=== PATIENT | female | born 1930 | race Caucasian/White ===

== ENCOUNTER 2017-09-16 11:41 | Inpatient (IN) | payer MEDICARE, OTHER ==
[2017-09-16] MEDS ORDERED: Ketorolac INJ* 30 MG/ML 1 ML VIAL IV PUSH ONE (13:24)
[2017-09-16] MEDS ORDERED: NS 0.9% 1000 ML* 1,000 ML IV ONE (13:24)
[2017-09-16 14:11] LABS: Urine Appearance Cloudy; Urine Blood 3+ (Negative); Urine Color Yellow; Urine Ketones Negative (Negative); Urine Protein 1+(30 mg/dL) (Negative); Urine Specific Gravity 1.015 (1.010-1.030); Urine Urobilinogen Negative (Negative)
[2017-09-16 14:18] LABS: ABS Basophils 0 10^3/ul (0-0.2); ABS Eosinophils 0.2 10^3/ul (0-0.6); ABS Lymphocytes 0.8 10^3/ul (1.0-4.8); ABS Monocytes 0.6 10^3/ul (0-0.8); ABS Neutrophils 4.2 10^3/ul (1.5-7.7); ABS Nucleated RBC 0 10^3/ul; Eosinophil % 2.6 % (0-6); Hematocrit 30 % (35-47); Lymphocyte % 14.2 % (25-47); Mean Corpuscular HGB Conc 33 g/dl (31-36); Mean Corpuscular Hemoglobin 28 pg (27-31); Mean Corpuscular Volume 83 fL (80-97); Mean Platelet Volume 11.2 um3 (7.4-10.4); Nucleated Red Blood Cells % 0; Platelet Count 118 10^3/ul (150-450); Red Blood Count 3.64 10^6/ul (4.00-5.40); Red Cell Distribution Width 16 % (10.5-15); White Blood Count 5.9 10^3/ul (3.5-10.8)
[2017-09-16 14:23] LABS: EGFR Non-African American 39.4 (>60)
[2017-09-16 14:39] LABS: INR 8.17 (0.77-1.02)
[2017-09-16] MEDS ORDERED: Phytonadione INJ (Adult)* 10 MG/ML 1 ML AMP SUBCUT ONE (14:44)
[2017-09-16] MEDS ORDERED: cefTRIAXone(*) 1 GM in NS 0.9% 50 ML* 50 ML IVPB ONE (14:46)
[2017-09-16] MEDS ORDERED: Ondansetron 40 MG VIAL* 2 MG/ML 20 ML VIAL IV PRN (16:34)
[2017-09-16] MEDS ORDERED: guaiFENesin ER TAB 600 MG PO PRN (16:35)
[2017-09-16] MEDS ORDERED: traMADol TAB* 50 MG PO PRN (16:35)
--- NOTE | 2017-09-16 16:41 | RAD ---
CLINICAL HISTORY: R flank pain, blood in urine , COMPARISON: None TECHNIQUE: Multiple contiguous axial CT scans were obtained of the abdomen and pelvis, without intravenous contrast enhancement. Coronal and sagittal multiplanar reformations are submitted for review. Oral contrast was not administered. FINDINGS: The study is limited by the lack of intravenous contrast. This limits evaluation of the solid organs and vasculature. Evaluation is also limited by streak artifact from spinal fusion hardware and bilateral hip metallic hardware. This limits evaluation of the pelvic organs. LUNG BASES: The lung bases are clear. LIVER: The liver is normal in shape, size, contour, and attenuation. BILE DUCTS: There is no intrahepatic or extrahepatic biliary dilatation. GALLBLADDER: The gallbladder is normal, without pericholecystic inflammatory change. PANCREAS: The pancreas is normal, without mass or ductal dilatation. SPLEEN: Normal in size and appearance. UPPER GI TRACT: Evaluation of the gastrointestinal tract is limited by incomplete gastric distention. The upper GI tract is unremarkable. SMALL BOWEL AND MESENTERY: The small bowel is normal in contour, course, and caliber. There is no obstruction or dilatation. COLON: There is extensive diverticulosis of the transverse and descending colon. There is a tubular, vermiform, hollow viscus that is blind ending, and originates from the cecum, consistent with a normal appendix. There is no periappendiceal inflammatory change. This is best seen on axial images 76. 3. ADRENALS: Normal bilaterally. KIDNEYS: There are staghorn calculi of the upper pole of left kidney. There are nonobstructing calyceal stones of lower pole of left kidney. Additionally, there is a 0.3 cm calculus of the right UVJ. There is no appreciable hydronephrosis. BLADDER: There is a 0.2 cm calculus of the right UVJ. PELVIC ORGANS: The uterus and adnexa are grossly normal for technique. AORTA: The patient is status post aortic stent graft. 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 IVC: Unremarkable LYMPH NODES: There is no lymphadenopathy by size criteria. ABDOMINAL WALL: There is no evidence for abdominal wall hernia. BONES AND SOFT TISSUES: There is diffuse osteopenia. The patient is status post internal fixation of the left femur. The patient is status post right hip arthroplasty. The patient is status post laminectomy and spinal fusion. OTHER: None IMPRESSION: 1. LEFT NEPHROLITHIASIS, INCLUDING STAGHORN CALCULI OF THE UPPER POLE OF LEFT KIDNEY. 2. THERE IS A 0.2 CM CALCULUS OF THE RIGHT UVJ WITHOUT APPRECIABLE HYDRONEPHROSIS. 3. STATUS POST AORTIC STENT GRAFT. 4. DIVERTICULOSIS.
[2017-09-16] MEDS ORDERED: Tamsulosin CAP* 0.4 MG PO ONE (17:18)
[2017-09-16] MEDS ORDERED: hydrALAZINE IV* 20 MG/ML VIAL IV SLOW PU PRN (17:25)
--- NOTE | 2017-09-16 17:53 | ED ---
William Osborne Jade, scribed for Kalin Wayne MD on 09/16/17 at 1329 . GI/ HPI - HPI Summary HPI Summary: Pt is an 86 y/o female BIBA c/o flank pain. As per patient, she has been having right flank pain, abdominal pain, and hematuria for at least 1 month. Pt is a poor historian. She denies any injury or abdominal surgeries. Pt is on Coumadin. - History of Current Complaint Chief Complaint: EDFlankPain Time Seen by Provider: 09/16/17 12:33 Stated Complaint: FLANK PAIN Hx Obtained From: Patient Onset/Duration: Started Weeks Ago - At least 1 month ago, Still Present Pain Intensity: 5 Location of Pain: Other - Right flank and abdomen Associated Signs and Symptoms: Positive: Hematuria - Allergy/Home Medications Allergies/Adverse Reactions: Allergies Allergy/AdvReac Type Severity Reaction Status Date / Time No Known Allergies Allergy Verified 09/16/17 14:32 Home Medications: Home Medications Calcium Carbonate/Vitamin D3 [Calcium 600+D3 600-400 mg-Unit] 1 tab PO TID 09/16 [History Confirmed 09/16/17] Carvedilol TAB* [Coreg TAB*] 3.125 mg PO BID 09/16/17 [History Confirmed ] Losartan TAB* [Cozaar TAB*] 100 mg PO DAILY 09/16/17 [History Confirmed 09/16/17 ] Meclizine TAB* [Antivert 12.5 TAB*] 12.5 mg PO Q6HR 09/16/17 [History Confirmed 09/16/17] Meclizine TAB* [Antivert 12.5 TAB*] 12.5 mg PO QAM 09/16/17 [History Confirmed 09/16/17] Pantoprazole TAB (NF) [Protonix TAB (NF)] 40 mg PO DAILY 09/16/17 [History Confirmed 09/16/17] Warfarin TAB(*) [Coumadin TAB(*)] 1 mg PO QPM 09/16/17 [History Confirmed ] Zinc Oxide [Desitin] 13 % TOPICAL BID 09/16/17 [History Confirmed 09/16/17] amLODIPine TAB* [Norvasc 5 mg TAB*] 5 mg PO DAILY 09/16/17 [History Confirmed ] fentaNYL PATCH 12 MCG/HR * [Duragesic Patch 12 Mcg/Hr *] 12 mcg TRANSDERM Q72H 09/16/17 [History Confirmed 09/16/17] guaiFENesin ER TAB [Mucinex*] 600 mg PO BID PRN 09/16/17 [History Confirmed ] traMADol TAB* [Ultram*] 50 mg PO Q6HR PRN 09/16/17 [History Confirmed 09/16/17] PMH/Surg Hx/FS Hx/Imm Hx Cardiovascular History: Reports: Hx Hypertension Musculoskeletal History: Reports: Hx Arthritis Infectious Disease History: No Infectious Disease History: Denies: Traveled Outside the [place] in Last 30 Days - Family History Known Family History: Negative: Diabetes - Social History Alcohol Use: None Substance Use Type: Reports: None Smoking Status (MU): Never Smoked Tobacco Review of Systems Positive: Abdominal Pain Positive: flank pain - Right, hematuria All Other Systems Reviewed And Are Negative: Yes Physical Exam - Summary Physical Exam Summary: Appearance: Well appearing, no pain distress Skin: warm, dry, reflects adequate perfusion Head/face: normal Eyes: EOMI, HOWIE ENT: normal Neck: supple, non-tender Respiratory: CTA, breath sounds present Cardiovascular: RRR, pulses symmetrical Abdomen: soft. No CVA tenderness. Tenderness over the right flank and RLQ without rebound or guarding. Low transverse surgical scar. Bowel Sounds: present Musculoskeletal: normal, strength/ROM intact Neuro: sensory motor intact, A&Ox3. Mild confusion. Triage Information Reviewed: Yes Vital Signs On Initial Exam: Initial Vitals Resp 19 09/16/17 12:14 Vital Signs Reviewed: Yes Diagnostics - Vital Signs Vital Signs Temp Pulse Resp BP Pulse Ox 09/16/17 13:01 18 128/76 09/16/17 13:00 97.6 F 66 17 128/76 98 09/16/17 12:18 67 18 131/79 99 09/16/17 12:14 19 - Laboratory Lab Results: Lab Results 09/16/17 09/16/17 09/16/17 Range/Units 13:52 13:52 13:52 WBC 5.9 (3.5-10.8) 10^3/ul RBC 3.64 L (4.00-5.40) 10^6/ul Hgb 10.0 L (12.0-16.0) g/dl Hct 30 L (35-47) % MCV 83 (80-97) fL MCH 28 (27-31) pg MCHC 33 (31-36) g/dl RDW 16 H (10.5-15) % Plt Count 118 L (150-450) 10^3/ul MPV 11.2 H (7.4-10.4) um3 Neut % (Auto) 72.4 (38-83) % Lymph % (Auto) 14.2 L (25-47) % Alexander % (Auto) 10.3 H (0-7) % Eos % (Auto) 2.6 (0-6) % Baso % (Auto) 0.5 (0-2) % Absolute Neuts (auto) 4.2 (1.5-7.7) 10^3/ul Absolute Lymphs (auto) 0.8 L (1.0-4.8) 10^3/ul Absolute Monos (auto) 0.6 (0-0.8) 10^3/ul Absolute Eos (auto) 0.2 (0-0.6) 10^3/ul Absolute Basos (auto) 0 (0-0.2) 10^3/ul Absolute Nucleated RBC 0 10^3/ul Nucleated RBC % 0 INR (Anticoag Therapy) 8.17 H* (0.77-1.02) Sodium (135-145) mmol/L Potassium (3.5-5.0) mmol/L Chloride (101-111) mmol/L Carbon Dioxide (22-32) mmol/L Anion Gap (2-11) mmol/L BUN (6-24) mg/dL Creatinine (0.51-0.95) mg/dL Est GFR ( Amer) (>60) Est GFR (Non-Af Amer) (>60) BUN/Creatinine Ratio (8-20) Glucose (70-100) mg/dL Calcium (8.6-10.3) mg/dL Total Bilirubin (0.2-1.0) mg/dL AST (13-39) U/L ALT (7-52) U/L Alkaline Phosphatase (34-104) U/L Total Protein (6.4-8.9) g/dL Albumin (3.2-5.2) g/dL Globulin (2-4) g/dL Albumin/Globulin Ratio (1-3) Urine Color Yellow Urine Appearance Cloudy Urine pH 5.0 (5-9) Ur Specific [place] 1.015 (1.010-1.030) Urine Protein 1+(30 mg/dl) A (Negative) Urine Ketones Negative (Negative) Urine Blood 3+ A (Negative) Urine Nitrate Positive A (Negative) Urine Bilirubin Negative (Negative) Urine Urobilinogen Negative (Negative) Ur Leukocyte Esterase 3+ A (Negative) Urine WBC (Auto) 3+(>20/hpf) A (Absent) Urine RBC (Auto) 3+(>10/hpf) A (Absent) Ur Squamous Epith Cells Present A (Absent) Uric Acid Crystals Present A (Absent) Urine Bacteria 2+ A (Absent) Urine Glucose Negative (Negative) Blood Type 09/16/17 09/16/17 Range/Units 13:52 13:52 WBC (3.5-10.8) 10^3/ul RBC (4.00-5.40) 10^6/ul Hgb (12.0-16.0) g/dl Hct (35-47) % MCV (80-97) fL MCH (27-31) pg MCHC (31-36) g/dl RDW (10.5-15) % Plt Count (150-450) 10^3/ul MPV (7.4-10.4) um3 Neut % (Auto) (38-83) % Lymph % (Auto) (25-47) % Alexander % (Auto) (0-7) % Eos % (Auto) (0-6) % Baso % (Auto) (0-2) % Absolute Neuts (auto) (1.5-7.7) 10^3/ul Absolute Lymphs (auto) (1.0-4.8) 10^3/ul Absolute Monos (auto) (0-0.8) 10^3/ul Absolute Eos (auto) (0-0.6) 10^3/ul Absolute Basos (auto) (0-0.2) 10^3/ul Absolute Nucleated RBC 10^3/ul Nucleated RBC % INR (Anticoag Therapy) (0.77-1.02) Sodium 137 (135-145) mmol/L Potassium 4.2 (3.5-5.0) mmol/L Chloride 105 (101-111) mmol/L Carbon Dioxide 26 (22-32) mmol/L Anion Gap 6 (2-11) mmol/L BUN 45 H (6-24) mg/dL Creatinine 1.29 H (0.51-0.95) mg/dL Est GFR ( Amer) 50.6 (>60) Est GFR (Non-Af Amer) 39.4 (>60) BUN/Creatinine Ratio 34.9 H (8-20) Glucose 102 H (70-100) mg/dL Calcium 10.1 (8.6-10.3) mg/dL Total Bilirubin 1.00 (0.2-1.0) mg/dL AST 17 (13-39) U/L ALT 8 (7-52) U/L Alkaline Phosphatase 77 (34-104) U/L Total Protein 7.3 (6.4-8.9) g/dL Albumin 3.7 (3.2-5.2) g/dL Globulin 3.6 (2-4) g/dL Albumin/Globulin Ratio 1.0 (1-3) Urine Color Urine Appearance Urine pH (5-9) Ur Specific [place] (1.010-1.030) Urine Protein (Negative) Urine Ketones (Negative) Urine Blood (Negative) Urine Nitrate (Negative) Urine Bilirubin (Negative) Urine Urobilinogen (Negative) Ur Leukocyte Esterase (Negative) Urine WBC (Auto) (Absent) Urine RBC (Auto) (Absent) Ur Squamous Epith Cells (Absent) Uric Acid Crystals (Absent) Urine Bacteria (Absent) Urine Glucose (Negative) Blood Type O Positive Result Diagrams: 09/16/17 13:52 09/16/17 13:52 Lab Statement: Any lab studies that have been ordered have been reviewed, and results considered in the medical decision making process. Re-Evaluation - Re-Evaluation First Eval Change: Improved GIGU Course/Dx - Course Course Of Treatment: Patient with gross hematuria and now improved. There is blood still in the urine and the INR is greater than 8. CT scan was obtained due to pain. This is pending at time of consultation for hospitalization. Rocephin given as urine is dirty. We will consult urology if stone present. CT scan has resulted and show staghorn calculi in the left kidney. She has a right UVJ stone. This is not causing appreciable hydronephrosis. Patient has been transfused plasma and given vitamin K for her hypercoagulability due to Coumadin. Urology consult placed. They will speak directly to the hospitalist. - Diagnoses Differential Diagnoses - Female: Other - Kidney stone, bladder mass, renal mass , phlegmon, UTI Provider Diagnoses: Renal colic on right side, Urinary tract infection, Staghorn renal calculus, Ureterolithiasis, Elevated INR, Hematuria, gross - Physician Notifications Discussed Care Of Patient With: Lori Berman - Dr. Rojas from urology consuled Time Discussed With Above Provider: 15:36 Instructed by Provider To: Admit As Inpatient - Critical Care Time Critical Care Time: 30-74 min - Critical care time is exclusive of separately billable procedures Discharge - Sign-Out/Discharge Documenting (check all that apply): Discharge/Admit/Transfer - Admit - Discharge Plan Condition: Guarded Disposition: ADMITTED TO [facility] - Billing Disposition and Condition Condition: GUARDED Disposition: Admitted to [facility] The documentation as recorded by the William avilez Jade accurately reflects the service I personally performed and the decisions made by , Kalin Wayne MD.
[2017-09-16] MEDS: Meclizine TAB* 12.5 MG PO SCH ×2 (18:18→23:21)
[2017-09-16] MEDS: fentaNYL PATCH 12 MCG/HR TRANSDERM SCH (18:19)
[2017-09-16] MEDS: traMADol TAB* 50 MG PO SCH (21:03)
[2017-09-16] MEDS: Calcium/Vitamin D TAB 250/125* TAB PO SCH (21:03)
[2017-09-16] MEDS: Carvedilol TAB* 3.125 MG PO SCH (21:04)
--- NOTE | 2017-09-16 21:49 | HP ---
CC: Suki Harper NP * ADMISSION HISTORY AND PHYSICAL: DATE OF ADMISSION: 09/16/17. PRIMARY CARE PROVIDER: Suki Harper NP, at [facility]. MY ATTENDING WHILE IN THE HOSPITAL: Dr. Lori Berman.* (DICTATED BY JAYDON HERNANDEZ) CHIEF COMPLAINT: Altered mental status, flank pain. HISTORY OF PRESENT ILLNESS: Ms. Tellez is an 86-year-old female with past medical history significant for dementia, history of DVT, vertigo, hypertension , chronic pain, and GERD, who presents with one week of altered mental status on top of her base line dementia being more withdrawn, eating her meals in her room, and complaining of vague generalized pain, which the patient has a history of. The patient is a very poor historian. It is hard for her to understand questioning and often goes off on tangents related to her past medical history, which are very vague. The patient's only discrete symptom was that she states last night she had excruciating pain in her right flank, which is decreased this morning, but prompted her to contact the nurse at [facility] and the nurse sent her in. The staff at [facility] states that they sent her in because of hematuria, which they first noted this morning. The patient does not state she has never had anything like this before, but is difficult to tell the veracity of this. Based on the review of records, it looks as if the patient started going to [facility] at the end of July. The patient has no records in our system. Besides [facility] staff, no collateral source of information was able to be obtained as the patient's [id number] and daughter , who she delegated as her contacts through [facility] are unreachable. The patient's INR was 8.0. In the setting of acute bleeding, she received vitamin K in the emergency department. The patient is not anemic, not hypotensive, not tachycardic, but due to elevated INR and ongoing hematuria, we were asked to evaluate for admission. PAST MEDICAL HISTORY: DVT of the lower leg, vertigo, hypertension, GERD, chronic pain due to lumbar stenosis, dementia, anemia, thrombocytopenia, depression. PAST SURGICAL HISTORY: Left hip fracture, status post ORIF. Right hip total arthroplasty, aortic stent graft. MEDICATIONS: 1. Losartan 100 mg p.o. daily. 2. Meclizine 12.5 mg q.6 hours as needed. 3. Amlodipine 5 mg p.o. daily. 4. Protonix 40 mg p.o. daily. 5. Warfarin 3 mg p.o. daily. 6. Coreg 3.125 mg p.o. b.i.d. 7. Artemio-D 600/400 one tab p.o. daily. 8. Fentanyl 12 mcg per hour patch q.72 hours. 9. Guaifenesin 600 mg p.o. b.i.d. as needed for cough. 10. Tramadol 50 mg p.o. q.6 hours as needed for pain. ALLERGIES: No known drug allergies. FAMILY HISTORY: The patient states that both her parents of heart failure and unable to elaborate on this further. SOCIAL HISTORY: The patient denies smoking, drinking, or ever using illicit drugs. 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 The patient was . She is 17 years ago, and has two children. REVIEW OF SYSTEMS: It is difficult for the patient to respond to a review of systems. The patient denies fever, chills, chest pain, shortness of breath, nausea, vomiting, diarrhea or constipation, difficulty swallowing, easy bruising recent weight loss, rashes, dysuria or other pain. PHYSICAL EXAMINATION GENERAL: The patient is an 86-year-old female, who appears stated age and sitting comfortably in bed, in no acute distress. VITAL SIGNS: At the time of admission, temperature 97.6, pulse rate 72, respiratory rate 13, oxygen saturation 99% on room air, blood pressure 155/85. HEENT: Head: Normocephalic, atraumatic. Sclerae anicteric. No conjunctival injection. Nasal mucosa is moist. Oral mucosa moist. No pharyngeal erythema, discharge or exudate. NECK: Supple, nontender. No lymphadenopathy. No JVD. No carotid bruits auscultated. RESPIRATORY: Clear to auscultation bilaterally. No wheezes, rales or rhonchi. Good air exchange bilaterally. CARDIAC: Regular rate and rhythm. No clicks, murmurs, gallops or rubs. Pulses are 2+ in bilateral dorsalis pedis, posterior tibialis, and radial areas. No bilateral calf tenderness noted to palpation. ABDOMEN: Soft, nontender, nondistended. Bowel sounds present and normoactive in all 4 quadrants. No hepatosplenomegaly. No abdominal bruits auscultated. GENITOURINARY: No suprapubic or CVA tenderness. Urine noted in bedside commode to be light pink with absence of clots. SKIN: Clean, dry, intact. No rash. PSYCHIATRIC: Pleasant and cooperative. NEUROLOGIC: Cranial nerves II through XII intact. No focal deficits. Alert to self, year, month, but not place or time. The patient did not know who the President is. The patient has occasional difficulty with word finding. No other focal deficits. DIAGNOSTIC STUDIES/LAB DATA: White blood cell count 5.9, hemoglobin 10.0, RDW 16, platelet count 118. INR 8.17. Sodium 137, potassium 4.2, chloride 105, carbon dioxide 26, anion gap 6, BUN 45, creatinine 1.29, glucose 102, AST 17, ALT 8. Total bilirubin 0.1, alkaline phosphatase 77. Total protein 7.3, albumin 3.7, globulin 3.6. Urine yellow cloudy, pH of 5.0, specific gravity 1.015, protein +1, negative ketones, 3+ blood, positive nitrite, negative bilirubin, negative urobilinogen, 3+ leukocyte esterase, 3+ white blood cells, 3 + red blood cells, squamous epithelial cells, uric acid crystals, and urine bacteria all present. Studies: Abdomen and pelvis CT read as diverticulosis, normal appendix, staghorn calculi in the upper pole of the left kidney, nonobstructive calyceal stones in lower pole of the left kidney, 0.3 cm calculus in the right UVJ. No appreciable hydronephrosis. Aortic stent graft. ASSESSMENT AND PLAN/IMPRESSION: Ms. Tellez is an 86-year-old female with past medical history significant for deep venous thromboses, on Coumadin therapy , hypertension, gastroesophageal reflux disease, and dementia, who presents with gross hematuria in the setting of a supratherapeutic INR at 8.17. The patient received vitamin K in the emergency department and is mildly anemic. The patient has moderate amount of hematuria. The patient will be admitted to the hospital to monitor decrease in her INR, her hemoglobins, and for possible urological consult if no resolution. 1. Hematuria. The patient's hematuria is likely related to the supratherapeutic INR in the setting of small amount of obstructing renal calculi. The patient was given vitamin K in the emergency department. The patient has a fresh-frozen plasma available; however, she is currently only mildly anemic, which according to [facility] is around her baseline and is not having brisk hematuria. The patient will be monitored with hemoglobin and hematocrits, serial INRs, and repeat vitamin K as needed. The patient does not have clots in her urine and does not have a large amount of clot burden noted in her bladder on CT. There should be a consideration for urological consult if the patient's pain changes significantly in character, repeat imaging of the abdomen should be ordered as indicated for concern for hydronephrosis developing. However, the patient's stones are rather small and not likely to obstruct and will likely pass on their own. The patient will be given Flomax for facilitating passage of her kidney stone as well as pain control. This should be continued as tolerated by the patient's blood pressure. 2. Nephrolithiasis. The patient has staghorn calculi likely related to her urinary tract infection, which may have been going on for up to a week. The patient also has uric acid crystals in her urine. It is unclear if there is one or more pathologic processes going on at this time. It is likely that given the staghorn nature of these calculi in the setting of urinary tract infection that these are infection stones causing hematuria. The patient is not in need of urgent urologic consultation; however, with her lack of improvement in the patient, Urology should be consulted for possible cauterization inside the bladder or kidneys and consideration for urologic followup outpatient to assess the need for a non-emergent removal of the patient 's stone should be considered. 3. Urinary tract infection. The patient's urine shows 3+ leukocyte esterase and positive nitrites. The patient will be started on ceftriaxone, and the patient is not septic, common culprits for infection stones should be covered by ceftriaxone. Culture is pending. Blood cultures will be drawn. 4. History of deep venous thrombosis. The patient is supratherapeutic on her warfarin likely due to her lethargy over the past week and likely decreased oral intake. The patient's previous INRs were all therapeutic or mildly supratherapeutic. The patient will have her warfarin held at this time and has been given vitamin K. 5. Vertigo. Continue p.r.n. meclizine. 6. Chronic pain. Continue fentanyl and p.r.n. tramadol, renally dosed. 7. Acute kidney injury. Elevated creatinine, unknown chronicity. The patient' s creatinine is 1.29. The patient does not appear to be dehydrated. We will give gentle fluids and assess for improvement of the patient's creatinine. It is unknown if the patient has chronic kidney disease and if she does to what degree. 8. Hypertension. Continue amlodipine. Hold losartan in the setting of increased creatinine, possibly acute. Continue Coreg. 9. Gastroesophageal reflux disease. Continue Protonix. The patient has no known history of peptic ulcer disease, order a stool occult blood to assess for possible gastrointestinal bleeding in the setting of supratherapeutic INR. 10. Dementia, supportive care. The patient is a poor historian. We will attempt to gain further history from the patient's daughter and [id number] when they are available. 11. DVT prophylaxis: The patient is supratherapeutic on her INR. The patient is at high risk due to the history of DVT. 12. Fluids, electrolytes, and nutrition: The patient will have a heart- healthy diet without caffeine and lactated Ringer's of 75 mL an hour. 13. Code status. The patient indicates she would like to be DNR; however, she is not competent to make decisions at this time. The patient will be full code. Pending discussion with her daughter, who is her power of trial attorney and healthcare proxy. 14. Disposition. The patient is admitted inpatient. TIME SPENT: Approximately, 75 minutes was spent on this admission, 45 of which was spent [id number] with the patient obtaining history and physical and discussing the treatment plan. This plan was discussed with my attending, Dr. Lori Berman, and she is in agreement as well. JAYDON HERNANDEZ [id number]/CPS #: [id number]
[2017-09-17] MEDS: Omeprazole CAP* 20 MG PO SCH (05:49)
[2017-09-17] MEDS: Meclizine TAB* 12.5 MG PO SCH ×6 (05:50→23:48)
[2017-09-17 07:03] LABS: INR 2.69 (0.77-1.02)
[2017-09-17 07:09] LABS: Hematocrit 24 % (35-47); Hemoglobin 8.2 g/dl (12.0-16.0); Mean Corpuscular HGB Conc 34 g/dl (31-36); Mean Corpuscular Hemoglobin 28 pg (27-31); Mean Corpuscular Volume 82 fL (80-97); Mean Platelet Volume 11.3 um3 (7.4-10.4); Platelet Count 80 10^3/ul (150-450); Red Blood Count 2.98 10^6/ul (4.00-5.40); Red Cell Distribution Width 16 % (10.5-15); White Blood Count 4.7 10^3/ul (3.5-10.8)
[2017-09-17 07:16] LABS: EGFR Non-African American 44.1 (>60)
[2017-09-17 07:33] LABS: ABS Basophils 0 10^3/ul (0-0.2); ABS Eosinophils 0.2 10^3/ul (0-0.6); ABS Lymphocytes 0.6 10^3/ul (1.0-4.8); ABS Monocytes 0.5 10^3/ul (0-0.8); ABS Neutrophils 3.4 10^3/ul (1.5-7.7); ABS Nucleated RBC 0 10^3/ul; Eosinophil % 3.3 % (0-6); Lymphocyte % 12.2 % (25-47); Nucleated Red Blood Cells % 0.1
[2017-09-17] MEDS: Acetaminophen TAB* 325 MG PO PRN (07:56)
[2017-09-17] MEDS: amLODIPine TAB* 5 MG PO SCH (07:57)
[2017-09-17] MEDS: Carvedilol TAB* 3.125 MG PO SCH ×2 (07:57→21:12)
[2017-09-17] MEDS: Calcium/Vitamin D TAB 250/125* TAB PO SCH ×3 (07:57→21:12)
[2017-09-17] MEDS: traMADol TAB* 50 MG PO SCH ×2 (07:57→21:11)
--- NOTE | 2017-09-17 08:23 | PN ---
Subjective Date of Service: 09/17/17 Interval History: Seen and evaluated at the bedside at 1600: Patient reports she is feeling "much better today compared to yesterday". She reports she was up in the chair today. She denies any abdominal pain/N/V. She reports "right low back/butt pain" while pointing to her right hip. Denies flank pain. She states this pain travels down her right leg. Denies numbness or tingling. No fevers or chills She is not sure if she has blood in her urine. Denies dysuria Objective Active Medications: Acetaminophen (Tylenol Tab*) 650 mg PO Q6H PRN PRN Reason: FEVER/PAIN Last Admin: 09/17/17 07:56 Dose: 650 mg Amlodipine Besylate (Norvasc Tab*) 5 mg PO DAILY [facility] Last Admin: 09/17/17 07:57 Dose: 5 mg Calcium/Vitamin D (Oscal D Tab 250/125*) 1 tab PO TID [facility] Last Admin: 09/17/17 07:57 Dose: 1 tab Carvedilol (Coreg Tab*) 3.125 mg PO BID [facility] Last Admin: 09/17/17 07:57 Dose: 3.125 mg Fentanyl (Duragesic Patch 12 Mcg/Hr *) 12 mcg TRANSDERM Q72H [facility] Last Admin: 09/16/17 18:19 Dose: 12 mcg Guaifenesin (Mucinex*) 600 mg PO BID PRN PRN Reason: COUGH Hydralazine HCl (Apresoline Iv*) 5 mg IV SLOW PU Q6H PRN PRN Reason: SYSTOLIC BP GREATER THAN: Lactated Ringer's (Lactated Ringers 1000 Ml Bag*) 1,000 mls @ 75 mls/hr IV PER RATE [facility] Last Admin: 09/17/17 05:55 Dose: 75 mls/hr Ceftriaxone Sodium 1 gm/ (Sodium Chloride) 50 mls @ 200 mls/hr IVPB Q24H [facility] Meclizine HCl (Antivert Tab*) 12.5 mg PO Q6HR [facility] Last Admin: 09/17/17 05:50 Dose: 12.5 mg Meclizine HCl (Antivert Tab*) 12.5 mg PO QAM [facility] Last Admin: 09/17/17 07:59 Dose: Not Given Omeprazole (Prilosec Cap*) 20 mg PO DAILY@0730 [facility] Last Admin: 09/17/17 05:49 Dose: 20 mg Ondansetron HCl (Zofran 40 Mg Vial*) 4 mg IV Q6H PRN PRN Reason: NAUSEA Tramadol HCl (Ultram*) 50 mg PO Q12HR [facility] Last Admin: 09/17/17 07:57 Dose: 50 mg Vital Signs - 8 hr 09/17/17 09/17/17 03:37 07:57 Pulse Rate 69 Respiratory 16 16 Rate Blood Pressure 128/66 (mmHg) O2 Sat by Pulse 97 Oximetry Oxygen Devices in Use Now: None Appearance: 86 yo female alert and orientd with noted cognitive decline. Eyes: No Scleral Icterus, PERRLA Ears/Nose/Mouth/Throat: NL Teeth, Lips, Gums, Mucous Membranes Moist Neck: NL Appearance and Movements; NL JVP Respiratory: Symmetrical Chest Expansion and Respiratory Effort, Clear to Auscultation Cardiovascular: NL Sounds; No Murmurs; No JVD, RRR, No Edema Abdominal: NL Sounds; No Tenderness; No Distention, - - no CVA tenderness Extremities: No Edema, No Clubbing, Cyanosis, - - right sacroiliac joint tender to palpation Skin: No Rash or Ulcers, No Nodules or Sclerosis Neurological: NL Sensation, NL Muscle Strength and Tone - alert & oriented Lines/Tubes/Other Access: Clean, Dry and Intact Peripheral IV Nutrition: Taking PO's Result Diagrams: 09/17/17 10:11 09/17/17 06:26 Additional Lab and Data: Lab Results 09/16/17 09/16/17 09/16/17 Range/Units 13:52 13:52 13:52 WBC 5.9 (3.5-10.8) 10^3/ul RBC 3.64 L (4.00-5.40) 10^6/ul Hgb 10.0 L (12.0-16.0) g/dl Hct 30 L (35-47) % MCV 83 (80-97) fL MCH 28 (27-31) pg MCHC 33 (31-36) g/dl RDW 16 H (10.5-15) % Plt Count 118 L (150-450) 10^3/ul MPV 11.2 H (7.4-10.4) um3 Neut % (Auto) 72.4 (38-83) % Lymph % (Auto) 14.2 L (25-47) % [place] % (Auto) 10.3 H (0-7) % Eos % (Auto) 2.6 (0-6) % Baso % (Auto) 0.5 (0-2) % Absolute Neuts (auto) 4.2 (1.5-7.7) 10^3/ul Absolute Lymphs (auto) 0.8 L (1.0-4.8) 10^3/ul Absolute Monos (auto) 0.6 (0-0.8) 10^3/ul Absolute Eos (auto) 0.2 (0-0.6) 10^3/ul Absolute Basos (auto) 0 (0-0.2) 10^3/ul Absolute Nucleated RBC 0 10^3/ul Nucleated RBC % 0 INR (Anticoag Therapy) 8.17 H* (0.77-1.02) Sodium (135-145) mmol/L Potassium (3.5-5.0) mmol/L Chloride (101-111) mmol/L Carbon Dioxide (22-32) mmol/L Anion Gap (2-11) mmol/L BUN (6-24) mg/dL Creatinine (0.51-0.95) mg/dL Est GFR ( Amer) (>60) Est GFR (Non-Af Amer) (>60) BUN/Creatinine Ratio (8-20) Glucose (70-100) mg/dL Calcium (8.6-10.3) mg/dL Total Bilirubin (0.2-1.0) mg/dL AST (13-39) U/L ALT (7-52) U/L Alkaline Phosphatase (34-104) U/L Total Protein (6.4-8.9) g/dL Albumin (3.2-5.2) g/dL Globulin (2-4) g/dL Albumin/Globulin Ratio (1-3) Urine Color Yellow Urine Appearance Cloudy Urine pH 5.0 (5-9) Ur Specific [place] 1.015 (1.010-1.030) Urine Protein 1+(30 mg/dl) A (Negative) Urine Ketones Negative (Negative) Urine Blood 3+ A (Negative) Urine Nitrate Positive A (Negative) Urine Bilirubin Negative (Negative) Urine Urobilinogen Negative (Negative) Ur Leukocyte Esterase 3+ A (Negative) Urine WBC (Auto) 3+(>20/hpf) A (Absent) Urine RBC (Auto) 3+(>10/hpf) A (Absent) Ur Squamous Epith Cells Present A (Absent) Uric Acid Crystals Present A (Absent) Urine Bacteria 2+ A (Absent) Urine Glucose Negative (Negative) Blood Type 09/16/17 09/16/17 Range/Units 13:52 13:52 WBC (3.5-10.8) 10^3/ul RBC (4.00-5.40) 10^6/ul Hgb (12.0-16.0) g/dl Hct (35-47) % MCV (80-97) fL MCH (27-31) pg MCHC (31-36) g/dl RDW (10.5-15) % Plt Count (150-450) 10^3/ul MPV (7.4-10.4) um3 Neut % (Auto) (38-83) % Lymph % (Auto) (25-47) % [place] % (Auto) (0-7) % Eos % (Auto) (0-6) % Baso % (Auto) (0-2) % Absolute Neuts (auto) (1.5-7.7) 10^3/ul Absolute Lymphs (auto) (1.0-4.8) 10^3/ul Absolute Monos (auto) (0-0.8) 10^3/ul Absolute Eos (auto) (0-0.6) 10^3/ul Absolute Basos (auto) (0-0.2) 10^3/ul Absolute Nucleated RBC 10^3/ul Nucleated RBC % INR (Anticoag Therapy) (0.77-1.02) Sodium 137 (135-145) mmol/L Potassium 4.2 (3.5-5.0) mmol/L Chloride 105 (101-111) mmol/L Carbon Dioxide 26 (22-32) mmol/L Anion Gap 6 (2-11) mmol/L BUN 45 H (6-24) mg/dL Creatinine 1.29 H (0.51-0.95) mg/dL Est GFR ( Amer) 50.6 (>60) Est GFR (Non-Af Amer) 39.4 (>60) BUN/Creatinine Ratio 34.9 H (8-20) Glucose 102 H (70-100) mg/dL Calcium 10.1 (8.6-10.3) mg/dL Total Bilirubin 1.00 (0.2-1.0) mg/dL AST 17 (13-39) U/L ALT 8 (7-52) U/L Alkaline Phosphatase 77 (34-104) U/L Total Protein 7.3 (6.4-8.9) g/dL Albumin 3.7 (3.2-5.2) g/dL Globulin 3.6 (2-4) g/dL Albumin/Globulin Ratio 1.0 (1-3) Urine Color Urine Appearance Urine pH (5-9) Ur Specific [place] (1.010-1.030) Urine Protein (Negative) Urine Ketones (Negative) Urine Blood (Negative) Urine Nitrate (Negative) Urine Bilirubin (Negative) Urine Urobilinogen (Negative) Ur Leukocyte Esterase (Negative) Urine WBC (Auto) (Absent) Urine RBC (Auto) (Absent) Ur Squamous Epith Cells (Absent) Uric Acid Crystals (Absent) Urine Bacteria (Absent) Urine Glucose (Negative) Blood Type O Positive Microbiology and Other Data: Microbiology 09/16/17 18:00 Nasal Screen MRSA (PCR)(NEIDA) - Final Nasal Mrsa Not Detected Assess/Plan/Problems-Billing Assessment: 86 yo female from [employer] [place] with a PMH of DVT on coumadin, HTN, GERD , Dementia who presented with gross hematuria, flank/back pain and INR 8. Patient received Vitamin K in the ED. - Patient Problems (1) Hematuria Comment: - unclear if the patient is continuing to have hematuria. Per nursing staff they do not think so but cannot confirm this and patient is a poor historian. - HH stable. Suspect secondary to supratherapuetic INR in the setting of UTI - continue to monitor. Plan to hold coumadin at this point. (2) UTI (urinary tract infection) Comment: -continue ceftriaxone. Await urine and blood cx. No signs of sepsis. - elevated creatinine but do not know baseline, improving. - Repeat labs in am (3) Renal calculi Comment: - CT abdomen showing 0.2cm calculus (no hydronephrosis) and left nephrolithiasis including a staghorn calculi. Non-emergent. Call urology Monday , most likely this can wait as an outpt. Creatinine trending down, today 1.17, do not know baseline. (4) Chronic pain Comment: - secondary to lumbar stenosis. Fentanyl patch used at home, continue home dose 12 mcg/Q72 hours and Tramadol prn - unclear if her complaint of right hip/low back pain is d/t to chronic hx or if this is new. concerned she could have had a fall at home. Plan to obtain xray of the right hip. (5) DVT (deep venous thrombosis) Comment: - unclear to when she was dx with DVT of the lower leg. Pt is a poor historian. No records at [facility] to confirm. Called daughter with no answer. At this point plan to hold coumadin. (6) HTN (hypertension) Comment: controlled. continue home dose coreg and norvasc (7) Dementia Comment: - supportive treatment (8) DVT prophylaxis Comment: - therapuetic INR (9) Full code status Status and Disposition: Inpatient with hematuria and supratherapuetic INR abnd UTI. Most likely [employer] at discharge
[2017-09-17 10:17] LABS: Hematocrit 26 % (35-47); Hemoglobin 8.5 g/dl (12.0-16.0)
[2017-09-17] MEDS: cefTRIAXone(*) 1 GM in NS 0.9% 50 ML* 50 ML IVPB SCH (15:38)
--- NOTE | 2017-09-17 17:18 | RAD ---
HISTORY: fall/trauma, right hip pain COMPARISONS: None VIEWS: 4, Frontal view of the pelvis with frontal and frog-leg views of the right hip FINDINGS: BONE DENSITY: There is diffuse osteopenia. BONES: The patient is status post right hip arthroplasty. There is no appreciable hardware failure or osteolysis. The patient is status post internal fixation of the proximal left femur. JOINTS: The patient is status post right hip arthroplasty. There is advanced osteoarthritis of the left hip. There is osteoarthritis of the SI joints. ALIGNMENT: There is no dislocation. SOFT TISSUES: There is peripheral arterial calcification. An aortic stent graft is noted. OTHER FINDINGS: None. IMPRESSION: 1. OSTEOPENIA. 2. OSTEOARTHRITIS. 3. STATUS POST RIGHT HIP ARTHROPLASTY. 4. PERIPHERAL ARTERIAL DISEASE. 5. NO ACUTE OSSEOUS INJURY. THE DEGREE OF OSTEOPENIA MAY MAKE A NONDISPLACED FRACTURE RADIOGRAPHICALLY OCCULT. IF SYMPTOMS PERSIST, RECOMMEND REPEAT IMAGING.
[2017-09-17] MEDS ORDERED: ALPRAZolam TAB* 0.25 MG PO ONE (18:26)
[2017-09-18] MEDS: Omeprazole CAP* 20 MG PO SCH (05:57)
[2017-09-18] MEDS: Meclizine TAB* 12.5 MG PO SCH ×5 (05:57→23:59)
[2017-09-18 06:26] LABS: ABS Basophils 0 10^3/ul (0-0.2); ABS Eosinophils 0.2 10^3/ul (0-0.6); ABS Lymphocytes 0.5 10^3/ul (1.0-4.8); ABS Monocytes 0.6 10^3/ul (0-0.8); ABS Neutrophils 4.5 10^3/ul (1.5-7.7); ABS Nucleated RBC 0 10^3/ul; Eosinophil % 3.2 % (0-6); Hematocrit 25 % (35-47); Hemoglobin 8.6 g/dl (12.0-16.0); Lymphocyte % 9.1 % (25-47); Mean Corpuscular HGB Conc 34 g/dl (31-36); Mean Corpuscular Hemoglobin 28 pg (27-31); Mean Corpuscular Volume 82 fL (80-97); Mean Platelet Volume 10.9 um3 (7.4-10.4); Nucleated Red Blood Cells % 0.1; Platelet Count 93 10^3/ul (150-450); Red Blood Count 3.09 10^6/ul (4.00-5.40); Red Cell Distribution Width 15 % (10.5-15); White Blood Count 5.8 10^3/ul (3.5-10.8)
[2017-09-18 06:28] LABS: INR 2.59 (0.77-1.02)
[2017-09-18 06:34] LABS: EGFR Non-African American 48.3 (>60)
[2017-09-18] MEDS: Carvedilol TAB* 3.125 MG PO SCH ×2 (09:17→20:54)
[2017-09-18] MEDS: traMADol TAB* 50 MG PO SCH ×2 (09:17→20:54)
[2017-09-18] MEDS: Calcium/Vitamin D TAB 250/125* TAB PO SCH ×3 (09:17→20:54)
[2017-09-18] MEDS: amLODIPine TAB* 5 MG PO SCH (09:18)
--- NOTE | 2017-09-18 14:06 | PN ---
Subjective Date of Service: 09/18/17 Interval History: no complaints today, feeling better. Patient is a pivot assist to the w/c at [place], non ambulatory denies chest pain or shortness of breath. denies abd pain. n/v/d. Patient is unsure if she continues to have blood in her urine , states that she does not think so. Family History: Unchanged from Admission Social History: Unchanged from Admission Past Medical History: Unchanged from Admission Objective Active Medications: Acetaminophen (Tylenol Tab*) 650 mg PO Q6H PRN PRN Reason: FEVER/PAIN Last Admin: 09/17/17 07:56 Dose: 650 mg Amlodipine Besylate (Norvasc Tab*) 5 mg PO DAILY [facility] Last Admin: 09/18/17 09:18 Dose: 5 mg Calcium/Vitamin D (Oscal D Tab 250/125*) 1 tab PO TID [facility] Last Admin: 09/18/17 13:37 Dose: 1 tab Carvedilol (Coreg Tab*) 3.125 mg PO BID [facility] Last Admin: 09/18/17 09:17 Dose: 3.125 mg Fentanyl (Duragesic Patch 12 Mcg/Hr *) 12 mcg TRANSDERM Q72H [facility] Last Admin: 09/16/17 18:19 Dose: 12 mcg Guaifenesin (Mucinex*) 600 mg PO BID PRN PRN Reason: COUGH Hydralazine HCl (Apresoline Iv*) 5 mg IV SLOW PU Q6H PRN PRN Reason: SYSTOLIC BP GREATER THAN: Ceftriaxone Sodium 1 gm/ (Sodium Chloride) 50 mls @ 200 mls/hr IVPB Q24H [facility] Last Admin: 09/17/17 15:38 Dose: 200 mls/hr Meclizine HCl (Antivert Tab*) 12.5 mg PO Q6HR [facility] Last Admin: 09/18/17 13:04 Dose: Not Given Meclizine HCl (Antivert Tab*) 12.5 mg PO QAM [facility] Last Admin: 09/18/17 09:18 Dose: Not Given Omeprazole (Prilosec Cap*) 20 mg PO DAILY@0730 [facility] Last Admin: 09/18/17 05:57 Dose: 20 mg Ondansetron HCl (Zofran 40 Mg Vial*) 4 mg IV Q6H PRN PRN Reason: NAUSEA Tramadol HCl (Ultram*) 50 mg PO Q12HR [facility] Last Admin: 09/18/17 09:17 Dose: 50 mg Vital Signs - 8 hr 09/18/17 09/18/17 09/18/17 07:55 08:00 09:17 Temperature 98.3 F Pulse Rate 73 Respiratory 18 16 16 Rate Blood Pressure 125/67 (mmHg) O2 Sat by Pulse 99 Oximetry 09/18/17 09/18/17 11:10 11:24 Temperature 98.3 F Pulse Rate 72 Respiratory 16 18 Rate Blood Pressure 104/62 (mmHg) O2 Sat by Pulse 98 Oximetry Oxygen Devices in Use Now: None Appearance: elderly female, appears comfortable resting in bed, no acute distress Eyes: No Scleral Icterus Ears/Nose/Mouth/Throat: NL Teeth, Lips, Gums, Mucous Membranes Moist Neck: NL Appearance and Movements; NL JVP, Trachea Midline Respiratory: Symmetrical Chest Expansion and Respiratory Effort, Clear to Auscultation Cardiovascular: NL Sounds; No Murmurs; No JVD, No Edema Abdominal: NL Sounds; No Tenderness; No Distention Extremities: No Edema, No Clubbing, Cyanosis Skin: No Rash or Ulcers, No Nodules or Sclerosis Neurological: - - alert and oriented Result Diagrams: 09/18/17 06:03 09/18/17 06:03 Additional Lab and Data: Lab Results 09/16/17 09/16/17 09/16/17 Range/Units 13:52 13:52 13:52 WBC 5.9 (3.5-10.8) 10^3/ul RBC 3.64 L (4.00-5.40) 10^6/ul Hgb 10.0 L (12.0-16.0) g/dl Hct 30 L (35-47) % MCV 83 (80-97) fL MCH 28 (27-31) pg MCHC 33 (31-36) g/dl RDW 16 H (10.5-15) % Plt Count 118 L (150-450) 10^3/ul MPV 11.2 H (7.4-10.4) um3 Neut % (Auto) 72.4 (38-83) % Lymph % (Auto) 14.2 L (25-47) % [place] % (Auto) 10.3 H (0-7) % Eos % (Auto) 2.6 (0-6) % Baso % (Auto) 0.5 (0-2) % Absolute Neuts (auto) 4.2 (1.5-7.7) 10^3/ul Absolute Lymphs (auto) 0.8 L (1.0-4.8) 10^3/ul Absolute Monos (auto) 0.6 (0-0.8) 10^3/ul Absolute Eos (auto) 0.2 (0-0.6) 10^3/ul Absolute Basos (auto) 0 (0-0.2) 10^3/ul Absolute Nucleated RBC 0 10^3/ul Nucleated RBC % 0 INR (Anticoag Therapy) 8.17 H* (0.77-1.02) Sodium (135-145) mmol/L Potassium (3.5-5.0) mmol/L Chloride (101-111) mmol/L Carbon Dioxide (22-32) mmol/L Anion Gap (2-11) mmol/L BUN (6-24) mg/dL Creatinine (0.51-0.95) mg/dL Est GFR ( Amer) (>60) Est GFR (Non-Af Amer) (>60) BUN/Creatinine Ratio (8-20) Glucose (70-100) mg/dL Calcium (8.6-10.3) mg/dL Total Bilirubin (0.2-1.0) mg/dL AST (13-39) U/L ALT (7-52) U/L Alkaline Phosphatase (34-104) U/L Total Protein (6.4-8.9) g/dL Albumin (3.2-5.2) g/dL Globulin (2-4) g/dL Albumin/Globulin Ratio (1-3) Urine Color Yellow Urine Appearance Cloudy Urine pH 5.0 (5-9) Ur Specific [place] 1.015 (1.010-1.030) Urine Protein 1+(30 mg/dl) A (Negative) Urine Ketones Negative (Negative) Urine Blood 3+ A (Negative) Urine Nitrate Positive A (Negative) Urine Bilirubin Negative (Negative) Urine Urobilinogen Negative (Negative) Ur Leukocyte Esterase 3+ A (Negative) Urine WBC (Auto) 3+(>20/hpf) A (Absent) Urine RBC (Auto) 3+(>10/hpf) A (Absent) Ur Squamous Epith Cells Present A (Absent) Uric Acid Crystals Present A (Absent) Urine Bacteria 2+ A (Absent) Urine Glucose Negative (Negative) Blood Type 09/16/17 09/16/17 Range/Units 13:52 13:52 WBC (3.5-10.8) 10^3/ul RBC (4.00-5.40) 10^6/ul Hgb (12.0-16.0) g/dl Hct (35-47) % MCV (80-97) fL MCH (27-31) pg MCHC (31-36) g/dl RDW (10.5-15) % Plt Count (150-450) 10^3/ul MPV (7.4-10.4) um3 Neut % (Auto) (38-83) % Lymph % (Auto) (25-47) % [place] % (Auto) (0-7) % Eos % (Auto) (0-6) % Baso % (Auto) (0-2) % Absolute Neuts (auto) (1.5-7.7) 10^3/ul Absolute Lymphs (auto) (1.0-4.8) 10^3/ul Absolute Monos (auto) (0-0.8) 10^3/ul Absolute Eos (auto) (0-0.6) 10^3/ul Absolute Basos (auto) (0-0.2) 10^3/ul Absolute Nucleated RBC 10^3/ul Nucleated RBC % INR (Anticoag Therapy) (0.77-1.02) Sodium 137 (135-145) mmol/L Potassium 4.2 (3.5-5.0) mmol/L Chloride 105 (101-111) mmol/L Carbon Dioxide 26 (22-32) mmol/L Anion Gap 6 (2-11) mmol/L BUN 45 H (6-24) mg/dL Creatinine 1.29 H (0.51-0.95) mg/dL Est GFR ( Amer) 50.6 (>60) Est GFR (Non-Af Amer) 39.4 (>60) BUN/Creatinine Ratio 34.9 H (8-20) Glucose 102 H (70-100) mg/dL Calcium 10.1 (8.6-10.3) mg/dL Total Bilirubin 1.00 (0.2-1.0) mg/dL AST 17 (13-39) U/L ALT 8 (7-52) U/L Alkaline Phosphatase 77 (34-104) U/L Total Protein 7.3 (6.4-8.9) g/dL Albumin 3.7 (3.2-5.2) g/dL Globulin 3.6 (2-4) g/dL Albumin/Globulin Ratio 1.0 (1-3) Urine Color Urine Appearance Urine pH (5-9) Ur Specific [place] (1.010-1.030) Urine Protein (Negative) Urine Ketones (Negative) Urine Blood (Negative) Urine Nitrate (Negative) Urine Bilirubin (Negative) Urine Urobilinogen (Negative) Ur Leukocyte Esterase (Negative) Urine WBC (Auto) (Absent) Urine RBC (Auto) (Absent) Ur Squamous Epith Cells (Absent) Uric Acid Crystals (Absent) Urine Bacteria (Absent) Urine Glucose (Negative) Blood Type O Positive Microbiology and Other Data: Microbiology 09/16/17 18:00 Nasal Screen MRSA (PCR)(NEIDA) - Final Nasal Mrsa Not Detected Assess/Plan/Problems-Billing Assessment: 86 yo female from [place] with a PMH of DVT on coumadin, HTN, GERD , Dementia who presented with gross hematuria, flank/back pain and INR 8. Patient received Vitamin K in the ED. - Patient Problems (1) UTI (urinary tract infection) Current Visit: Yes Status: Acute Comment: -continue ceftriaxone. - Urine culture - e-coli- sens pending - Blood culture - no growth 1 day - No signs of sepsis. - elevated creatinine but do not know baseline, improving. - Repeat labs in am (2) Hematuria Current Visit: Yes Status: Acute Code(s): R31.9 - HEMATURIA, UNSPECIFIED SNOMED Code(s): 02411257 Comment: - unclear if the patient is continuing to have hematuria. Per nursing staff reports no reports of hematuria but cannot confirm this and patient is a poor historian - HH stable. Suspect secondary to supratherapuetic INR in the setting of UTI - continue to monitor. (3) Coagulopathy Current Visit: Yes Status: Acute Comment: INR on admission 8.17- repeat today 2.59- coumadin was held - will restart coumadin at 1 mg. (4) HTN (hypertension) Current Visit: Yes Status: Chronic Code(s): I10 - ESSENTIAL (PRIMARY) HYPERTENSION SNOMED Code(s): 50987271 Comment: controlled. continue home dose coreg and norvasc (5) Dementia Current Visit: Yes Status: Chronic Code(s): F03.90 - UNSPECIFIED DEMENTIA WITHOUT BEHAVIORAL DISTURBANCE SNOMED Code(s): 16399462 Comment: - supportive treatment (6) DVT prophylaxis Current Visit: Yes Status: Acute Code(s): KJZ7136 - SNOMED Code(s): 619356861 Comment: - therapuetic INR- coumadin restarted today (7) Full code status Current Visit: Yes Status: Acute Code(s): Z78.9 - OTHER SPECIFIED HEALTH STATUS SNOMED Code(s): 091884156 Status and Disposition: Inpatient with hematuria and supratherapuetic INR abnd UTI. Most likely discharge to [place] tomorrow
[2017-09-18] MEDS: cefTRIAXone(*) 1 GM in NS 0.9% 50 ML* 50 ML IVPB SCH (15:30)
[2017-09-19 07:04] LABS: INR 1.83 (0.77-1.02)
[2017-09-19] MEDS: Omeprazole CAP* 20 MG PO SCH (07:05)
[2017-09-19] MEDS: Meclizine TAB* 12.5 MG PO SCH ×5 (07:05→23:41)
[2017-09-19] MEDS: fentaNYL Patch Check Q Shift 1 NOTE SCH ×2 (07:05→18:55)
[2017-09-19 07:11] LABS: Hematocrit 22 % (35-47); Hemoglobin 7.4 g/dl (12.0-16.0); Mean Corpuscular HGB Conc 34 g/dl (31-36); Mean Corpuscular Hemoglobin 28 pg (27-31); Mean Corpuscular Volume 83 fL (80-97); Platelet Count 62 10^3/ul (150-450); Red Blood Count 2.67 10^6/ul (4.00-5.40); Red Cell Distribution Width 16 % (10.5-15); White Blood Count 5.1 10^3/ul (3.5-10.8)
[2017-09-19 07:47] LABS: ABS Basophils 0 10^3/ul (0-0.2); ABS Eosinophils 0.2 10^3/ul (0-0.6); ABS Lymphocytes 0.6 10^3/ul (1.0-4.8); ABS Monocytes 0.8 10^3/ul (0-0.8); ABS Neutrophils 3.5 10^3/ul (1.5-7.7); ABS Nucleated RBC 0 10^3/ul; Eosinophil % 3.5 % (0-6); Lymphocyte % 12.5 % (25-47); Nucleated Red Blood Cells % 0
[2017-09-19] MEDS: Carvedilol TAB* 3.125 MG PO SCH ×2 (08:27→20:47)
[2017-09-19] MEDS: Calcium/Vitamin D TAB 250/125* TAB PO SCH ×3 (08:28→20:48)
[2017-09-19] MEDS: amLODIPine TAB* 5 MG PO SCH (08:28)
[2017-09-19] MEDS: traMADol TAB* 50 MG PO SCH ×2 (08:28→20:47)
[2017-09-19 12:52] LABS: Hematocrit 23 % (35-47); Hemoglobin 7.9 g/dl (12.0-16.0); Mean Platelet Volume 10.3 um3 (7.4-10.4); Platelet Count 81 10^3/ul (150-450)
[2017-09-19] MEDS: cefTRIAXone(*) 1 GM in NS 0.9% 50 ML* 50 ML IVPB SCH (15:35)
[2017-09-19] MEDS: fentaNYL PATCH 12 MCG/HR TRANSDERM SCH (17:08)
--- NOTE | 2017-09-19 17:54 | PN ---
Subjective Date of Service: 09/19/17 Interval History: No complaints today. Asking if she can return to [place] today. Am labs shows a drop in H/H from 8.6/25 to 7.4/22. Nursing staff reports that patient had blood tinged urine over night. day nurse reports no blood in urine today. Denies chest pain or shortness of breath. denies abd pain n/v/d Family History: Unchanged from Admission Social History: Unchanged from Admission Past Medical History: Unchanged from Admission Objective Active Medications: Acetaminophen (Tylenol Tab*) 650 mg PO Q6H PRN PRN Reason: FEVER/PAIN Last Admin: 09/17/17 07:56 Dose: 650 mg Amlodipine Besylate (Norvasc Tab*) 5 mg PO DAILY [facility] Last Admin: 09/19/17 08:28 Dose: 5 mg Calcium/Vitamin D (Oscal D Tab 250/125*) 1 tab PO TID [facility] Last Admin: 09/19/17 12:49 Dose: 1 tab Carvedilol (Coreg Tab*) 3.125 mg PO BID [facility] Last Admin: 09/19/17 08:27 Dose: 3.125 mg Fentanyl (Duragesic Patch 12 Mcg/Hr *) 12 mcg TRANSDERM Q72H [facility] Last Admin: 09/19/17 17:08 Dose: 12 mcg Guaifenesin (Mucinex*) 600 mg PO BID PRN PRN Reason: COUGH Hydralazine HCl (Apresoline Iv*) 5 mg IV SLOW PU Q6H PRN PRN Reason: SYSTOLIC BP GREATER THAN: Ceftriaxone Sodium 1 gm/ (Sodium Chloride) 50 mls @ 200 mls/hr IVPB Q24H [facility] Last Admin: 09/19/17 15:35 Dose: 200 mls/hr Meclizine HCl (Antivert Tab*) 12.5 mg PO Q6HR [facility] Last Admin: 09/19/17 17:10 Dose: Not Given Meclizine HCl (Antivert Tab*) 12.5 mg PO QAM [facility] Last Admin: 09/19/17 08:28 Dose: 12.5 mg Omeprazole (Prilosec Cap*) 20 mg PO DAILY@0730 [facility] Last Admin: 09/19/17 07:05 Dose: 20 mg Ondansetron HCl (Zofran 40 Mg Vial*) 4 mg IV Q6H PRN PRN Reason: NAUSEA Pharmacy Profile Note (Fentanyl Patch Check Q Shift) 1 note N/A 0700,1900 [facility] Last Admin: 09/19/17 07:05 Dose: 1 note Tramadol HCl (Ultram*) 50 mg PO Q12HR [facility] Last Admin: 09/19/17 08:28 Dose: Not Given Vital Signs - 8 hr 09/19/17 09/19/17 09/19/17 11:18 15:23 17:08 Temperature 97.5 F 97.6 F Pulse Rate 64 67 Respiratory 22 18 14 Rate Blood Pressure 140/57 115/48 (mmHg) O2 Sat by Pulse 99 100 Oximetry Oxygen Devices in Use Now: None Appearance: appears comfortable sitting in the chair, no acute distress Eyes: No Scleral Icterus Ears/Nose/Mouth/Throat: Clear Oropharnyx, Mucous Membranes Moist Neck: NL Appearance and Movements; NL JVP, Trachea Midline Respiratory: Symmetrical Chest Expansion and Respiratory Effort, Clear to Auscultation Cardiovascular: NL Sounds; No Murmurs; No JVD, No Edema Abdominal: NL Sounds; No Tenderness; No Distention Extremities: No Edema, No Clubbing, Cyanosis Skin: No Rash or Ulcers Neurological: Alert and Oriented x 3 Nutrition: Taking PO's Result Diagrams: 09/19/17 12:35 09/19/17 06:21 Additional Lab and Data: Lab Results 09/16/17 09/16/17 09/16/17 Range/Units 13:52 13:52 13:52 WBC 5.9 (3.5-10.8) 10^3/ul RBC 3.64 L (4.00-5.40) 10^6/ul Hgb 10.0 L (12.0-16.0) g/dl Hct 30 L (35-47) % MCV 83 (80-97) fL MCH 28 (27-31) pg MCHC 33 (31-36) g/dl RDW 16 H (10.5-15) % Plt Count 118 L (150-450) 10^3/ul MPV 11.2 H (7.4-10.4) um3 Neut % (Auto) 72.4 (38-83) % Lymph % (Auto) 14.2 L (25-47) % [place] % (Auto) 10.3 H (0-7) % Eos % (Auto) 2.6 (0-6) % Baso % (Auto) 0.5 (0-2) % Absolute Neuts (auto) 4.2 (1.5-7.7) 10^3/ul Absolute Lymphs (auto) 0.8 L (1.0-4.8) 10^3/ul Absolute Monos (auto) 0.6 (0-0.8) 10^3/ul Absolute Eos (auto) 0.2 (0-0.6) 10^3/ul Absolute Basos (auto) 0 (0-0.2) 10^3/ul Absolute Nucleated RBC 0 10^3/ul Nucleated RBC % 0 INR (Anticoag Therapy) 8.17 H* (0.77-1.02) Sodium (135-145) mmol/L Potassium (3.5-5.0) mmol/L Chloride (101-111) mmol/L Carbon Dioxide (22-32) mmol/L Anion Gap (2-11) mmol/L BUN (6-24) mg/dL Creatinine (0.51-0.95) mg/dL Est GFR ( Amer) (>60) Est GFR (Non-Af Amer) (>60) BUN/Creatinine Ratio (8-20) Glucose (70-100) mg/dL Calcium (8.6-10.3) mg/dL Total Bilirubin (0.2-1.0) mg/dL AST (13-39) U/L ALT (7-52) U/L Alkaline Phosphatase (34-104) U/L Total Protein (6.4-8.9) g/dL Albumin (3.2-5.2) g/dL Globulin (2-4) g/dL Albumin/Globulin Ratio (1-3) Urine Color Yellow Urine Appearance Cloudy Urine pH 5.0 (5-9) Ur Specific [place] 1.015 (1.010-1.030) Urine Protein 1+(30 mg/dl) A (Negative) Urine Ketones Negative (Negative) Urine Blood 3+ A (Negative) Urine Nitrate Positive A (Negative) Urine Bilirubin Negative (Negative) Urine Urobilinogen Negative (Negative) Ur Leukocyte Esterase 3+ A (Negative) Urine WBC (Auto) 3+(>20/hpf) A (Absent) Urine RBC (Auto) 3+(>10/hpf) A (Absent) Ur Squamous Epith Cells Present A (Absent) Uric Acid Crystals Present A (Absent) Urine Bacteria 2+ A (Absent) Urine Glucose Negative (Negative) Blood Type 09/16/17 09/16/17 Range/Units 13:52 13:52 WBC (3.5-10.8) 10^3/ul RBC (4.00-5.40) 10^6/ul Hgb (12.0-16.0) g/dl Hct (35-47) % MCV (80-97) fL MCH (27-31) pg MCHC (31-36) g/dl RDW (10.5-15) % Plt Count (150-450) 10^3/ul MPV (7.4-10.4) um3 Neut % (Auto) (38-83) % Lymph % (Auto) (25-47) % [place] % (Auto) (0-7) % Eos % (Auto) (0-6) % Baso % (Auto) (0-2) % Absolute Neuts (auto) (1.5-7.7) 10^3/ul Absolute Lymphs (auto) (1.0-4.8) 10^3/ul Absolute Monos (auto) (0-0.8) 10^3/ul Absolute Eos (auto) (0-0.6) 10^3/ul Absolute Basos (auto) (0-0.2) 10^3/ul Absolute Nucleated RBC 10^3/ul Nucleated RBC % INR (Anticoag Therapy) (0.77-1.02) Sodium 137 (135-145) mmol/L Potassium 4.2 (3.5-5.0) mmol/L Chloride 105 (101-111) mmol/L Carbon Dioxide 26 (22-32) mmol/L Anion Gap 6 (2-11) mmol/L BUN 45 H (6-24) mg/dL Creatinine 1.29 H (0.51-0.95) mg/dL Est GFR ( Amer) 50.6 (>60) Est GFR (Non-Af Amer) 39.4 (>60) BUN/Creatinine Ratio 34.9 H (8-20) Glucose 102 H (70-100) mg/dL Calcium 10.1 (8.6-10.3) mg/dL Total Bilirubin 1.00 (0.2-1.0) mg/dL AST 17 (13-39) U/L ALT 8 (7-52) U/L Alkaline Phosphatase 77 (34-104) U/L Total Protein 7.3 (6.4-8.9) g/dL Albumin 3.7 (3.2-5.2) g/dL Globulin 3.6 (2-4) g/dL Albumin/Globulin Ratio 1.0 (1-3) Urine Color Urine Appearance Urine pH (5-9) Ur Specific [place] (1.010-1.030) Urine Protein (Negative) Urine Ketones (Negative) Urine Blood (Negative) Urine Nitrate (Negative) Urine Bilirubin (Negative) Urine Urobilinogen (Negative) Ur Leukocyte Esterase (Negative) Urine WBC (Auto) (Absent) Urine RBC (Auto) (Absent) Ur Squamous Epith Cells (Absent) Uric Acid Crystals (Absent) Urine Bacteria (Absent) Urine Glucose (Negative) Blood Type O Positive Microbiology and Other Data: Microbiology 09/16/17 18:00 Nasal Screen MRSA (PCR)(NEIDA) - Final Nasal Mrsa Not Detected Assess/Plan/Problems-Billing Assessment: 86 yo female from [place] with a PMH of DVT on coumadin, HTN, GERD , Dementia who presented with gross hematuria, flank/back pain and INR 8. Patient received Vitamin K in the ED. - Patient Problems (1) UTI (urinary tract infection) Current Visit: Yes Status: Acute Comment: - Urine culture - e-coli- sens to ceftriaxone will continue - Blood culture - no growth 2 day - No signs of sepsis. - elevated creatinine but do not know baseline, improving. - Repeat labs in am (2) Hematuria Current Visit: Yes Status: Acute Code(s): R31.9 - HEMATURIA, UNSPECIFIED SNOMED Code(s): 35317761 Comment: - unclear if the patient is continuing to have hematuria. Per nursing staff reports blood tinged urine overnight - none today - H/H dropped. Suspect secondary to supratherapuetic INR in the setting of UTI- INR is now therapuetic- did recieve 1 mg of coumadin last PM - will hold coumadin for 1 week and patient should have this re-evaluated outpatient as per family that i spoke to on the phone today - patient has been on coumadin for approx 25 years after having a DVT, family denied any knowledge of clotting disorders or recurrent DVT's. Grandson cong stated that patient has not had a DVT within the last 10 years while he was caring for her and has no known history heart disease or irregular heart beat. - continue to monitor. (3) Coagulopathy Current Visit: Yes Status: Acute Comment: INR on admission 8.17- repeat today 1.89- coumadin was held patient with blood in the urine last PM - will hold coumadin for 1 week - this should be re-evaluated as an outpatient for the need to continue. (4) HTN (hypertension) Current Visit: Yes Status: Chronic Code(s): I10 - ESSENTIAL (PRIMARY) HYPERTENSION SNOMED Code(s): 98894816 Comment: controlled. continue home dose coreg and norvasc (5) Dementia Current Visit: Yes Status: Chronic Code(s): F03.90 - UNSPECIFIED DEMENTIA WITHOUT BEHAVIORAL DISTURBANCE SNOMED Code(s): 53952794 Comment: - supportive treatment (6) DVT prophylaxis Current Visit: Yes Status: Acute Code(s): QUM9573 - SNOMED Code(s): 101835398 Comment: - therapuetic INR- hold coumadin d/t bleeding( blood in urine last PM) and decreasing h/h (7) Full code status Current Visit: Yes Status: Acute Code(s): Z78.9 - OTHER SPECIFIED HEALTH STATUS SNOMED Code(s): 888379386 Status and Disposition: Inpatient with hematuria and supratherapuetic INR abnd UTI. Most likely discharge to [place] tomorrow if H/H stable
[2017-09-19] MEDS ORDERED: Warfarin TAB(*) 1 MG PO SCH (18:30)
[2017-09-19] MEDS ORDERED: Bisacodyl SUPP* 10 MG SUPP PR PRN (20:03)
[2017-09-19] MEDS: Magnesium Hydroxide LIQ* 30 ML UDC PO PRN (20:48)
[2017-09-20] MEDS: fentaNYL Patch Check Q Shift 1 NOTE SCH ×2 (05:38→19:14)
[2017-09-20] MEDS: Meclizine TAB* 12.5 MG PO SCH ×4 (05:38→17:40)
[2017-09-20] MEDS: traMADol TAB* 50 MG PO SCH ×2 (09:51→20:43)
[2017-09-20] MEDS: Omeprazole CAP* 20 MG PO SCH (09:51)
[2017-09-20] MEDS: Carvedilol TAB* 3.125 MG PO SCH ×2 (09:52→20:42)
[2017-09-20] MEDS: Calcium/Vitamin D TAB 250/125* TAB PO SCH ×3 (09:52→20:42)
[2017-09-20] MEDS: amLODIPine TAB* 5 MG PO SCH (09:52)
[2017-09-20 10:12] LABS: Hematocrit 23 % (35-47); Hemoglobin 7.8 g/dl (12.0-16.0); Mean Corpuscular HGB Conc 34 g/dl (31-36); Mean Corpuscular Hemoglobin 28 pg (27-31); Mean Corpuscular Volume 83 fL (80-97); Mean Platelet Volume 11.2 um3 (7.4-10.4); Platelet Count 81 10^3/ul (150-450); Red Blood Count 2.77 10^6/ul (4.00-5.40); Red Cell Distribution Width 16 % (10.5-15); White Blood Count 5.2 10^3/ul (3.5-10.8)
[2017-09-20 10:27] LABS: EGFR Non-African American 54.1 (>60)
[2017-09-20] MEDS ORDERED: Docusate CAP* 100 MG PO PRN (10:44)
--- NOTE | 2017-09-20 10:51 | PN ---
Subjective Date of Service: 09/20/17 Interval History: C/o of feeling weak today, Patient denies chest pain or shortness of breath. Denies abd pain , n/v/d. No further drop in the H/H, No reports of blood in the urine, stool for occult was negative Family History: Unchanged from Admission Social History: Unchanged from Admission Past Medical History: Unchanged from Admission Objective Active Medications: Acetaminophen (Tylenol Tab*) 650 mg PO Q6H PRN PRN Reason: FEVER/PAIN Last Admin: 09/17/17 07:56 Dose: 650 mg Amlodipine Besylate (Norvasc Tab*) 5 mg PO DAILY [facility] Last Admin: 09/20/17 09:52 Dose: 5 mg Bisacodyl (Dulcolax Supp*) 10 mg [place] DAILY PRN PRN Reason: CONSTIPATION Calcium/Vitamin D (Oscal D Tab 250/125*) 1 tab PO TID [facility] Last Admin: 09/20/17 09:52 Dose: 1 tab Carvedilol (Coreg Tab*) 3.125 mg PO BID [facility] Last Admin: 09/20/17 09:52 Dose: 3.125 mg Docusate Sodium (Colace Cap*) 100 mg PO BID PRN PRN Reason: CONSTIPATION Fentanyl (Duragesic Patch 12 Mcg/Hr *) 12 mcg TRANSDERM Q72H [facility] Last Admin: 09/19/17 17:08 Dose: 12 mcg Guaifenesin (Mucinex*) 600 mg PO BID PRN PRN Reason: COUGH Hydralazine HCl (Apresoline Iv*) 5 mg IV SLOW PU Q6H PRN PRN Reason: SYSTOLIC BP GREATER THAN: Ceftriaxone Sodium 1 gm/ (Sodium Chloride) 50 mls @ 200 mls/hr IVPB Q24H [facility] Last Admin: 09/19/17 15:35 Dose: 200 mls/hr Magnesium Hydroxide (Milk Of Magnesia Liq*) 30 ml PO Q4H PRN PRN Reason: CONSTIPATION Last Admin: 09/19/17 20:48 Dose: 30 ml Meclizine HCl (Antivert Tab*) 12.5 mg PO Q6HR [facility] Last Admin: 09/20/17 05:38 Dose: Not Given Meclizine HCl (Antivert Tab*) 12.5 mg PO QAM [facility] Last Admin: 09/20/17 09:52 Dose: 12.5 mg Omeprazole (Prilosec Cap*) 20 mg PO DAILY@0730 [facility] Last Admin: 09/20/17 09:51 Dose: 20 mg Ondansetron HCl (Zofran 40 Mg Vial*) 4 mg IV Q6H PRN PRN Reason: NAUSEA Pharmacy Profile Note (Fentanyl Patch Check Q Shift) 1 note N/A 0700,1900 [facility] Last Admin: 09/20/17 05:38 Dose: 1 note Tramadol HCl (Ultram*) 50 mg PO Q12HR [facility] Last Admin: 09/20/17 09:51 Dose: 50 mg Vital Signs - 8 hr 09/20/17 09/20/17 09/20/17 03:28 07:36 09:51 Temperature 98.8 F 97.8 F Pulse Rate 70 64 Respiratory 16 19 16 Rate Blood Pressure 133/67 127/54 (mmHg) O2 Sat by Pulse 96 100 Oximetry Oxygen Devices in Use Now: None Appearance: appears comfortable resting in bed. Eyes: No Scleral Icterus Ears/Nose/Mouth/Throat: Clear Oropharnyx, Mucous Membranes Moist Neck: NL Appearance and Movements; NL JVP, Trachea Midline Respiratory: Symmetrical Chest Expansion and Respiratory Effort, Clear to Auscultation Cardiovascular: NL Sounds; No Murmurs; No JVD, RRR, No Edema Abdominal: NL Sounds; No Tenderness; No Distention Extremities: No Edema, No Clubbing, Cyanosis Skin: No Rash or Ulcers, No Nodules or Sclerosis Neurological: Alert and Oriented x 3 - does have periods of confusion. Result Diagrams: 09/20/17 09:47 09/20/17 09:47 Additional Lab and Data: Lab Results 09/16/17 09/16/17 09/16/17 Range/Units 13:52 13:52 13:52 WBC 5.9 (3.5-10.8) 10^3/ul RBC 3.64 L (4.00-5.40) 10^6/ul Hgb 10.0 L (12.0-16.0) g/dl Hct 30 L (35-47) % MCV 83 (80-97) fL MCH 28 (27-31) pg MCHC 33 (31-36) g/dl RDW 16 H (10.5-15) % Plt Count 118 L (150-450) 10^3/ul MPV 11.2 H (7.4-10.4) um3 Neut % (Auto) 72.4 (38-83) % Lymph % (Auto) 14.2 L (25-47) % [place] % (Auto) 10.3 H (0-7) % Eos % (Auto) 2.6 (0-6) % Baso % (Auto) 0.5 (0-2) % Absolute Neuts (auto) 4.2 (1.5-7.7) 10^3/ul Absolute Lymphs (auto) 0.8 L (1.0-4.8) 10^3/ul Absolute Monos (auto) 0.6 (0-0.8) 10^3/ul Absolute Eos (auto) 0.2 (0-0.6) 10^3/ul Absolute Basos (auto) 0 (0-0.2) 10^3/ul Absolute Nucleated RBC 0 10^3/ul Nucleated RBC % 0 INR (Anticoag Therapy) 8.17 H* (0.77-1.02) Sodium (135-145) mmol/L Potassium (3.5-5.0) mmol/L Chloride (101-111) mmol/L Carbon Dioxide (22-32) mmol/L Anion Gap (2-11) mmol/L BUN (6-24) mg/dL Creatinine (0.51-0.95) mg/dL Est GFR ( Amer) (>60) Est GFR (Non-Af Amer) (>60) BUN/Creatinine Ratio (8-20) Glucose (70-100) mg/dL Calcium (8.6-10.3) mg/dL Total Bilirubin (0.2-1.0) mg/dL AST (13-39) U/L ALT (7-52) U/L Alkaline Phosphatase (34-104) U/L Total Protein (6.4-8.9) g/dL Albumin (3.2-5.2) g/dL Globulin (2-4) g/dL Albumin/Globulin Ratio (1-3) Urine Color Yellow Urine Appearance Cloudy Urine pH 5.0 (5-9) Ur Specific [place] 1.015 (1.010-1.030) Urine Protein 1+(30 mg/dl) A (Negative) Urine Ketones Negative (Negative) Urine Blood 3+ A (Negative) Urine Nitrate Positive A (Negative) Urine Bilirubin Negative (Negative) Urine Urobilinogen Negative (Negative) Ur Leukocyte Esterase 3+ A (Negative) Urine WBC (Auto) 3+(>20/hpf) A (Absent) Urine RBC (Auto) 3+(>10/hpf) A (Absent) Ur Squamous Epith Cells Present A (Absent) Uric Acid Crystals Present A (Absent) Urine Bacteria 2+ A (Absent) Urine Glucose Negative (Negative) Blood Type 09/16/17 09/16/17 Range/Units 13:52 13:52 WBC (3.5-10.8) 10^3/ul RBC (4.00-5.40) 10^6/ul Hgb (12.0-16.0) g/dl Hct (35-47) % MCV (80-97) fL MCH (27-31) pg MCHC (31-36) g/dl RDW (10.5-15) % Plt Count (150-450) 10^3/ul MPV (7.4-10.4) um3 Neut % (Auto) (38-83) % Lymph % (Auto) (25-47) % [place] % (Auto) (0-7) % Eos % (Auto) (0-6) % Baso % (Auto) (0-2) % Absolute Neuts (auto) (1.5-7.7) 10^3/ul Absolute Lymphs (auto) (1.0-4.8) 10^3/ul Absolute Monos (auto) (0-0.8) 10^3/ul Absolute Eos (auto) (0-0.6) 10^3/ul Absolute Basos (auto) (0-0.2) 10^3/ul Absolute Nucleated RBC 10^3/ul Nucleated RBC % INR (Anticoag Therapy) (0.77-1.02) Sodium 137 (135-145) mmol/L Potassium 4.2 (3.5-5.0) mmol/L Chloride 105 (101-111) mmol/L Carbon Dioxide 26 (22-32) mmol/L Anion Gap 6 (2-11) mmol/L BUN 45 H (6-24) mg/dL Creatinine 1.29 H (0.51-0.95) mg/dL Est GFR ( Amer) 50.6 (>60) Est GFR (Non-Af Amer) 39.4 (>60) BUN/Creatinine Ratio 34.9 H (8-20) Glucose 102 H (70-100) mg/dL Calcium 10.1 (8.6-10.3) mg/dL Total Bilirubin 1.00 (0.2-1.0) mg/dL AST 17 (13-39) U/L ALT 8 (7-52) U/L Alkaline Phosphatase 77 (34-104) U/L Total Protein 7.3 (6.4-8.9) g/dL Albumin 3.7 (3.2-5.2) g/dL Globulin 3.6 (2-4) g/dL Albumin/Globulin Ratio 1.0 (1-3) Urine Color Urine Appearance Urine pH (5-9) Ur Specific [place] (1.010-1.030) Urine Protein (Negative) Urine Ketones (Negative) Urine Blood (Negative) Urine Nitrate (Negative) Urine Bilirubin (Negative) Urine Urobilinogen (Negative) Ur Leukocyte Esterase (Negative) Urine WBC (Auto) (Absent) Urine RBC (Auto) (Absent) Ur Squamous Epith Cells (Absent) Uric Acid Crystals (Absent) Urine Bacteria (Absent) Urine Glucose (Negative) Blood Type O Positive Microbiology and Other Data: Microbiology 09/16/17 18:00 Nasal Screen MRSA (PCR)([facility]) - Final Nasal Mrsa Not Detected Assess/Plan/Problems-Billing Assessment: 86 yo female from [place] with a PMH of DVT on coumadin, HTN, GERD , Dementia who presented with gross hematuria, flank/back pain and INR 8. Patient received Vitamin K in the ED. - Patient Problems (1) UTI (urinary tract infection) Current Visit: Yes Status: Acute Comment: - Urine culture - e-coli- sens to ceftriaxone will continue - Blood culture - no growth 3 day - No signs of sepsis. - elevated creatinine but do not know baseline, improving. - Repeat labs in am (2) Hematuria Current Visit: Yes Status: Acute Code(s): R31.9 - HEMATURIA, UNSPECIFIED SNOMED Code(s): 04810480 Comment: - unclear if the patient is continuing to have hematuria. No reports of blood in the urine overnight - H/H dropped. Suspect secondary to supratherapuetic INR in the setting of UTI- INR is now therapuetic- did recieve 1 mg of coumadin last PM - will hold coumadin for 1 week and patient should have this re-evaluated outpatient as per family that i spoke to on the phone today - patient has been on coumadin for approx 25 years after having a DVT, family denied any knowledge of clotting disorders or recurrent DVT's. Grandanjali gar stated that patient has not had a DVT within the last 10 years while he was caring for her and has no known history heart disease or irregular heart beat. - continue to monitor. (3) Anemia Current Visit: Yes Status: Acute Code(s): D64.9 - ANEMIA, UNSPECIFIED SNOMED Code(s): 996026267 Comment: - she does have a reported history of anemia - suspect this is related to hematuria d/t supratherapeutic INR in the setting of UTI- INR back to baseline 1.89 yesterday - Stool occult was negative (4) Coagulopathy Current Visit: Yes Status: Acute Comment: INR on admission 8.17- repeat today 1.89- coumadin was held patient with blood in the urine last PM - will hold coumadin for 1 week - this should be re-evaluated as an outpatient for the need to continue- will obtain medical records from her previous MD in [place] (5) HTN (hypertension) Current Visit: Yes Status: Chronic Code(s): I10 - ESSENTIAL (PRIMARY) HYPERTENSION SNOMED Code(s): 77854007 Comment: controlled. continue home dose coreg and norvasc (6) Dementia Current Visit: Yes Status: Chronic Code(s): F03.90 - UNSPECIFIED DEMENTIA WITHOUT BEHAVIORAL DISTURBANCE SNOMED Code(s): 82456696 Comment: - supportive treatment (7) DVT prophylaxis Current Visit: Yes Status: Acute Code(s): EPO9650 - SNOMED Code(s): 056429015 Comment: - therapuetic INR- hold coumadin d/t bleeding( blood in urine) and decreasing h/ h - H/H remains 7.8/23 no further drop (8) Full code status Current Visit: Yes Status: Acute Code(s): Z78.9 - OTHER SPECIFIED HEALTH STATUS SNOMED Code(s): 742751637 Status and Disposition: Inpatient with hematuria and supratherapuetic INR abnd UTI. Most likely discharge to [place] tomorrow if H/H stable
[2017-09-20] MEDS: cefTRIAXone(*) 1 GM in NS 0.9% 50 ML* 50 ML IVPB SCH (15:35)
[2017-09-20] MEDS: Ferrous Sulfate TAB* 325 MG PO SCH (15:35)
[2017-09-20] MEDS: Docusate CAP* 100 MG PO SCH (20:42)
[2017-09-20] MEDS: Magnesium Hydroxide LIQ* 30 ML UDC PO PRN (20:43)
[2017-09-21] MEDS: Meclizine TAB* 12.5 MG PO SCH ×5 (01:26→18:03)
[2017-09-21] MEDS: Acetaminophen TAB* 325 MG PO PRN ×2 (05:56→21:30)
[2017-09-21] MEDS: fentaNYL Patch Check Q Shift 1 NOTE SCH (06:47)
[2017-09-21 06:49] LABS: ABS Basophils 0 10^3/ul (0-0.2); ABS Eosinophils 0.2 10^3/ul (0-0.6); ABS Lymphocytes 0.6 10^3/ul (1.0-4.8); ABS Monocytes 0.7 10^3/ul (0-0.8); ABS Neutrophils 3.7 10^3/ul (1.5-7.7); ABS Nucleated RBC 0 10^3/ul; Eosinophil % 3.2 % (0-6); Hematocrit 22 % (35-47); Hemoglobin 7.4 g/dl (12.0-16.0); Lymphocyte % 12.2 % (25-47); Mean Corpuscular HGB Conc 34 g/dl (31-36); Mean Corpuscular Hemoglobin 28 pg (27-31); Mean Corpuscular Volume 83 fL (80-97); Mean Platelet Volume 11.3 um3 (7.4-10.4); Nucleated Red Blood Cells % 0; Platelet Count 79 10^3/ul (150-450); Red Blood Count 2.69 10^6/ul (4.00-5.40); Red Cell Distribution Width 15 % (10.5-15); White Blood Count 5.3 10^3/ul (3.5-10.8)
[2017-09-21] MEDS: traMADol TAB* 50 MG PO SCH ×2 (07:50→21:30)
[2017-09-21] MEDS: Docusate CAP* 100 MG PO SCH ×2 (07:50→21:31)
[2017-09-21] MEDS: Ferrous Sulfate TAB* 325 MG PO SCH (07:50)
[2017-09-21] MEDS: Calcium/Vitamin D TAB 250/125* TAB PO SCH ×3 (07:51→21:30)
[2017-09-21] MEDS: Omeprazole CAP* 20 MG PO SCH (07:51)
[2017-09-21] MEDS: Carvedilol TAB* 3.125 MG PO SCH ×2 (07:55→21:30)
[2017-09-21] MEDS: amLODIPine TAB* 5 MG PO SCH (07:55)
--- NOTE | 2017-09-21 10:00 | PN ---
Subjective Date of Service: 09/21/17 Interval History: Patient seen and examined at bedside. Denies fever, shortness of breath, chest discomfort, N/V/D. Pt states that she has chills and urinary urgency. Per NSG no hematuria noted. Pt states that she has not been OOB since her admission and has generalized weakness. Family History: Unchanged from Admission Social History: Unchanged from Admission Past Medical History: Unchanged from Admission Objective Active Medications: Acetaminophen (Tylenol Tab*) 650 mg PO Q6H PRN Reason: FEVER/PAIN Amlodipine Besylate (Norvasc Tab*) 5 mg PO DAILY PIERCE Bisacodyl (Dulcolax Supp*) 10 mg ME DAILY PRN Reason: CONSTIPATION Calcium/Vitamin D (Oscal D Tab 250/125*) 1 tab PO TID PIERCE Carvedilol (Coreg Tab*) 3.125 mg PO BID PIERCE Docusate Sodium (Colace Cap*) 100 mg PO BID PIERCE Fentanyl (Duragesic Patch 12 Mcg/Hr *) 12 mcg TRANSDERM Q72H PIERCE Ferrous Sulfate (Ferrous Sulfate Tab*) 325 mg PO DAILY PIERCE Guaifenesin (Mucinex*) 600 mg PO BID PRN Reason: COUGH Hydralazine HCl (Apresoline Iv*) 5 mg IV SLOW PU Q6H PRN Reason: SYSTOLIC BP GREATER THAN: Ceftriaxone Sodium 1 gm/ (Sodium Chloride) 50 mls @ 200 mls/hr IVPB Q24H PIERCE Magnesium Hydroxide (Milk Of Magnesia Liq*) 30 ml PO Q4H PRN Reason: CONSTIPATION Meclizine HCl (Antivert Tab*) 12.5 mg PO Q6HR PIERCE Meclizine HCl (Antivert Tab*) 12.5 mg PO QAM PIERCE Omeprazole (Prilosec Cap*) 20 mg PO DAILY@0730 [facility] Ondansetron HCl (Zofran 40 Mg Vial*) 4 mg IV Q6H PRN Reason: NAUSEA Pharmacy Profile Note (Fentanyl Patch Check Q Shift) 1 note N/A 0700,1900 PIER[facility] Tramadol HCl (Ultram*) 50 mg PO Q12HR PIERCE Vital Signs - 8 hr 09/21/17 09/21/17 09/21/17 03:12 07:50 07:56 Temperature 97.6 F 98.2 F Pulse Rate 64 66 Respiratory 18 20 18 Rate Blood Pressure 122/64 123/66 (mmHg) O2 Sat by Pulse 99 94 Oximetry 09/21/17 08:00 Temperature Pulse Rate Respiratory 20 Rate Blood Pressure (mmHg) O2 Sat by Pulse Oximetry Oxygen Devices in Use Now: None Appearance: NAD, laying in bed Ears/Nose/Mouth/Throat: Mucous Membranes Moist Respiratory: Symmetrical Chest Expansion and Respiratory Effort, Clear to Auscultation Cardiovascular: NL Sounds; No Murmurs; No JVD, RRR Abdominal: NL Sounds; No Tenderness; No Distention Extremities: No Edema Neurological: Alert and Oriented x 3, NL Muscle Strength and Tone Lines/Tubes/Other Access: Clean, Dry and Intact Peripheral IV - site benign Nutrition: Taking PO's Result Diagrams: 09/21/17 06:31 09/20/17 09:47 Additional Lab and Data: . Microbiology and Other Data: Microbiology 09/16/17 18:00 Nasal Screen MRSA (PCR)(NEIDA) - Final Nasal Mrsa Not Detected Assess/Plan/Problems-Billing Assessment: Ms. Tellez is an 86 yo female from [place] with a PMH of DVT on coumadin, HTN, GERD, Dementia who presented with gross hematuria, flank/back pain and INR 8. - Patient Problems (1) UTI (urinary tract infection) Comment: - Afebrile and no leuokocytosis - Urine culture with e-coli, sensitive to ceftriaxone - Blood culture - no growth 3 day - Continue ceftriaxone, day 4/5 (2) Hematuria Code(s): R31.9 - HEMATURIA, UNSPECIFIED SNOMED Code(s): 10690363 Comment: - Resolved - H/H stable - Suspect secondary to supratherapuetic INR in the setting of UTI, INR is now therapuetic - Will hold coumadin for 1 week and patient should have this re-evaluated outpatient (3) Generalized weakness Code(s): R53.1 - WEAKNESS SNOMED Code(s): 15194592 Comment: - Suspect secondary to UTI and deconditioning - OT/PT consults pending (4) Anemia Code(s): D64.9 - ANEMIA, UNSPECIFIED SNOMED Code(s): 158597073 Comment: - History of GABO - Suspect now secondary to hematuria d/t supratherapeutic INR in the setting of UTI - INR back to baseline 1.89 09/19 - Stool occult was negative - Continue ferrous sulfate (5) Supratherapeutic INR Code(s): R79.1 - ABNORMAL COAGULATION PROFILE SNOMED Code(s): 692972206 Comment: - Last INR therapeutic - Continue to hold warfarin for at least 1 week, will need to be re-evaluated by PCP to determine need for continued anticoagulation (6) Chronic pain Code(s): G89.29 - OTHER CHRONIC PAIN SNOMED Code(s): 73307345 Comment: - Secondary to lumbar stenosis - Continue home Fentanyl and Tramadol prn (7) DVT (deep venous thrombosis) Code(s): I82.409 - ACUTE EMBOLISM AND THOMBOS UNSP DEEP VN UNSP LOWER EXTREMITY SNOMED Code(s): 109997475 Comment: - Unclear when she was dx with DVT of the lower leg - Pt is a poor historian and no records at [facility] to confirm - Per patient's family has been on coumadin for approx 25 years after having a DVT, family denied any knowledge of clotting disorders or recurrent DVT's. Grandson Jin stated that patient has not had a DVT within the last 10 years while he was caring for her and has no known history heart disease or irregular heart beat. - Plan to hold coumadin per above (8) HTN (hypertension) Code(s): I10 - ESSENTIAL (PRIMARY) HYPERTENSION SNOMED Code(s): 40926741 Comment: - Normotensive, SBO 100-130's - Continue coreg and norvasc (9) Dementia Code(s): F03.90 - UNSPECIFIED DEMENTIA WITHOUT BEHAVIORAL DISTURBANCE SNOMED Code(s): 21080678 Comment: - Supportive treatment (10) DVT prophylaxis Code(s): JAP9092 - SNOMED Code(s): 105761262 Comment: - Therapuetic INR, continue to hold coumadin d/t hematuria and anemia - SCDs (11) Full code status Code(s): Z78.9 - OTHER SPECIFIED HEALTH STATUS SNOMED Code(s): 580927081 Status and Disposition: Inpatient with hematuria and supratherapuetic INR abnd UTI. Most likely discharge to [place] tomorrow if H/H stable.
[2017-09-21] MEDS: cefTRIAXone(*) 1 GM in NS 0.9% 50 ML* 50 ML IVPB SCH (15:21)
[2017-09-22] MEDS: fentaNYL Patch Check Q Shift 1 NOTE SCH ×2 (01:29→07:52)
[2017-09-22] MEDS: Meclizine TAB* 12.5 MG PO SCH ×4 (01:39→12:34)
[2017-09-22] MEDS: Omeprazole CAP* 20 MG PO SCH (06:25)
--- NOTE | 2017-09-22 09:31 | PN ---
Subjective Date of Service: 09/22/17 Interval History: Patient seen and examined at bedside. Denies fever, shortness of breath, chest discomfort, N/V/D. Pt states that she is cold. Family History: Unchanged from Admission Social History: Unchanged from Admission Past Medical History: Unchanged from Admission Objective Active Medications: Acetaminophen (Tylenol Tab*) 650 mg PO Q6H PRN Reason: FEVER/PAIN Amlodipine Besylate (Norvasc Tab*) 5 mg PO DAILY PIERCE Bisacodyl (Dulcolax Supp*) 10 mg SD DAILY PRN Reason: CONSTIPATION Calcium/Vitamin D (Oscal D Tab 250/125*) 1 tab PO TID PIERCE Carvedilol (Coreg Tab*) 3.125 mg PO BID PIERCE Docusate Sodium (Colace Cap*) 100 mg PO BID PIERCE Fentanyl (Duragesic Patch 12 Mcg/Hr *) 12 mcg TRANSDERM Q72H PIERCE Ferrous Sulfate (Ferrous Sulfate Tab*) 325 mg PO DAILY PIERCE Guaifenesin (Mucinex*) 600 mg PO BID PRN Reason: COUGH Hydralazine HCl (Apresoline Iv*) 5 mg IV SLOW PU Q6H PRN Reason: SYSTOLIC BP GREATER THAN: Magnesium Hydroxide (Milk Of Magnesia Liq*) 30 ml PO Q4H PRN Reason: CONSTIPATION Meclizine HCl (Antivert Tab*) 12.5 mg PO Q6HR PIERCE Meclizine HCl (Antivert Tab*) 12.5 mg PO QAM PIERCE Omeprazole (Prilosec Cap*) 20 mg PO DAILY@0730 [facility] Ondansetron HCl (Zofran 40 Mg Vial*) 4 mg IV Q6H PRN Reason: NAUSEA Pharmacy Profile Note (Fentanyl Patch Check Q Shift) 1 note N/A 0700,1900 PIERCE Tramadol HCl (Ultram*) 50 mg PO Q12HR [facility] Vital Signs - 8 hr 09/22/17 09/22/17 09/22/17 01:29 03:24 07:14 Temperature 97.5 F 98.0 F Pulse Rate 62 63 Respiratory 16 16 18 Rate Blood Pressure 116/61 137/55 (mmHg) O2 Sat by Pulse 96 98 Oximetry Oxygen Devices in Use Now: None Appearance: NAD, sitting up in bed Ears/Nose/Mouth/Throat: Mucous Membranes Moist Respiratory: Symmetrical Chest Expansion and Respiratory Effort, Clear to Auscultation Cardiovascular: NL Sounds; No Murmurs; No JVD, RRR Abdominal: NL Sounds; No Tenderness; No Distention Extremities: No Edema Skin: No Rash or Ulcers Neurological: NL Muscle Strength and Tone, - - Alert and Oriented to Person and Place, Pt states that it is 2016 Lines/Tubes/Other Access: Clean, Dry and Intact Peripheral IV - site benign Nutrition: Taking PO's Result Diagrams: 09/21/17 06:31 09/20/17 09:47 Additional Lab and Data: . Microbiology and Other Data: Microbiology 09/16/17 18:00 Nasal Screen MRSA (PCR)(NEIDA) - Final Nasal Mrsa Not Detected Assess/Plan/Problems-Billing Assessment: Ms. Tellez is an 86 yo female from [place] with a PMH of DVT on coumadin, HTN, GERD, Dementia who presented with gross hematuria, flank/back pain and INR 8. - Patient Problems (1) UTI (urinary tract infection) Comment: - Afebrile and no leuokocytosis - Urine culture with e-coli, sensitive to ceftriaxone - Blood culture - no growth 3 day - Completed 5 day course of ceftriaxone (2) Hematuria Code(s): R31.9 - HEMATURIA, UNSPECIFIED SNOMED Code(s): 64412897 Comment: - Resolved - H/H stable - Suspect secondary to supratherapuetic INR in the setting of UTI, INR is now therapuetic - Will hold coumadin for 1 week and patient should have this re-evaluated outpatient (3) Generalized weakness Code(s): R53.1 - WEAKNESS SNOMED Code(s): 66050416 Comment: - Suspect secondary to UTI and deconditioning - OT/PT consults, Pt requires continued services (4) Anemia Code(s): D64.9 - ANEMIA, UNSPECIFIED SNOMED Code(s): 572692766 Comment: - History of GABO - Suspect now secondary to hematuria d/t supratherapeutic INR in the setting of UTI - INR back to baseline 1.89 09/19 - Stool occult was negative - Continue ferrous sulfate (5) Supratherapeutic INR Code(s): R79.1 - ABNORMAL COAGULATION PROFILE SNOMED Code(s): 819209866 Comment: - Last INR therapeutic - Continue to hold warfarin for at least 1 week, will need to be re-evaluated by PCP to determine need for continued anticoagulation (6) Chronic pain Code(s): G89.29 - OTHER CHRONIC PAIN SNOMED Code(s): 04810287 Comment: - Secondary to lumbar stenosis - Continue home Fentanyl and Tramadol prn (7) DVT (deep venous thrombosis) Code(s): I82.409 - ACUTE EMBOLISM AND THOMBOS UNSP DEEP VN UNSP LOWER EXTREMITY SNOMED Code(s): 446737072 Comment: - Unclear when she was dx with DVT of the lower leg - Pt is a poor historian and [place] records [place] [facility] [place] confirm - Per patient's family has been on coumadin for approx 25 years after having a DVT, family denied any knowledge of clotting disorders or recurrent DVT's. Grandson Jin stated that patient has not had a DVT within the last 10 years while he was caring for her and has no known history heart disease or irregular heart beat. - Plan to hold coumadin per above (8) HTN (hypertension) Code(s): I10 - ESSENTIAL (PRIMARY) HYPERTENSION SNOMED Code(s): 51157438 Comment: - Normotensive, SBP 100-130's - Continue coreg and norvasc (9) Dementia Code(s): F03.90 - UNSPECIFIED DEMENTIA WITHOUT BEHAVIORAL DISTURBANCE SNOMED Code(s): 80210603 Comment: - Supportive treatment (10) DVT prophylaxis Code(s): VMB4826 - SNOMED Code(s): 565043652 Comment: - Therapuetic INR, continue to hold coumadin d/t hematuria and anemia - SCDs (11) Full code status Code(s): Z78.9 - OTHER SPECIFIED HEALTH STATUS SNOMED Code(s): 738748051 Status and Disposition: Inpatient with hematuria and supratherapuetic INR abnd UTI. stable for discharge to [facility] today.
[2017-09-22] MEDS: Carvedilol TAB* 3.125 MG PO SCH (09:58)
[2017-09-22] MEDS: Calcium/Vitamin D TAB 250/125* TAB PO SCH (09:59)
[2017-09-22] MEDS: Docusate CAP* 100 MG PO SCH (09:59)
[2017-09-22] MEDS: Ferrous Sulfate TAB* 325 MG PO SCH (09:59)
[2017-09-22] MEDS: amLODIPine TAB* 5 MG PO SCH (09:59)
[2017-09-22] MEDS: traMADol TAB* 50 MG PO SCH (10:00)
--- NOTE | 2017-09-22 11:15 | DS ---
Cc: [facility]; Irene Morton NP * DISCHARGE SUMMARY: DATE OF ADMISSION: 09/16/17 DATE OF DISCHARGE: 09/22/17 ATTENDING PHYSICIAN: Yue Dickerson DO * (dictated by Foster Colin NP). PRIMARY CARE PROVIDER: Irene Morton NP. PRIMARY DIAGNOSES: 1. Hematuria, suspect supratherapeutic INR in the setting of urinary tract infection. 2. E. coli urinary tract infection. 3. Generalized weakness secondary to urinary tract infection and deconditioning. 4. Anemia, unclear what the patient's baseline is, but she does have a history of iron deficiency anemia. SECONDARY DIAGNOSES: 1. Chronic pain. 2. Remote history of deep vein thrombosis, approximately 25 years ago. 3. Hypertension. 4. Dementia. STUDIES WHILE IN THE HOSPITAL: 1. Abdomen pelvis CT on 09/16/17. Radiologist's impression: Left nephrolysis including staghorn calculi of the upper pole of the left kidney. There is a 0.2 cm calculus of the right UVJ without appreciable hydronephrosis. Status post aortic stent graft. Diverticulosis. 2. Right hip and pelvis x-ray on 09/17/17. Radiologist's impression: Osteopenia. Osteoarthritis. Status post right hip arthroplasty. Peripheral arterial disease. No acute osseous injury. The degree of osteopenia may make a nondisplaced fracture radiographically occlude. If systems persist, recommend repeat imaging. DISCHARGE MEDICATIONS: New home medications: 1. Ferrous sulfate 325 mg oral daily. 2. Milk of magnesia 30 mL oral every 6 hours as needed for constipation. 3. Acetaminophen 650 mg oral every 6 hours as needed fever or pain. 4. Colace 100 mg oral twice daily as needed for constipation. Continued home medications: 1. Tramadol 50 mg oral every 6 hours as needed for pain. 2. Guaifenesin 600 mg oral twice daily as needed for cough. 3. Fentanyl patch 12 mcg transdermal every 72 hours. 4. Calcium carbonate vitamin D 1 tablet oral 3 times daily. 5. Zinc oxide 13% topical twice daily as needed for rash. 6. Carvedilol 3.125 mg oral twice daily. 7. Protonix 40 mg oral daily. 8. Amlodipine 5 mg oral daily. 9. Meclizine 12.5 mg every morning. 10. Meclizine 12.5 mg oral every 6 hours as needed for dizziness. Discontinued home medication: 1. Warfarin. HISTORY OF PRESENT ILLNESS/HOSPITAL COURSE: Ms. Tellez is an 86-year-old female with past medical history significant for dementia, remote history of DVT , vertigo, hypertension, chronic pain, GERD who presented to the emergency room with altered mental status on top of her baseline dementia from [facility]. The patient was complaining of the excruciating right flank pain, which decreased prior to arrival to the emergency room. The patient was sent from [place] due to hematuria that they noted the morning of her presentation. The patient denied having anything like that in the past. While in the emergency room, the patient was found to have an INR of 8 in the setting of bleeding, she received vitamin K. The patient also had an abdomen and pelvis CT showing diverticulosis and renal calculi on the right with no hydronephrosis. The hospitalist were asked to evaluate the patient for admission. During her hospitalization, her hematuria resolved. She also was found to have an E. coli urinary tract infection which she received 5 days of IV ceftriaxone for. During her stay, she did not have any leukocytosis. She remained afebrile. She was doing well but was felt to be deconditioned. Her INR eventually normalized. It was felt in the setting of her hematuria that it should at least be held for 1 week but also should be reevaluated whether or not the patient needs to be on warfarin for reported DVT 25 years prior. The patient was seen by Occupational and Physical Therapy and was felt to have rehab needs. Ms. Tellez is stable for discharge to [facility] today. Vital signs are as follows: Temperature 98.0, heart rate 63, respiratory rate 18, O2 saturation 98% on room air, blood pressure 137/55. DISCHARGE PLAN: The patient will be discharged to [facility] today. Activity as tolerated. She should be on a heart-healthy, regular consistency diet. 1. In regards to her urinary tract infection, she has completed a 5-day course of IV ceftriaxone. In regards to her hematuria, this has resolved. Her Coumadin should be held for 1 week and then be reevaluated for her need for continued warfarin. In regards to her generalized weakness, I suspect this is secondary to her urinary tract infection and deconditioning. She should have physical therapy and occupational therapy evaluations and treatment per their recommendations. The patient has a history of iron deficiency anemia. She should be continued on ferrous sulfate. 2. Chronic pain. The patient should be continued on her fentanyl patch and tramadol as needed. 3. In regards to her history of DVT, this reportedly was 25 years ago and the patient's family had no knowledge of DVT within the last 10 years. I recommend holding her warfarin but this can be reassessed in a week by her primary care team. 4. In regards to her hypertension, she has been normotensive. Continue her Coreg and Norvasc. I have discontinued her losartan. 5. For her dementia, continue supportive care. She should be seen in followup by a provider at [facility] [place] within a week and should be referred back to her primary care provider Irene Morton after she is discharged from [facility] [place]. This is a summarized report of a complex medical history and hospital stay. For further details, please see the entire medical record. TIME SPENT: Time for this discharge was approximately 50 minutes, greater than half of that was spent with the patient discussing discharge plan and instructions. CONDITION ON DISCHARGE: Stable. FOSTER HILLIARD NP [id number]/[facility] #: [id number] DEMARIO
[2017-09-22 11:42] VITALS: BP 114/67
== END 2017-09-22 14:15 | DRG 690 ==
LOC: ED 11:41 → MED 16:32
PROVIDERS: ADMIT Internal Medicine; ATTEND Internal Medicine
PROC: 30233K1 Transfusion of Nonautologous Frozen Plasma into Peripheral Vein, Percutaneous Approach (ICD-10-PCS; principal; 2017-09-16)
DX: N39.0 Urinary tract infection, site not specified (principal); N17.9 Acute kidney failure, unspecified; I10 Essential (primary) hypertension; G89.29 Other chronic pain; K21.9 Gastro-esophageal reflux disease without esophagitis; F32.9 Major depressive disorder, single episode, unspecified; M48.061 Spinal stenosis, lumbar region without neurogenic claudication; Z96.641 Presence of right artificial hip joint; F03.90 Unspecified dementia, unspecified severity, without behavioral disturbance, psychotic disturbance, mood disturbance, and anxiety; Z66 Do not resuscitate; N20.0 Calculus of kidney; R31.0 Gross hematuria; B96.20 Unspecified Escherichia coli [E. coli] as the cause of diseases classified elsewhere; K57.90 Diverticulosis of intestine, part unspecified, without perforation or abscess without bleeding; R79.1 Abnormal coagulation profile; M85.88 Other specified disorders of bone density and structure, other site; I73.9 Peripheral vascular disease, unspecified; D50.9 Iron deficiency anemia, unspecified; R42 Dizziness and giddiness; Z82.49 Family history of ischemic heart disease and other diseases of the circulatory system; Z86.718 Personal history of other venous thrombosis and embolism
CPT/HCPCS: 36415; 74176; 80048; 80053; 81003; 81015; 82272; 85014; 85018; 85025; 85027; 85049; 85060; 85610; 86900; 86901; 86927; 87040; 87077; 87086; 87186; 87641; 99284; A9270-GY; G8978-GP-CM; G8979-GP-CK; G8980-GP-CJ; G8981-GP-CL; G8982-GP-CI; G8983-GP-CI; J0696; J1885; J3430; P9017

== ENCOUNTER 2018-07-19 12:32 | Inpatient (IN) | payer MEDICARE ==
[2018-07-19] MEDS ORDERED: NS 0.9% 1000 ML** 1,000 ML IV ONE (12:55)
--- NOTE | 2018-07-19 12:59 | ED ---
Complex/Multi-Sys Presentation - HPI Summary HPI Summary: An 87 y/o female brought in by [facility] ambulance presents to [facility] with a chief complaint of a "critical lab per EMS". She is dehydrated and weak. She also has slurred speech. - History Of Current Complaint Time Seen by Provider: 07/19/18 12:47 Hx Obtained From: Patient, EMS Onset/Duration: Sudden Onset, Lasting Hours, Still Present Timing: Constant, Hours Severity Currently: Moderate Severity Initially: Moderate Character: Unable To Describe Aggravating Factor(s): nothing Alleviating Factor(s): nothing Associated Signs And Symptoms: Positive: Weakness, Other - dehydrated, slurred speech - Allergies/Home Medications Allergies/Adverse Reactions: Allergies Allergy/AdvReac Type Severity Reaction Status Date / Time lactose Allergy Unknown Verified 07/19/18 13:15 Reaction Details oxycodone Allergy Unknown Verified 07/19/18 13:15 Reaction Details tamsulosin [From Flomax] Allergy Unknown Verified 07/19/18 13:15 Reaction Details slidenafil Allergy Unknown Uncoded 07/19/18 13:15 Reaction Details Home Medications: Home Medications Gabapentin CAP(*) [Neurontin 100 mg CAP(*)] 100 mg PO BID 07/19/18 [History Confirmed 07/19/18] Levofloxacin TAB* [Levaquin TAB*] 500 mg PO DAILY 07/19/18 [History Confirmed ] Omeprazole CAP (NF) [Prilosec CAP* 20 MG] 20 mg PO DAILY 07/19/18 [History Confirmed 07/19/18] Phytonadione SUBCUT/IM Adult* [Vitamin K1 SUBCUT/IM Adult*] 10 mg IM ONCE [History Confirmed 07/19/18] Sertraline* [Zoloft*] 50 mg PO DAILY 07/19/18 [History Confirmed 07/19/18] PMH/Surg Hx/FS Hx/Imm Hx Endocrine/Hematology History: Reports: Hx Anemia Denies: Hx Diabetes Cardiovascular History: Reports: Hx Deep Vein Thrombosis, Hx Hypertension Respiratory History: Denies: Hx Chronic Obstructive Pulmonary Disease (COPD) GI History: Reports: Hx Gastroesophageal Reflux Disease History: Denies: Hx Dialysis Musculoskeletal History: Reports: Hx Arthritis Sensory History: Reports: Hx Contacts or Glasses - reading glasses, not with her Denies: Hx Hearing Aid Opthamlomology History: Reports: Hx Contacts or Glasses - reading glasses, not with her Neurological History: Reports: Hx Dementia Denies: Hx Seizures Psychiatric History: Reports: Hx Depression - Family History Known Family History: Negative: Diabetes - Social History Alcohol Use: None Substance Use Type: Reports: None Smoking Status (MU): Never Smoked Tobacco Review of Systems Negative: Fever Positive: Weakness, Slurred Speech All Other Systems Reviewed And Are Negative: Yes Physical Exam - Summary Physical Exam Summary: Appearance: The patient is well-nourished in no acute distress and in no acute pain. Skin: The skin tents. HEENT: The head is normocephalic and atraumatic. The pupils are equal and reactive. The conjunctivae are clear and without drainage. Nares are patent and without drainage. Mouth reveals dry mucous membranes and the throat is without erythema and exudate. The external ears are intact. The ear canals are patent and without drainage. The tympanic membranes are intact. Neck: The neck is supple with full range of motion and non-tender. There are no carotid bruits. There is no neck vein distension. Respiratory: Chest is non-tender. Lungs are clear to auscultation and breath sounds are symmetrical and equal. Cardiovascular: Heart is regular rate and rhythm. There is no murmur or rub auscultated. There is no peripheral edema and pulses are symmetrical and equal. Abdomen: The abdomen is soft and non-tender. There are normal bowel sounds heard in all four quadrants and there is no organomegaly palpated. Musculoskeletal: There is no back tenderness noted. Extremities are non-tender with full range of motion. There is good capillary refill. There is no peripheral edema or calf tenderness elicited. Neurological: Patient is alert and oriented to person, place and time. Patient has slurred speech, is weak, and moves all extremities but only poorly. Psychiatric: The patient has an appropriate affect and does not exhibit any anxiety or depression. Triage Information Reviewed: Yes Vital Signs Reviewed: Yes Diagnostics - Laboratory Result Diagrams: 07/19/18 13:52 07/19/18 13:52 Lab Statement: Any lab studies that have been ordered have been reviewed, and results considered in the medical decision making process. - Radiology CXR Radiology Interpretation Completed By: Radiologist Summary of Radiographic Findings: LOW LUNG VOLUMES. NO ACTIVE CARDIOPULMONARY DISEASE. ED physician has reviewed this imaging report. - EKG 13:00 Cardiac Rate: NL - 97 bpm EKG Rhythm: Sinus Rhythm Summary of EKG Findings: NSR at 97 bpm, LVH criteria, probable old inferior infarct, no previous EKGs to compare to Complex Multi-Symp Course/Dx Course Of Treatment: Ms. Tellez was sent in from the group home. Apparently she's been weak and labs were obtained yesterday. They were noted to be markedly abnormal and she was sent to the ED. She is unable to give any history. Clinically she was clearly dehydrated on arrival however her vital signs were normal. Her labs returned with a leukocytosis. She was being treated with normal saline at that point and did not meet septic criteria. Ultimately her urine did return looking grossly infected. The hospitalist service was contacted immediately on evaluation of the patient and they responded quickly and were managing the patient by the time her urine returned. - Diagnoses Provider Diagnoses: UTI (urinary tract infection), Severe dehydration - Physician Notifications Discussed Care Of Patient With: Sue Feng Time Discussed With Above Provider: 13:00 Instructed by Provider To: Admit As Inpatient - Critical Care Time Critical Care Time: 30-74 min Discharge - Sign-Out/Discharge Documenting (check all that apply): Patient Departure - admit Patient Received Moderate/Deep Sedation with Procedure: No - Discharge Plan Condition: Fair Disposition: ADMITTED TO [facility] - Billing Disposition and Condition Condition: FAIR Disposition: Admitted to [facility] - Attestation Statements Document Initiated by Sabrina: Yes Documenting Scribe: Otilio Little Provider For Whom Sabrina is Documenting (Include Credential): Kaushik Brizuela MD Scribe Attestation: IOtilio, scribed for Kaushik Brizuela MD on 07/19/18 at 1636. Scribe Documentation Reviewed: Yes Provider Attestation: The documentation as recorded by the Otilio avilez accurately reflects the service I personally performed and the decisions made by me, Kaushik Brizuela MD Status of Scribe Document: Viewed
[2018-07-19] MEDS ORDERED: Acetaminophen TAB* 325 MG PO PRN (13:32)
[2018-07-19] MEDS ORDERED: PROCHLORPERAZINE INJ 5 MG/ML 2 ML VIAL IV PRN (13:34)
[2018-07-19] MEDS ORDERED: cefTRIAXone(*) 1 GM in NS 0.9% 50 ML* 50 ML IVPB ONE (13:40)
[2018-07-19 14:06] LABS: Hematocrit 45 % (33-41); Hemoglobin 14.4 g/dL (12.0-16.0); Mean Corpuscular HGB Conc 32 g/dL (31-36); Mean Corpuscular Hemoglobin 27 pg (27-31); Mean Corpuscular Volume 83 fL (80-97); Mean Platelet Volume 11.4 fL (7.4-10.4); Platelet Count 178 10^3/uL (150-450); Red Blood Count 5.42 10^6 /uL (3.70-4.87); Red Cell Distribution Width 16 % (10.5-15); White Blood Count 16.8 10^3/uL (3.5-10.8)
[2018-07-19 14:18] LABS: Urine Appearance Turbid; Urine Bacteria 3+ (Absent); Urine Bilirubin Negative (Negative); Urine Blood 3+ (Negative); Urine Color Amber; Urine Glucose Negative (Negative); Urine Ketones Negative (Negative); Urine Nitrite Positive (Negative); Urine Protein 2+(100 mg/dL) (Negative); Urine Red Blood Cell 3+(>10/hpf) (Absent); Urine Specific Gravity 1.018 (1.010-1.030); Urine Squamous Epithelial Cell Present (Absent); Urine Urobilinogen Negative (Negative); Urine White Blood Cell 1+(6-10/hpf) (Absent)
[2018-07-19 14:28] LABS: INR 5.6 (0.77-1.02)
[2018-07-19 14:29] LABS: Albumin 2.9 g/dL (3.2-5.2); Albumin/Globulin Ratio 0.7 (1-3); BUN/Creatinine Ratio 53.7 (8-20); C Reactive Protein 143.05 mg/L (<8.01); Calcium 9.6 mg/dL (8.6-10.3); EGFR African American 28.2 (>60); EGFR Non-African American 23.3 (>60); Globulin 4.3 g/dL (2-4); Magnesium 2.8 mg/dL (1.9-2.7); Potassium 3.2 mmol/L (3.5-5.0); Total Bilirubin 0.8 mg/dL (0.2-1.0); Total Protein 7.2 g/dL (6.4-8.9)
[2018-07-19] MEDS ORDERED: fentaNYL PATCH 12 MCG/HR TRANSDERM SCH (14:30)
[2018-07-19 14:33] LABS: Troponin I 0.05 ng/mL (<0.04)
[2018-07-19 14:50] LABS: TSH (Thyroid Stimulating Horm) 1.14 mcIU/mL (0.34-5.60)
[2018-07-19 15:00] LABS: ABS Basophils 0.1 10^3/ul (0-0.2); ABS Eosinophils 0 10^3/ul (0-0.6); ABS Lymphocytes 0.7 10^3/ul (1.0-4.8); ABS Monocytes 2.2 10^3/ul (0-0.8); ABS Neutrophils 13.8 10^3/ul (1.5-7.7); ABS Nucleated RBC 0 10^3/ul; Eosinophil % 0.1 %; Lymphocyte % 4.3 %; Nucleated Red Blood Cells % 0
--- NOTE | 2018-07-19 15:06 | HP ---
CONTINUATION ADDENDUM NOW INCLUDED ON THIS REPORT CC: Dr. Calista Carrillo, [facility] * HISTORY AND PHYSICAL: DATE OF ADMISSION: 07/19/18 PRIMARY CARE PROVIDER: Dr. Calista Carrillo, [facility] CHIEF COMPLAINT: "Abnormal labs" as per EMS. HISTORY OF PRESENT ILLNESS: Please note that the patient is unable to provide any meaningful history at this time, so the whole information is obtained from her records from [facility] and at [facility]. Ms. Tellez is an 87-year-old lady with a past medical history of depression, dementia, DVT/PE, on chronic anticoagulation with Coumadin, chronic back pain, iron deficiency anemia, hypertension, constipation, GERD, prior history of UTI, who was sent to the emergency room due to abnormal labs. Going back on her nursing notes from [facility] on 07/15/18 afternoon, the patient was complaining of abdominal pain. Her abdomen was described as soft, tender with palpation and hyperactive bowel sounds. It was described that the patient appeared to be ill, flushed and stated that she was unable to get out of bed. As per this nurse note, the patient usually walks independently. Nurse practitioner was notified and ordered a KUB study, increased fluids and recommended monitoring the patient for changes. As per note, the pain was described as a 7-8/10 as sharp, but no location other than just abdomen. The next day, the patient was documented as spending the day in bed, refused meals and they were waiting for her KUB result. She was noted to be more confused than normal. She was pocketing food in her mouth during breakfast. Denied pain at that time and was drinking a little bit of fluids. The staff continued to encourage p.o. fluid intake and at that point, she required a Bello lift to be transferred to a wheelchair. On 07/17/18, the patient was drinking Ensure, had eaten some bites of mashed potatoes. Denied nausea, vomiting, pain, or discomfort. The only complaint at that time was that she was feeling tired. Lab results were received including a critical INR of 9.6 and the patient received 10 mg of vitamin K IM x1. Levofloxacin 500 mg p.o. daily for 7 days was also started due to CBC results, but the note does not explain exactly what infection was being treated. At that point, the daughter was notified and she did not request the patient be sent to [facility], she just wanted urine test to be done. It is not clear what other events prompted her to come to the emergency room as the next note is already today and states the labs were sent to [facility]. In the emergency room, the patient is confused. She knows her name, but when I asked her [place] She denies pain at this time. Also, no nausea or vomiting. PAST MEDICAL HISTORY: 1. Depression. 2. Dementia. 3. History of DVT/PE, on chronic anticoagulation with Coumadin. 4. Chronic back pain. 5. Iron deficiency anemia. 6. Hypertension. 7. Constipation. 8. GERD. 9. Prior history of urinary tract infection. PAST SURGICAL HISTORY: 1. Left hip fracture, status post ORIF. 2. Status post right hip total arthroplasty. 3. Status post aortic stent graft. ALLERGIES: As per [facility] records, the patient is allergic to OXYCODONE, LACTOSE, FLOMAX, and SILDENAFIL. SOCIAL HISTORY: As per records, there is no history of tobacco, alcohol, or drug use. She used to work in payroll at the [employer] She is , has 2 children, lives at [facility], and surrogate decision maker is her daughter , Laura Telelz, phone number is [phone]. REVIEW OF SYSTEMS: I am unable to obtain from the patient due to her confusion. PHYSICAL EXAMINATION GENERAL: The patient is an elderly lady, lying on ED stretcher, in no acute distress. VITAL SIGNS: Temperature 99.8, heart rate is 92, respiratory rate is 20, oxygen saturation 95% on room air, blood pressure is 135/95. HEENT: Pupils are equal, very dry mucous membranes. CHEST: Breath sounds bilaterally with no added sounds. CVS: Normal S1, S2. Regular rate and rhythm. ABDOMEN: Soft with mild diffuse tenderness, but no guarding, no rebound. Bowel sounds are present. I do not appreciate any hernias. NEURO: She is alert, awake and oriented x1 to self only. She is able to move all 4 extremities and follow simple commands. CONTINUATION ADDENDUM: LABORATORY AND IMAGING DATA: The patient had a CBC that showed WBC 16.8, hemoglobin 14.4, hematocrit 45, platelets of 178 with 82% neutrophils. INR was 5.6. Chemistry showed a sodium of 155, potassium 3.2, chloride 122, bicarb of 23, BUN of 109, creatinine of 2.03, glucose of 132. Lactic acid is 1.4, calcium is 9.6, magnesium is 2.8. LFTs showed a total bilirubin 0.8, AST of 56 , ALT of 55, alk phos 162, first troponin is 0.05, CRP is 143, lipase is 20, TSH is 1.14. Urinalysis shows 2+ protein, 3+ blood, nitrite is positive, LE is 1+, wbc 1+, rbc 3+, squamous epithelial cells, 3+ bacteria, hyaline casts are present. Chest x-ray showed low lung volume, no active cardiopulmonary disease and I agree with this reading. There is also no under-diaphragmatic free air. EKG shows sinus rhythm at 97 beats per minute with ST depressions in II and with signs of LVH. There is no prior EKG to compare. ASSESSMENT AND PLAN: Mrs. Tellez is an 87-year-old group home resident with a past medical history of depression; dementia; deep vein thrombosis/ pulmonary embolism, on anticoagulation with Coumadin; chronic back pain; iron deficiency anemia; hypertension; constipation; gastroesophageal reflux disease; prior history of urinary tract infection, who presents to the emergency room due to abnormal labs. 1. Sepsis. The patient meets sepsis criteria with tachycardia and leukocytosis. Source may be her urine since her UA is abnormal, but she also had reports of abdominal pain and poor oral intake at the group home. Her LFTs are slightly elevated and this could represent biliary source. The patient received IV fluids in the emergency room and we will continue hydration. She will be started on ceftriaxone and metronidazole for now to cover both sources and we will follow urine culture results. Blood cultures were not sent in the emergency department and I am going to requests them now. 2. Hypernatremia. The patient appears to be severely dehydrated with a sodium of 155. She received 1 L normal saline in the emergency room and I am going to give her another liter of LR at this time, then continue LR at 100 mL an hour and repeat her sodium level later tonight. 3. Acute kidney injury. The patient's creatinine is 2 and her creatinine in April was 1. I suspect this is prerenal in nature and it should respond to IV hydration. With her urinary tract infection, I will also check a renal ultrasound. 4. Hypokalemia, we will replete. 5. Troponin elevation. This is probably secondary to demand ischemia in the setting of sepsis. She will be monitored on telemetry and we will check serial troponins. 6. Supratherapeutic INR in the setting of poor oral intake and quinolone use as outpatient. Her INR was 9.6 on 07/18/18 and is now down to 5.6. There are no signs of active bleeding. I am just going to hold her warfarin for now and let her INR drift down. When it is less than 3, we should be able to resume her warfarin and monitor her INR closely. 7. DVT prophylaxis. The patient has a score of 6 on DVT Prophylaxis Risk Assessment Guide and she is already anticoagulated with warfarin. She will have SCDs while in bed. 8. Code status. The patient has a MOLST form from [facility], that documents she is a [id number]. I did call the patient's daughter Laura Tellez at [phone] and left a message asking her to call me back. TIME SPENT: Approximately 65 minutes was spent with the medical record review, patient's physical examination to complete this admission; more than half of this time was spent [id number] with the patient and coordination of care. [id number]/[facility] #: [id number] [id number]/CPS #: [id number] DEMARIO
[2018-07-19] MEDS ORDERED: Lactated Ringers 1000 ML Bag* 1,000 ML IV SCH (16:00)
[2018-07-19] MEDS: Lactated Ringers 1000 ML Bag* 1,000 ML IV SCH ×2 (16:06→17:24)
[2018-07-19] MEDS: metroNIDAZOLE IV 500 MG/100ML* 500 MG/100 ML BAG IVPB SCH (17:26)
[2018-07-19] MEDS: KCL 10 MEQ/50 ML IVPREMIX* 10 MEQ/50 ML BAG IV SCH ×3 (18:24→20:36)
[2018-07-19] MEDS: fentaNYL Patch Check Q Shift 1 NOTE FOLLOW UP SCH (18:31)
--- NOTE | 2018-07-19 19:03 | HP ---
CC: Dr. Calista Carrillo at [facility] HISTORY AND PHYSICAL: ADDENDUM: PRIMARY CARE PROVIDER: Dr. Calista Carrillo at [facility]. LABORATORY AND IMAGING DATA: The patient had a CBC that showed WBC of 16.8, hemoglobin of 14.4, hematocrit of 45, platelets of 178 with 82% neutrophils. INR was 5.6. Chemistry showed a sodium of 155, potassium 3.2, chloride 122, bicarb of 23, BUN of 109, creatinine of 2.03, glucose of 132. Lactic acid is 1.4, calcium is 9.6, magnesium is 2.8. LFTs showed a total bilirubin 0.8, AST of 56, ALT of 55, alk phos 162, first troponin is 0.05, CRP is 143, lipase is 20 , TSH is 1.14. Urinalysis shows 2+ protein, 3+ blood, nitrite is positive, LE is 1+, wbc 1+, rbc 3+, squamous epithelial cells, 3+ bacteria, hyaline casts are present. Chest x-ray showed low lung volume, no active cardiopulmonary disease and I agree with this reading. There is also no under-diaphragmatic free air. EKG shows sinus rhythm at 97 beats per minute with ST depressions in II and with signs of LVH. There is no prior EKG to compare. ASSESSMENT AND PLAN: Mrs. Tellez is an 87-[facility]-old [facility] resident with a past medical history of depression; dementia; deep vein thrombosis/ pulmonary embolism, on anticoagulation with Coumadin; chronic back pain; iron deficiency anemia; hypertension; constipation; gastroesophageal reflux disease; prior history of urinary tract infection, who presents to the emergency room due to abnormal labs. 1. Sepsis. The patient meets sepsis criteria with tachycardia and leukocytosis. Source may be her urine since her UA is abnormal, but she also had reports of abdominal pain and [facility]. Her LFTs are slightly elevated and this could represent biliary source. The patient received IV fluids in the emergency room and we will continue hydration. She will be started on ceftriaxone and metronidazole for now to cover both sources and we will follow urine culture results. Blood cultures were not sent in the emergency department and I am going to requests them now. 2. Hypernatremia. The patient appears to be severely dehydrated with a sodium of 155. She received 1 L normal saline in the emergency room and I am going to give her another liter of LR at this time, then continue LR at 100 mL an hour and repeat her sodium level later tonight. 3. Acute kidney injury. The patient's creatinine is 2 and her creatinine in April was 1. I suspect this is prerenal in nature and it should respond to IV hydration. With her urinary tract infection, I will also check a renal ultrasound. 4. Hypokalemia, we will replete. 5. Troponin elevation. This is probably secondary to demand ischemia in the setting of sepsis. She will be monitored on telemetry and we will check serial troponins. 6. Supratherapeutic INR in the setting of poor oral intake and quinolone use as outpatient. Her INR was 9.6 on 07/18/18 and is now down to 5.6. There are no signs of active bleeding. I am just going to hold her warfarin for now and let her INR drift down. When it is less than 3, we should be able to resume her warfarin and monitor her INR closely. 7. DVT prophylaxis. The patient has a score of 6 on DVT Prophylaxis Risk Assessment Guide and she is already anticoagulated with warfarin. She will have SCDs while in bed. 8. Code status. The patient has a MOLST form from [employer], that documents she is a [id number]. I did call the patient's daughter Laura Tellez at [phone] and left a message asking her to call me back. TIME SPENT: Approximately 65 minutes was spent with the medical record review, patient's physical examination to complete this admission; more than half of this time was spent [id number] with the patient and coordination of care. [id number]/[facility] #: [id number] DEMARIO
[2018-07-19 20:08] LABS: Troponin I 0.04 ng/mL (<0.04)
[2018-07-19 20:20] LABS: BUN/Creatinine Ratio 51.4 (8-20); Blood Urea Nitrogen 95 mg/dL (6-24); CO2 Carbon Dioxide 23 mmol/L (22-32); Calcium 8.9 mg/dL (8.6-10.3); EGFR African American 31.3 (>60); EGFR Non-African American 25.9 (>60); Glucose 142 mg/dL (70-100); Potassium 3.3 mmol/L (3.5-5.0)
[2018-07-19 20:21] LABS: Chloride 126 mmol/L (101-111)
[2018-07-19 20:22] LABS: Anion Gap 8 mmol/L (2-11)
[2018-07-19 20:23] LABS: Sodium 157 mmol/L (135-145)
--- NOTE | 2018-07-19 20:35 | PN ---
Hospitalist Progress Note Na 157 from 155, 153. Stopping LR 100 cc/hr. Starting 1/2 NS at 90cc/hr. Recheck BMP 0400 with rest of AM labs.
[2018-07-19] MEDS ORDERED: NS 0.45% 1000 ML BAG* 1,000 ML IV SCH (21:00)
--- NOTE | 2018-07-19 21:25 | PN ---
Sepsis Event Evaluation Date of Evaluation: 07/19/18 Time of Evaluation: 21:24 Current Stage of Sepsis: Sepsis Vital Signs - Last 12 Hours: Vital Signs - 12 hr Temp Pulse Resp BP Pulse Ox 07/19/18 19:53 20 07/19/18 19:52 20 07/19/18 19:15 97.3 F 88 24 142/95 96 07/19/18 16:32 20 07/19/18 16:01 98.4 F 78 20 139/78 97 07/19/18 15:56 20 07/19/18 14:55 99 F 87 20 143/91 94 07/19/18 14:05 86 144/99 97 07/19/18 14:00 89 95 07/19/18 13:48 84 132/91 94 07/19/18 13:01 92 94 07/19/18 12:59 97 135/95 95 07/19/18 12:58 99.8 F 85 20 135/95 94 Lactic Acid: 07/19/18 13:52 Lactic Acid 1.4 - Cardiopulmonary Exam Capillary Refill: Immediate Respiratory: Symmetrical Chest Expansion and Respiratory Effort, Clear to Auscultation Cardiovascular: NL Sounds; No Murmurs; No JVD, RRR, No Edema - Peripheral Pulse Exam Radial Pulses: Bilateral Normal Pedal Pulses: Bilateral Normal - Skin Exam Skin Exam: Normal Turgor - Liberty Coma Scale Best Eye Response: 4 - Spontaneous Best Motor Response: 6 - Obeys Commands Best Verbal Response: 5 - Oriented Coma Scale Total: 15 Assess/Plan/Problems-Billing Assessment: Status and Disposition: Improved. Lactic wnl VSS. Cont IVF hydration as ordered by Dr Hensley. Attending: Mane Hensley
[2018-07-19] MEDS: Carvedilol TAB* 3.125 MG PO SCH (21:46)
[2018-07-20 00:15] LABS: Troponin I 0.04 ng/mL (<0.04)
[2018-07-20] MEDS: metroNIDAZOLE IV 500 MG/100ML* 500 MG/100 ML BAG IVPB SCH ×3 (00:16→15:34)
[2018-07-20 06:28] LABS: ABS Basophils 0 10^3/ul (0-0.2); ABS Eosinophils 0 10^3/ul (0-0.6); ABS Lymphocytes 0.6 10^3/ul (1.0-4.8); ABS Monocytes 1.1 10^3/ul (0-0.8); ABS Neutrophils 11.6 10^3/ul (1.5-7.7); ABS Nucleated RBC 0 10^3/ul; Eosinophil % 0.2 %; Hematocrit 41 % (33-41); Hemoglobin 12.9 g/dL (12.0-16.0); Lymphocyte % 4.7 %; Mean Corpuscular HGB Conc 32 g/dL (31-36); Mean Corpuscular Hemoglobin 26 pg (27-31); Mean Corpuscular Volume 84 fL (80-97); Mean Platelet Volume 11.5 fL (7.4-10.4); Nucleated Red Blood Cells % 0; Platelet Count 130 10^3/uL (150-450); Red Blood Count 4.88 10^6 /uL (3.70-4.87); Red Cell Distribution Width 16 % (10.5-15); White Blood Count 13.4 10^3/uL (3.5-10.8)
[2018-07-20 06:49] LABS: Albumin 2.5 g/dL (3.2-5.2); Albumin/Globulin Ratio 0.7 (1-3); BUN/Creatinine Ratio 50.5 (8-20); Calcium 8.8 mg/dL (8.6-10.3); EGFR African American 31.9 (>60); EGFR Non-African American 26.4 (>60); Globulin 3.7 g/dL (2-4); Potassium 3.5 mmol/L (3.5-5.0); Total Bilirubin 0.7 mg/dL (0.2-1.0); Total Protein 6.2 g/dL (6.4-8.9)
[2018-07-20] MEDS: fentaNYL Patch Check Q Shift 1 NOTE FOLLOW UP SCH ×2 (07:10→20:35)
[2018-07-20] MEDS: D5W 1000 ML BAG* 1,000 ML IV SCH ×3 (07:31→22:59)
[2018-07-20] MEDS: amLODIPine TAB* 5 MG PO SCH (07:35)
[2018-07-20] MEDS: Sertraline* 50 MG TAB PO SCH (07:35)
[2018-07-20] MEDS: Carvedilol TAB* 3.125 MG PO SCH ×2 (07:35→21:40)
[2018-07-20] MEDS: Ferrous Sulfate TAB* 325 MG PO SCH (07:35)
--- NOTE | 2018-07-20 10:28 | PN ---
Subjective Date of Service: 07/20/18 Interval History: HOSPITALIST PROGRESS NOTE Patient seen and examined at bedside. Care reviewed and d/w Lauro Young RN. She is more awake today, able to answer questions. Know she's in the hospital, but does not remember why. Denies nausea and abdominal pain, feels hungry. Family History: Unchanged from Admission Social History: Unchanged from Admission Past Medical History: Unchanged from Admission Objective Active Medications: Acetaminophen (Tylenol Tab*) 650 mg PO Q6H PRN PRN Reason: FEVER/PAIN Amlodipine Besylate (Norvasc Tab*) 5 mg PO DAILY [facility] Last Admin: 07/20/18 07:35 Dose: 5 mg Carvedilol (Coreg Tab*) 3.125 mg PO BID [facility] Last Admin: 07/20/18 07:35 Dose: 3.125 mg Fentanyl (Duragesic Patch 12 Mcg/Hr *) 12 mcg TRANSDERM Q72H [facility] Last Admin: 07/19/18 15:56 Dose: 12 mcg Ferrous Sulfate (Ferrous Sulfate Tab*) 325 mg PO DAILY [facility] Last Admin: 07/20/18 07:35 Dose: 325 mg Ceftriaxone Sodium 1 gm/ (Sodium Chloride) 50 mls @ 200 mls/hr IVPB Q24H [facility] Metronidazole/Sodium Chloride (Flagyl 500 Mg Ivpb*) 500 mg in 100 mls @ 100 mls /hr IVPB Q8H [facility] Last Admin: 07/20/18 07:32 Dose: 100 mls/hr Dextrose (D5w 1000 Ml Bag*) 1,000 mls @ 150 mls/hr IV PER RATE [facility] Last Admin: 07/20/18 07:31 Dose: 150 mls/hr Morphine Sulfate (Morphine 4 Mg/Ml Vial (1 Ml)) 1 mg IV Q1H PRN PRN Reason: SEVERE PAIN Pharmacy Profile Note (Fentanyl Patch Check Q Shift) 1 note FOLLOW UP 0700, 1900 [facility] Last Admin: 07/20/18 07:10 Dose: 1 note Prochlorperazine Edisylate (Compazine Inj*) 5 mg IV Q6H PRN PRN Reason: NAUSEA/VOMITING Sertraline HCl (Zoloft*) 50 mg PO DAILY [facility] Last Admin: 07/20/18 07:35 Dose: 50 mg Vital Signs - 8 hr 07/20/18 07/20/18 03:35 07:15 Temperature 97.2 F 97.9 F Pulse Rate 78 87 Respiratory 25 16 Rate Blood Pressure 156/84 163/93 (mmHg) O2 Sat by Pulse 95 96 Oximetry Oxygen Devices in Use Now: None Appearance: Elderly lady lying in bed in NAD. Eyes: No Scleral Icterus Ears/Nose/Mouth/Throat: Mucous Membranes Moist Neck: Trachea Midline Respiratory: Symmetrical Chest Expansion and Respiratory Effort, Clear to Auscultation Cardiovascular: RRR - Normal S1 and S2 Abdominal: - - Soft, mild RUQ tenderness, NG, NR, BS+ Extremities: No Edema Neurological: - - AAOx2 (self and place), SAUER, face is symmetric, speech is clear Result Diagrams: 07/20/18 06:12 07/20/18 06:12 Assess/Plan/Problems-Billing Assessment: Mrs Tellez is an 87yo F with PMH of depression, dementia, DVT/PE, chronic back pain, iron deficiency anemia, HTN, constipation, GERD, UTI, who presented to ED with c/o abdominal pain, found to have sepsis secondary to UTI. - Patient Problems (1) Sepsis Comment: - Presentation compatible with sepsis with tachycardia and leukocytosis. - Source is likely her urine. (2) UTI (urinary tract infection) Comment: - Follow culture results. - Continue Ceftriaxone #2. - US negative for hydronephrosis or nephrolithiasis. (3) Abdominal pain Comment: - Her initial complaint at [facility] was abdominal pain and she does have some RUQ tenderness on palpation and mild LFT elevation. - US showed cholelithiasis, but no signs of cholecystitis. Also apparent free fluid collection by right liver lobe. - Continue Ceftriaxone and Metronidazole #2. - Will pursue CT abdome with contrast when renal function improves. (4) Hypernatremia Comment: - Change fluids to D5 and continue to monitor. (5) ASUNCION (acute kidney injury) Comment: - Continue aggressive fluid resuscitation and monitor. (6) Elevated troponin I level Comment: - Likely demand ischemia in the setting of sepsis. - Check echo. (7) Supratherapeutic INR Comment: - Recheck - will resume Warfarin if INR<3.0. (8) DVT prophylaxis Comment: - Supratherapuetic INR. (9) DNR (do not resuscitate) Status and Disposition: Inpatient.
[2018-07-20 12:50] LABS: INR 2.62 (0.77-1.02)
[2018-07-20 12:55] LABS: BUN/Creatinine Ratio 50.3 (8-20); Calcium 8.5 mg/dL (8.6-10.3); EGFR African American 35.8 (>60); EGFR Non-African American 29.6 (>60); Potassium 3.3 mmol/L (3.5-5.0)
[2018-07-20] MEDS: KCL 10 MEQ/50 ML IVPREMIX* 10 MEQ/50 ML BAG IV SCH ×4 (13:59→17:57)
[2018-07-20] MEDS ORDERED: cefTRIAXone(*) 1 GM in NS 0.9% 50 ML* 50 ML IVPB SCH (14:00)
[2018-07-20] MEDS ORDERED: Warfarin TAB(*) 3 MG PO SCH (17:00)
--- NOTE | 2018-07-20 17:46 | ECHO ---
Patient: TERESA CHRISTOPHER [facility] Rec#: [id number] : 1930 Date: 07/20/2018 Age: 87y Height: 152 cm / 59.8 in Weight: 68 kg / 149.9 lbs Sex: F BSA: 1.65 Room#: 406 Admit Date#: 07/19/2018 Type: Inpatient Referring: JOB REILLY Reading: Davonte Day DO Dispatch Manager: Lola Clay RDCS CC: Calista Sun MD Transthoracic Echocardiogram Indication: Sepsis, elevated troponin BP: 163/93 HR: 65 Rhythm: NSR Findings History: Dementia, DVT/PE, HTN. Technical Comments: The study quality is fair. Completed at 1600. The study is technically limited due to poor parasternal windows. Left Ventricle: The left ventricular chamber size is normal. Mild concentric left ventricular hypertrophy is observed. There is normal left ventricular systolic function. The estimated ejection fraction is 60-65%. Abnormal left ventricular diastolic function is observed. Left Atrium: The left atrium is moderately dilated. Right Ventricle: The right ventricular chamber size and systolic function are within normal limits. Right Atrium: The right atrium is mildly dilated. Aortic Valve: The aortic valve structure is not well visualized. The aortic valve is trileaflet. There is a trace of aortic regurgitation. There is no evidence of aortic stenosis. Mitral Valve: The mitral valve leaflets are mildly thickened. There is a trace of mitral regurgitation. There is no evidence of mitral stenosis. Tricuspid Valve: The tricuspid valve leaflets are normal. There is trace tricuspid regurgitation. Unable to estimate the right ventricular systolic pressure. There is no tricuspid stenosis. Pulmonic Valve: The pulmonic valve structure is not well visualized. There is no pulmonic stenosis. Pericardium: There is no significant pericardial effusion. Aorta: There is mild dilatation of the ascending aorta. There is no dilatation of the aortic arch. The aortic root is normal in size. Pulmonary Artery: The main pulmonary artery is not well visualized. Venous: The inferior vena cava appears normal in size. There is a greater than 50% respiratory change in the inferior vena cava dimension. Conclusions The left ventricular chamber size is normal Mild concentric left ventricular hypertrophy is observed. There is normal left ventricular systolic function. The estimated ejection fraction is 60-65%. The left atrium is moderately dilated. The right ventricular chamber size and systolic function are No significant valvular abnormalities noted Unable to estimate the right ventricular systolic pressure. None prior for comparison at time of interpretation Measurements Name Value Normal Range RVIDd (AP) 2D 3.4 cm (0.9 - 2.6) RVDdMajor (2D) 5 cm (2.2 - 4.4) RAd ISD 4CH 5.2 cm (3.4 - 4.9) RA (A4C)W 4.9 cm (2.9 - 4.6) IVSd (2D) 1.2 cm (0.6 - 1) LVPWd (2D) 1.2 cm (0.6 - 1) LVIDd (2D) 3.1 cm (3.6 - 5.4) LVIDs (2D) 2.1 cm - LV FS (2D) 32 % (25 - 45) Aortic Annulus 2 cm (1.4 - 2.6) Ao root diameter (2D) 3.3 cm (2.1 - 3.5) Ascending Ao 3.7 cm (2.1 - 3.4) Aortic arch 2.4 cm (1.8 - 3.4) LA dimension (AP) 2D 3.7 cm (2.3 - 3.8) LAd ISD 4CH 6 cm (2.9 - 5.3) LA ISD 4CH W 5.4 cm (2.5 - 4.5) Name Value Normal Range LA ESV BP (A/L) index 48 ml/m2 - Name Value Normal Range MV E-wave Vmax 0.5 m/sec - MV deceleration time 250 msec - MV A-wave Vmax 0.9 m/sec - MV E:A ratio 0.6 ratio - LV septal e' Vmax 0.06 m/sec - LV lateral e' Vmax 0.06 m/sec - LV E:e' septal ratio 8.3 ratio - LV E:e' lateral ratio 8.3 ratio - Name Value Normal Range AV Vmax 1.2 m/sec - AV VTI 23 cm - AV peak gradient 6 mmHg - AV mean gradient 3 mmHg - LVOT Vmax 1.2 m/sec - LVOT VTI 19 cm - LVOT peak gradient 6 mmHg - LVOT mean gradient 2 mmHg - SARITHA Vmax 0.6 m/sec - Name Value Normal Range IVC diameter 1.8 cm - Name Value Normal Range PV Vmax 0.8 m/sec - PV peak gradient 2 mmHg -
[2018-07-20 20:04] LABS: EGFR Non-African American 36.3 (>60)
[2018-07-20 20:14] LABS: Potassium 2.6 mmol/L (3.5-5.0)
[2018-07-20 21:17] LABS: BUN/Creatinine Ratio 46.1 (8-20); Calcium 8.4 mg/dL (8.6-10.3); EGFR African American 35.8 (>60); EGFR Non-African American 29.6 (>60); Potassium 3.5 mmol/L (3.5-5.0)
[2018-07-21] MEDS: metroNIDAZOLE IV 500 MG/100ML* 500 MG/100 ML BAG IVPB SCH ×3 (00:19→19:40)
[2018-07-21] MEDS: D5W 1000 ML BAG* 1,000 ML IV SCH (05:46)
[2018-07-21 06:38] LABS: ABS Basophils 0 10^3/ul (0-0.2); ABS Eosinophils 0.2 10^3/ul (0-0.6); ABS Lymphocytes 0.7 10^3/ul (1.0-4.8); ABS Neutrophils 12.8 10^3/ul (1.5-7.7); ABS Nucleated RBC 0 10^3/ul; Eosinophil % 1.2 %; Hematocrit 41 % (33-41); Hemoglobin 12.6 g/dL (12.0-16.0); Mean Corpuscular HGB Conc 31 g/dL (31-36); Mean Corpuscular Hemoglobin 26 pg (27-31); Mean Corpuscular Volume 86 fL (80-97); Mean Platelet Volume 11.1 fL (7.4-10.4); Nucleated Red Blood Cells % 0; Platelet Count 78 10^3/uL (150-450); Red Blood Count 4.79 10^6 /uL (3.70-4.87); Red Cell Distribution Width 16 % (10.5-15); White Blood Count 14.8 10^3/uL (3.5-10.8)
[2018-07-21 06:46] LABS: INR 2.4 (0.77-1.02)
[2018-07-21 06:53] LABS: BUN/Creatinine Ratio 45.3 (8-20); Calcium 8.1 mg/dL (8.6-10.3); EGFR African American 43.6 (>60); Potassium 3.5 mmol/L (3.5-5.0)
[2018-07-21] MEDS: Ferrous Sulfate TAB* 325 MG PO SCH (09:06)
[2018-07-21] MEDS: Sertraline* 50 MG TAB PO SCH (09:06)
[2018-07-21] MEDS: amLODIPine TAB* 5 MG PO SCH (09:06)
[2018-07-21] MEDS: Carvedilol TAB* 3.125 MG PO SCH ×2 (09:06→22:57)
[2018-07-21] MEDS: fentaNYL Patch Check Q Shift 1 NOTE FOLLOW UP SCH ×2 (09:10→19:03)
[2018-07-21] MEDS: KCL 10 MEQ/50 ML IVPREMIX* 10 MEQ/50 ML BAG IV SCH ×6 (10:11→14:34)
[2018-07-21] MEDS: Lactated Ringers 1000 ML Bag* 1,000 ML IV SCH (10:11)
[2018-07-21 10:27] LABS: Total Bilirubin 0.6 mg/dL (0.2-1.0)
--- NOTE | 2018-07-21 10:27 | PN ---
Subjective Date of Service: 07/21/18 Interval History: HOSPITALIST PROGRESS NOTE Patient seen and examined at bedside. Care reviewed and d/w Cierra Manjarrez RN. She is more lethargic again today, did not touch breakfast. C/o pain but unable to pinpoint where. Family History: Unchanged from Admission Social History: Unchanged from Admission Past Medical History: Unchanged from Admission Objective Active Medications: Acetaminophen (Tylenol Tab*) 650 mg PO Q6H PRN PRN Reason: FEVER/PAIN Amlodipine Besylate (Norvasc Tab*) 5 mg PO DAILY [facility] Last Admin: 07/21/18 09:06 Dose: 5 mg Carvedilol (Coreg Tab*) 3.125 mg PO BID [facility] Last Admin: 07/21/18 09:06 Dose: 3.125 mg Fentanyl (Duragesic Patch 12 Mcg/Hr *) 12 mcg TRANSDERM Q72H [facility] Last Admin: 07/19/18 15:56 Dose: 12 mcg Ferrous Sulfate (Ferrous Sulfate Tab*) 325 mg PO DAILY [facility] Last Admin: 07/21/18 09:06 Dose: 325 mg Ceftriaxone Sodium 1 gm/ (Sodium Chloride) 50 mls @ 200 mls/hr IVPB Q24H [facility] Last Admin: 07/20/18 13:56 Dose: 200 mls/hr Metronidazole/Sodium Chloride (Flagyl 500 Mg Ivpb*) 500 mg in 100 mls @ 100 mls /hr IVPB Q8H [facility] Last Admin: 07/21/18 09:07 Dose: 100 mls/hr Lactated Ringer's (Lactated Ringers 1000 Ml Bag*) 1,000 mls @ 100 mls/hr IV PER RATE [facility] Last Admin: 07/21/18 10:11 Dose: 100 mls/hr Potassium Chloride (Potassium Chloride 10 Meq/50 Ml Ivpremix*) 10 meq in 50 mls @ 50 mls/hr IV Q1HR [facility] Stop: 07/21/18 14:59 Last Admin: 07/21/18 10:11 Dose: 50 mls/hr Morphine Sulfate (Morphine 4 Mg/Ml Vial (1 Ml)) 1 mg IV Q1H PRN PRN Reason: SEVERE PAIN Pharmacy Profile Note (Fentanyl Patch Check Q Shift) 1 note FOLLOW UP 0700, 1900 [facility] Last Admin: 07/21/18 09:10 Dose: 1 note Prochlorperazine Edisylate (Compazine Inj*) 5 mg IV Q6H PRN PRN Reason: NAUSEA/VOMITING Sertraline HCl (Zoloft*) 50 mg PO DAILY [facility] Last Admin: 07/21/18 09:06 Dose: 50 mg Warfarin Sodium (Coumadin Tab(*)) 3 mg PO DAILY@1700 [facility]; Protocol Last Admin: 07/20/18 16:50 Dose: 3 mg Vital Signs - 8 hr 07/21/18 07/21/18 08:14 08:57 Temperature 98.1 F Pulse Rate 62 Respiratory 16 Rate Blood Pressure 175/83 162/84 (mmHg) O2 Sat by Pulse 96 Oximetry Oxygen Devices in Use Now: None Appearance: Elderly lady lying in bed in [facility]. Eyes: No Scleral Icterus Ears/Nose/Mouth/Throat: - - Dry MM Respiratory: Symmetrical Chest Expansion and Respiratory Effort, Clear to Auscultation Cardiovascular: RRR - Normal S1 and S2 Abdominal: - - Soft, mild RUQ and epigastric tenderness, NG, NR, BS+ Neurological: - - Mild lethargy, opens eyes to voice, SAUER, follows simple commands Result Diagrams: 07/21/18 05:54 07/21/18 05:54 Microbiology and Other Data: Microbiology 07/19/18 19:31 Aerobic Blood Culture - Preliminary Blood Venous No Growth Day 1 Anaerobic Blood Culture - Preliminary No Growth Day 1 07/19/18 17:34 Aerobic Blood Culture - Preliminary Blood Venous No Growth Day 1 Anaerobic Blood Culture - Preliminary No Growth Day 1 Assess/Plan/Problems-Billing Assessment: Mrs Tellez is an 87yo F with PMH of depression, dementia, DVT/PE, chronic back pain, iron deficiency anemia, HTN, constipation, GERD, UTI, who presented to ED with c/o abdominal pain, found to have sepsis secondary to UTI. - Patient Problems (1) Sepsis Comment: - Presentation compatible with sepsis with tachycardia and leukocytosis. - Source is likely her urine. (2) UTI (urinary tract infection) Comment: - Follow culture results. - Continue Ceftriaxone #3. - US negative for hydronephrosis or nephrolithiasis. (3) Abdominal pain Comment: - Her initial complaint at [facility] was abdominal pain and she does have some RUQ tenderness on palpation and mild LFT elevation. - US showed cholelithiasis, but no signs of cholecystitis. Also apparent free fluid collection by right liver lobe. - LFTS are back to normal, amylase and lipase also normal. - As her renal function has improved and abdominal pain persists, will pursue CT abd/pelvis with contrast. - Continue Ceftriaxone and Metronidazole #3. (4) Thrombocytopenia Comment: - Has had thrombocytopenia on prior admissions. - D/w Hematology (Dr Worthington) - would monitor platelet count for now. Patient may have mild MDS, exacerbated by her infection now. - No signs of bleeding. (5) Hypernatremia Comment: - Resolved - change fluids to LR. (6) ASUNCION (acute kidney injury) Comment: - Improving with fluid resuscitation. (7) Elevated troponin I level Comment: - Likely demand ischemia in the setting of sepsis. - Echo shows EF 60-65% with no wall motion abnormalities. (8) Supratherapeutic INR Comment: - INR 2.4 - continue Warfarin 3mg and monitor. (9) DVT prophylaxis Comment: - Warfarin. (10) DNR (do not resuscitate) Status and Disposition: Inpatient.
[2018-07-21] MEDS ORDERED: Iodixanol* (CONTRAST) 320 MG/ML 100 ML SDV IV ONE (11:24)
--- NOTE | 2018-07-21 13:58 | PN ---
Hospitalist Progress Note Date of Service: 07/21/18 HOSPITALIST ADDENDUM Abdome US done on admission showed: "1. There appears to be a free fluid collection along the lateral inferior margin of the right lobe of the liver. Superior characterization could be made with contrast- enhanced CT of the abdomen and pelvis. 2. Cholelithiasis without signs of biliary obstruction or acute cholecystitis." CT abdome/pelvis done today revealed: "Dilated gallbladder with air within the gallbladder wall and gallbladder itself. Findings are suspicious for emphysematous cholecystitis. Adjacent fluid collection is also present. Urinary bladder is otherwise unremarkable." Case d/w Surgery (Dr Pappas) - patient deemed too high risk for surgery as she would require an open cholecystectomy in the setting of elevated INR and thrombocytopenia with very high risk for bleeding and complications (even with FFP). I called the patient's HCP (her daughter, Laura Tellez) and explained her situation. She states in the past her mother said she would want to be treated, but "no heroics". We talked about options and her daughter was clear her mom would not want to pursue open abdominal surgery. D/w Interventional Radiology (Dr Potts) - plan for IR guided cholecystostomy today. D/w Hematology (Dr Worthington) - best option to reverse her INR is Kcentra. For her size she would require 5 FFP units and this would be too much fluid for her to handle. Would not recommend platelets transfusion as they are >75k. 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 - Kcentra in preparation for IR guided cholecystostomy later today.
[2018-07-21] MEDS: Cefepime 2 GM in Dextrose(*) 2 GM/50 ML BAG IV SCH (14:34)
[2018-07-21 18:43] LABS: Body Fluid Source OTH
[2018-07-21 18:43] LABS: Body Fluid Source OTH
[2018-07-21] MEDS: fentaNYL* 50 MCG/ML 2 ML VIAL (100 MCG VIAL) ONE ×2 (19:02→19:04)
[2018-07-21] MEDS: fentaNYL PATCH 12 MCG/HR TRANSDERM SCH (19:35)
--- NOTE | 2018-07-21 22:04 | CONS ---
CONSULTATION REPORT: DATE OF CONSULT: 07/21/18 SERVICE: General Surgery. ATTENDING SURGEON: Erika Pappas MD. REQUESTING PROVIDER: Dr. Sue Spence. REASON FOR CONSULT: Possible emphysematous cholecystitis. HISTORY OF PRESENT ILLNESS: Ms. 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 Of note, the majority of this medical history is being obtained from medical records as well as Dr. Spence as the patient has dementia and is only able to answer limited questions about her current state. Again per medical records, the patient began having abdominal pain on 07/15/18. Workup included KUB and UA. It was noted that she was slightly more confused than normal. She seemed to be eating very little at this time and eventually had labs done showing a critical INR of 9.6. She was started empirically as well on antibiotics. Per records, at this point her daughter had been notified and requested that she just get urine test done and not be sent to [facility] for further evaluation. She eventually did get transferred to the emergency room where she was found to be somewhat confused. Her INR was 5.6 in the ED and her white count was elevated at 16.8. She had a UA that was positive for bacteria and nitrites and she was started on antibiotics with cefepime and Flagyl. Further workup included right upper quadrant ultrasound that showed evidence of cholelithiasis, but no evidence of cholecystitis; however, there was evidence as well of having a fluid collection adjacent to the gallbladder as well as findings concerning for air. When she presented to the emergency room her creatinine was also elevated, so she was not able to immediately undergo a CT scan. Her troponins were also slightly elevated and thought to be due to demand ischemia. Of note, she was also extremely hypernatremic upon admission and her sodium was 157. General Surgery was called today because the patient's creatinine had improved to the point where she was able to obtain a CT scan with an oral and IV contrast. The findings were concerning for a dilated gallbladder with air suggestive of emphysematous cholecystitis as well as fluid collection adjacent to the gallbladder. On questioning today, the patient appears uncomfortable in bed. She can answer some questions. She does state that her pain has improved since yesterday. She says that she feels nauseated and she has not been able to eat anything in the past several days. When asked about her surgical and past medical history she says that she has more than she can count. PAST MEDICAL HISTORY: 1. Depression. 2. Dementia. 3. DVT/PE, on chronic anticoagulation with Coumadin. 4. Chronic back pain. 5. Iron deficiency anemia. 6. Hypertension. 7. Constipation. 8. GERD. 9. Prior history of urinary tract infection. PAST SURGICAL HISTORY: 1. Left hip fracture, status post ORIF. 2. Status post right hip total arthroplasty. 3. Status post aortic stent graft. MEDICATIONS: Medications on admission were levofloxacin 500 mg p.o. daily, gabapentin 100 mg p.o. b.i.d., sertraline 50 mg p.o. daily, and omeprazole 20 mg p.o. daily. She had also been given vitamin K prior to coming to the emergency room. ALLERGIES: Per records, she is allergic to OXYCODONE, LACTOSE, FLOMAX, and SILDENAFIL. FAMILY HISTORY: Unable to be obtained. SOCIAL HISTORY: No history of tobacco, alcohol or drug use. She used to work in payroll at the [employer] She is and has 2 children. Her daughter, Laura Tellez is her surrogate decision maker. REVIEW OF SYSTEMS: The review of systems is positive for abdominal pain, nausea , and vomiting. PHYSICAL EXAM: Vital Signs: Temperature is 98.3, pulse is 69, respiratory rate is 20, O2 sat 96% O2 on room air. Blood pressure is 138/80. General: This is an elderly frail-appearing woman, lying comfortably in bed in no apparent distress. HEENT is normocephalic, atraumatic. Abdomen: Soft, nondistended, tender in the right upper quadrant as well as right lower quadrant with some rebound. Extremities: No edema. DIAGNOSTIC STUDIES/LAB DATA: Laboratory values on 07/21/18: White blood cell count is 14.8, hemoglobin 12.6, hematocrit is 41, platelets are 78. INR is 2.4. BMP from 07/20/18; sodium is 149, potassium is 3.5, chloride is 118, CO2 23 , creatinine is 1.65, BUN is 76, glucose is 139, calcium is 8.4. Imaging: CT of abdomen and pelvis on 07/21/18, shows a dilated gallbladder with air in the gallbladder wall and gallbladder itself. Findings were suspicious for emphysematous cholecystitis, adjacent fluid collection is also present. Right upper quadrant or abdominal ultrasound on 07/19/18 showed along the inferior lateral margin of the gallbladder is an avascular mostly hypocholic fluid collection measuring 77 x 28 x 40 mm. There is hyperechogenic material with dirty shadowing which could be air. There is no intrahepatic or extrahepatic biliary dilatation. Note the gallbladder was well visualized. There are echogenic foci in gallbladder lumen with shadowing most consistent with gallstones. There is no gallbladder wall thickening, pericholecystic fluid or sonographic Castillo sign. ASSESSMENT AND PLAN: Ms. Tellez is an 87-year-old female with a history of dementia who in multiple other medical problems who presented to the emergency room with supratherapeutic INR, hypernatremia, elevated troponins, possible acute on chronic renal failure and abdominal pain for several days as well as leukocytosis of unclear etiology, presumably due to a UTI. She was started on antibiotics in her prison and continued empirically in the hospital for a positive urinalysis. Her initial imaging which included a right upper quadrant ultrasound showed cholelithiasis and fluid collection; however, definitive imaging with a CT scan that was done today did show a gallbladder with air in the lumen in the wall as well as an adjacent fluid collection, which is concerning for a perforated gallbladder and abscess. On exam today, the patient appears relatively comfortable and is afebrile with stable vital signs. Her white count has been downtrending and she does have RUQ abdominal tenderness. Given her medical history and the fact that her INR is still elevated at 2.4, and her platelets are low she is not optimal operative candidate for an open cholecystectomy and most likely subtotal cholecystectomy. Dr. Spence spoke with her daughter today who is her surrogate decision maker and she expressed her mother's goals of care were not consistent with having the life saving measures or open surgeries. She has elected for her to just undergo a cholecystostomy tube and drainage of this abscess. She does not wish to have her mother to undergo surgical intervention and said she would want only comfort care should the patient decompensate. Therefore, we recommend pursuing cholecystostomy tube and drainage of this abscess and continuing antibiotics. This was discussed with Dr. Spence. [id number]/[facility] #: [id number] DEMARIO
[2018-07-22] MEDS: Lactated Ringers 1000 ML Bag* 1,000 ML IV SCH ×2 (00:34→13:22)
[2018-07-22] MEDS: metroNIDAZOLE IV 500 MG/100ML* 500 MG/100 ML BAG IVPB SCH ×3 (00:35→16:45)
[2018-07-22 01:12] LABS: Body Fluid Mono 7 %
[2018-07-22 01:59] LABS: Body Fluid Mono 9 %
[2018-07-22] MEDS: Cefepime 2 GM in Dextrose(*) 2 GM/50 ML BAG IV SCH ×2 (02:02→13:56)
[2018-07-22 05:40] LABS: ABS Basophils 0 10^3/ul (0-0.2); ABS Eosinophils 0.1 10^3/ul (0-0.6); ABS Lymphocytes 0.6 10^3/ul (1.0-4.8); ABS Monocytes 0.7 10^3/ul (0-0.8); ABS Neutrophils 14.9 10^3/ul (1.5-7.7); ABS Nucleated RBC 0 10^3/ul; Eosinophil % 0.7 %; Hematocrit 37 % (33-41); Hemoglobin 11.6 g/dL (12.0-16.0); INR 1.44 (0.77-1.02); Lymphocyte % 3.6 %; Mean Corpuscular HGB Conc 32 g/dL (31-36); Mean Corpuscular Hemoglobin 27 pg (27-31); Mean Corpuscular Volume 85 fL (80-97); Mean Platelet Volume 12.7 fL (7.4-10.4); Nucleated Red Blood Cells % 0; Platelet Count 92 10^3/uL (150-450); Red Blood Count 4.33 10^6 /uL (3.70-4.87); Red Cell Distribution Width 16 % (10.5-15); White Blood Count 16.3 10^3/uL (3.5-10.8)
[2018-07-22 05:48] LABS: Albumin 2.2 g/dL (3.2-5.2); Calcium 8.2 mg/dL (8.6-10.3); Potassium 4.3 mmol/L (3.5-5.0); Total Bilirubin 0.8 mg/dL (0.2-1.0)
[2018-07-22 05:54] LABS: Albumin/Globulin Ratio 0.7 (1-3); BUN/Creatinine Ratio 36.6 (8-20); EGFR African American 50.2 (>60); EGFR Non-African American 41.5 (>60); Globulin 3.3 g/dL (2-4); Total Protein 5.5 g/dL (6.4-8.9)
[2018-07-22] MEDS: Morphine 4 MG/ML VIAL (1 ml) 4 MG/ML VIAL IV PRN ×2 (06:35→13:56)
[2018-07-22] MEDS: fentaNYL Patch Check Q Shift 1 NOTE FOLLOW UP SCH ×2 (07:38→18:37)
[2018-07-22] MEDS: Ferrous Sulfate TAB* 325 MG PO SCH (08:51)
[2018-07-22] MEDS: Carvedilol TAB* 3.125 MG PO SCH ×2 (08:51→21:14)
[2018-07-22] MEDS: amLODIPine TAB* 5 MG PO SCH (08:51)
[2018-07-22] MEDS: Sertraline* 50 MG TAB PO SCH (08:51)
--- NOTE | 2018-07-22 10:03 | PN ---
Subjective Date of Service: 07/22/18 Interval History: HOSPITALIST PROGRESS NOTE Patient seen and examined at bedside. Care reviewed and d/w Cierra Feliz RN. She is more alert and awake today. Complains of epigastric pain, but looks more comfortable than yesterday. No reports of nausea and vomiting. Family History: Unchanged from Admission Social History: Unchanged from Admission Past Medical History: Unchanged from Admission Objective Active Medications: Acetaminophen (Tylenol Tab*) 650 mg PO Q6H PRN PRN Reason: FEVER/PAIN Amlodipine Besylate (Norvasc Tab*) 5 mg PO DAILY [facility] Last Admin: 07/22/18 08:51 Dose: 5 mg Carvedilol (Coreg Tab*) 3.125 mg PO BID [facility] Last Admin: 07/22/18 08:51 Dose: 3.125 mg Fentanyl (Duragesic Patch 12 Mcg/Hr *) 12 mcg TRANSDERM Q72H [facility] Last Admin: 07/21/18 19:35 Dose: 12 mcg Ferrous Sulfate (Ferrous Sulfate Tab*) 325 mg PO DAILY [facility] Last Admin: 07/22/18 08:51 Dose: 325 mg Metronidazole/Sodium Chloride (Flagyl 500 Mg Ivpb*) 500 mg in 100 mls @ 100 mls /hr IVPB Q8H [facility] Last Admin: 07/22/18 08:51 Dose: 100 mls/hr Lactated Ringer's (Lactated Ringers 1000 Ml Bag*) 1,000 mls @ 100 mls/hr IV PER RATE [facility] Last Admin: 07/22/18 00:34 Dose: 100 mls/hr Cefepime HCl (Maxipime 2 Gm In Dextrose Duplex (*)) 2 gm in 50 mls @ 100 mls/ hr IV Q12H [facility] Last Admin: 07/22/18 02:02 Dose: 100 mls/hr Morphine Sulfate (Morphine 4 Mg/Ml Vial (1 Ml)) 1 mg IV Q1H PRN PRN Reason: SEVERE PAIN Last Admin: 07/22/18 06:35 Dose: 1 mg Pharmacy Profile Note (Fentanyl Patch Check Q Shift) 1 note FOLLOW UP 0700, 1900 [facility] Last Admin: 07/22/18 07:38 Dose: 1 note Prochlorperazine Edisylate (Compazine Inj*) 5 mg IV Q6H PRN PRN Reason: NAUSEA/VOMITING Sertraline HCl (Zoloft*) 50 mg PO DAILY [facility] Last Admin: 07/22/18 08:51 Dose: 50 mg Vital Signs - 8 hr 07/22/18 07/22/18 07/22/18 04:06 06:35 07:59 Temperature 96.8 F 98.3 F Pulse Rate 78 70 Respiratory 22 20 20 Rate Blood Pressure 129/74 153/79 (mmHg) O2 Sat by Pulse 96 98 Oximetry 07/22/18 08:19 Temperature 98.3 F Pulse Rate 70 Respiratory 20 Rate Blood Pressure 153/79 (mmHg) O2 Sat by Pulse 98 Oximetry Oxygen Devices in Use Now: None Appearance: Elderly lady lying in bed in [facility]. Eyes: No Scleral Icterus Ears/Nose/Mouth/Throat: Mucous Membranes Moist Neck: Trachea Midline Respiratory: Symmetrical Chest Expansion and Respiratory Effort, Clear to Auscultation Cardiovascular: RRR - Normal S1 and S2 Abdominal: - - Soft, mild RUQ and epigastric tenderness, 2 drains in RUQ (one draining dark bilious fluid and the other draining yellow fluid), BS+ Neurological: - - AAOx2 (self and place), SAUER Result Diagrams: 07/22/18 05:14 07/22/18 05:14 Microbiology and Other Data: Microbiology 07/19/18 19:31 Aerobic Blood Culture - Preliminary Blood Venous No Growth Day 1 Anaerobic Blood Culture - Preliminary No Growth Day 1 07/19/18 17:34 Aerobic Blood Culture - Preliminary Blood Venous No Growth Day 1 Anaerobic Blood Culture - Preliminary No Growth Day 1 Assess/Plan/Problems-Billing Assessment: Mrs Tellez is an 87yo F with PMH of depression, dementia, DVT/PE, chronic back pain, iron deficiency anemia, HTN, constipation, GERD, UTI, who presented to ED with c/o abdominal pain, found to have sepsis secondary to UTI. - Patient Problems (1) Severe sepsis Comment: - Presentation compatible with severe sepsis, with tachycardia and leukocytosis, complicated by ASUNCION. - Source is emphyesematous cholecystitis and perihepatic abscess. (2) Emphysematous cholecystitis Comment: - s/p drains placement by IR - one in the GB and another in the abscess - will flush q6h. - F/u cultures. - Antibiotics broadened to Cefepime and Metronidazole. - ID consult. - Surgery consult appreciated - will need another CT later this week for follow up. Depending on the course, may need to d/w radiology to upsize her drains. (3) Thrombocytopenia Comment: - Has had thrombocytopenia on prior admissions. - D/w Hematology (Dr Worthington) - would monitor platelet count for now. Patient may have mild MDS, exacerbated by her infection now. - No signs of bleeding. - Trendind up. (4) Hypernatremia Comment: - Resolved - change fluids to LR. (5) ASUNCION (acute kidney injury) Comment: - Improving with fluid resuscitation. (6) Elevated troponin I level Comment: - Likely demand ischemia in the setting of sepsis. - Echo shows EF 60-65% with no wall motion abnormalities. (7) DVT prophylaxis Comment: - SQ heparin. - Will not resume Warfarin for now, as she may need more procedures. (8) DNR (do not resuscitate) Status and Disposition: Inpatient. Called daughter (Laura Tellez) and left a message asking to call me back.
--- NOTE | 2018-07-22 10:59 | PN ---
Progress Note - Progress Note Date of Service: 07/22/18 Note: Surgery Progress Note S: Patient is doing well. Yesterday she underwent placement of cholecystostomy tube and IR drainage catheter in adjacent abscess cavity with reportedly 30 cc of purulent fluid and 30 cc of blood tinged fluid. Per daughter she seems more comfortable today and patient does not complain of pain, nausea or emesis. Drains flushed at bedside. Gallbladder drain thicker fluid and took several aspirations to remove all 10cc saline flush. O: Vital Signs: Temp Pulse Resp BP Pulse Ox 98.3 F 70 20 153/79 98 07/22/18 08:19 07/22/18 08:19 07/22/18 08:19 07/22/18 08:19 07/22/18 08:19 Laboratory Results - last 24 hr 07/21/18 07/21/18 07/21/18 05:54 17:36 18:29 WBC RBC Hgb Hct MCV MCH MCHC RDW Plt Count MPV Neut % (Auto) Lymph % (Auto) Crowley % (Auto) Eos % (Auto) Baso % (Auto) Absolute Neuts (auto) Absolute Lymphs (auto) Absolute Monos (auto) Absolute Eos (auto) Absolute Basos (auto) Absolute Nucleated RBC Nucleated RBC % INR (Anticoag Therapy) Sodium Potassium Chloride Carbon Dioxide Anion Gap BUN Creatinine Est GFR ( Amer) Est GFR (Non-Af Amer) BUN/Creatinine Ratio Glucose Calcium Total Bilirubin GGT 41 AST ALT Alkaline Phosphatase Total Protein Albumin Globulin Albumin/Globulin Ratio Fluid Source Oth Oth Fluid Volume 29 14 Fluid Color Elizabeth Red Fluid Appearance Cloudy Cloudy Fluid WBC 131344 3294 Fluid RBC 51962 17097 Fluid Tot Cell Count 100 100 Fluid Neutrophils 93 81 Fluid Lymphocytes 10 Fluid Monocytes 7 9 07/22/18 07/22/18 07/22/18 05:14 05:14 05:14 WBC 16.3 H RBC 4.33 Hgb 11.6 L Hct 37 MCV 85 MCH 27 MCHC 32 RDW 16 H Plt Count 92 L MPV 12.7 H Neut % (Auto) 91.2 Lymph % (Auto) 3.6 Crowley % (Auto) 4.5 Eos % (Auto) 0.7 Baso % (Auto) 0 Absolute Neuts (auto) 14.9 H Absolute Lymphs (auto) 0.6 L Absolute Monos (auto) 0.7 Absolute Eos (auto) 0.1 Absolute Basos (auto) 0 Absolute Nucleated RBC 0 Nucleated RBC % 0 INR (Anticoag Therapy) 1.44 H Sodium 142 Potassium 4.3 Chloride 116 H Carbon Dioxide 19 L Anion Gap 7 BUN 45 H Creatinine 1.23 H Est GFR ( Amer) 50.2 Est GFR (Non-Af Amer) 41.5 BUN/Creatinine Ratio 36.6 H Glucose 122 H Calcium 8.2 L Total Bilirubin 0.80 GGT AST 18 ALT 16 Alkaline Phosphatase 98 Total Protein 5.5 L Albumin 2.2 L Globulin 3.3 Albumin/Globulin Ratio 0.7 L Fluid Source Fluid Volume Fluid Color Fluid Appearance Fluid WBC Fluid RBC Fluid Tot Cell Count Fluid Neutrophils Fluid Lymphocytes Fluid Monocytes Intake & Output 07/21/18 07/22/18 07/22/18 22:59 06:59 14:59 Intake Total 389 1128 0 Output Total 700 500 40 Balance -311 628 -40 Weight 158 lb 3.2 oz Intake: IV Fluids 289 978 LR 269 978 ns 0.9% 20 IVPB 100 150 LR 150 ns 0.9% 100 Oral 0 0 0 Output: MARJ #1 10 MARJ #2 10 Urine 700 500 Irrigation 20 Other: Other Amount Description Absess drain = MARJ #2 Abdomen: soft, minimally tender in RUQ. Drain x [address], no drainage in bag A/P: 87 F with [facility], who presented with abdominal pain and leukocytosis with UTI, found on CT to have likely perforated gallbladder with abscess, s/p IR drainage. - Recommend increasing flushing of tube to 2-3 times per nursing shift. Staff should ensure that tube is open (stop cock is parallel to tube) and that all saline that is flushed is also aspirated. Please record drain output in IOs, even if 0. Spoke to Dr. Potts today about catheters. Patient probably should have repeat CT scan later this week and assess if collection still remains. IR could aspirate more or upsize drain if necessary. - Continue cefepime, flagyl. Await cultures. - Recommend slowly advancing diet. - Spoke to daughter this AM who reiterated that she did not wish for further treatment than drainage for her mother even if she were to decompensate. She does not wish for her to have surgery or aggressive therapy. She also was wondering if coumadin was still necessary given PE were remote, approximately 20 years ago
[2018-07-22] MEDS: Heparin VIAL(*) 5000 UNITS/ML VIAL (FIVE THOUSAND) SUBCUT SCH ×2 (13:56→21:14)
[2018-07-23] MEDS: metroNIDAZOLE IV 500 MG/100ML* 500 MG/100 ML BAG IVPB SCH ×3 (00:58→15:49)
[2018-07-23] MEDS: Cefepime 2 GM in Dextrose(*) 2 GM/50 ML BAG IV SCH ×2 (02:08→14:19)
[2018-07-23] MEDS: Lactated Ringers 1000 ML Bag* 1,000 ML IV SCH ×2 (04:31→09:57)
[2018-07-23] MEDS: Heparin VIAL(*) 5000 UNITS/ML VIAL (FIVE THOUSAND) SUBCUT SCH ×3 (05:45→21:42)
[2018-07-23] MEDS: fentaNYL Patch Check Q Shift 1 NOTE FOLLOW UP SCH ×2 (06:31→19:18)
[2018-07-23] MEDS: Carvedilol TAB* 3.125 MG PO SCH ×2 (08:36→21:41)
[2018-07-23] MEDS: amLODIPine TAB* 5 MG PO SCH (08:37)
[2018-07-23] MEDS: Sertraline* 50 MG TAB PO SCH (08:37)
[2018-07-23] MEDS: Ferrous Sulfate TAB* 325 MG PO SCH (08:37)
--- NOTE | 2018-07-23 08:49 | PN ---
Progress Note - Progress Note Date of Service: 07/23/18 Note: Surgery Progress Note S: Patient's daughter is at bedside. Dr. Feng left her a message yesterday but she wasn't able to call back until after work. Patient appears comfortable today and doesn't have any complaints. No nausea or emesis. Doesn't feel very hungry. Tolerated clear liquid diet. IR drains x 2 with improved output. Patient remains afebrile, VSS. No labs resulted yet from this morning. O: Vital Signs: Temp Pulse Resp BP Pulse Ox 97.9 F 64 18 142/79 97 07/23/18 08:10 07/23/18 08:10 07/23/18 08:11 07/23/18 08:10 07/23/18 08:10 Intake & Output 07/22/18 07/23/18 07/23/18 22:59 06:59 14:59 Intake Total 748 966 Output Total 650 825 Balance 98 141 Weight 160 lb Intake: IV Fluids 168 866 LR 168 821 ns 0.9% 45 IVPB 100 ns 0.9% 100 Oral 580 0 Output: NG Tube Drainage Amount 0 MARJ #1 100 MARJ #2 50 Sykes 500 825 Other: # Bowel Movements 0 Estimated Stool Amount Small Labs: pending Abd: soft, minimally tender in RUQ. IR drain x 2- gallbladder drain with bilious purulent fluid and murky serosang fluid in abscess drain A/P: 87 F with likely perforated gallbladder and abscess s/p IR drainage, stable. - Continue drains, putting out 100/60 yesterday. When WBC improves and abscess drainage drops off should repeat CT scan - Continue abx, no growth from drain fluid cultures yet. - Recommend advancing diet as tolerated
[2018-07-23 09:17] LABS: ABS Basophils 0 10^3/ul (0-0.2); ABS Eosinophils 0.2 10^3/ul (0-0.6); ABS Lymphocytes 0.6 10^3/ul (1.0-4.8); ABS Monocytes 0.7 10^3/ul (0-0.8); ABS Neutrophils 12.4 10^3/ul (1.5-7.7); ABS Nucleated RBC 0 10^3/ul; Eosinophil % 1.3 %; Hematocrit 36 % (33-41); Hemoglobin 11.5 g/dL (12.0-16.0); Mean Corpuscular HGB Conc 32 g/dL (31-36); Mean Corpuscular Hemoglobin 27 pg (27-31); Mean Corpuscular Volume 83 fL (80-97); Mean Platelet Volume 11.8 fL (7.4-10.4); Nucleated Red Blood Cells % 0; Platelet Count 80 10^3/uL (150-450); Red Blood Count 4.27 10^6 /uL (3.70-4.87); Red Cell Distribution Width 16 % (10.5-15); White Blood Count 13.9 10^3/uL (3.5-10.8)
[2018-07-23 09:36] LABS: Albumin 2.1 g/dL (3.2-5.2); Albumin/Globulin Ratio 0.6 (1-3); BUN/Creatinine Ratio 30.9 (8-20); C Reactive Protein 93.06 mg/L (<8.01); Calcium 7.9 mg/dL (8.6-10.3); EGFR African American 57.1 (>60); EGFR Non-African American 47.2 (>60); Globulin 3.3 g/dL (2-4); Potassium 3.7 mmol/L (3.5-5.0); Total Bilirubin 0.6 mg/dL (0.2-1.0); Total Protein 5.4 g/dL (6.4-8.9)
--- NOTE | 2018-07-23 09:55 | PN ---
Subjective Date of Service: 07/23/18 Interval History: Pt feels well, c/o RUQ abd pain when she moves only. Tolerating liquid diet with no difficulty. As per d/w Pt's RN last BM was yesterday Family History: Unchanged from Admission Social History: Unchanged from Admission Past Medical History: Unchanged from Admission Objective Active Medications: Acetaminophen (Tylenol Tab*) 650 mg PO Q6H PRN PRN Reason: FEVER/PAIN Amlodipine Besylate (Norvasc Tab*) 5 mg PO DAILY [facility] Last Admin: 07/23/18 08:37 Dose: 5 mg Carvedilol (Coreg Tab*) 3.125 mg PO BID [facility] Last Admin: 07/23/18 08:36 Dose: 3.125 mg Fentanyl (Duragesic Patch 12 Mcg/Hr *) 12 mcg TRANSDERM Q72H [facility] Last Admin: 07/21/18 19:35 Dose: 12 mcg Ferrous Sulfate (Ferrous Sulfate Tab*) 325 mg PO DAILY [facility] Last Admin: 07/23/18 08:37 Dose: 325 mg Heparin Sodium (Porcine) (Heparin Vial(*)) 5,000 units SUBCUT Q8HR [facility] Last Admin: 07/23/18 05:45 Dose: 5,000 units Metronidazole/Sodium Chloride (Flagyl 500 Mg Ivpb*) 500 mg in 100 mls @ 100 mls /hr IVPB Q8H [facility] Last Admin: 07/23/18 08:39 Dose: 100 mls/hr Cefepime HCl (Maxipime 2 Gm In Dextrose Duplex (*)) 2 gm in 50 mls @ 100 mls/ hr IV Q12H [facility] Last Admin: 07/23/18 02:08 Dose: 100 mls/hr Lactated Ringer's (Lactated Ringers 1000 Ml Bag*) 1,000 mls @ 50 mls/hr IV PER RATE [facility] Morphine Sulfate (Morphine 4 Mg/Ml Vial (1 Ml)) 1 mg IV Q1H PRN PRN Reason: SEVERE PAIN Last Admin: 07/22/18 13:56 Dose: 1 mg Pharmacy Profile Note (Fentanyl Patch Check Q Shift) 1 note FOLLOW UP 0700, 1900 [facility] Last Admin: 07/23/18 06:31 Dose: 1 note Prochlorperazine Edisylate (Compazine Inj*) 5 mg IV Q6H PRN PRN Reason: NAUSEA/VOMITING Sertraline HCl (Zoloft*) 50 mg PO DAILY [facility] Last Admin: 07/23/18 08:37 Dose: 50 mg Vital Signs - 8 hr 07/23/18 07/23/18 07/23/18 04:00 08:10 08:11 Temperature 97.4 F 97.9 F Pulse Rate 63 64 Respiratory 20 18 18 Rate Blood Pressure 146/88 142/79 (mmHg) O2 Sat by Pulse 98 97 Oximetry Oxygen Devices in Use Now: None Appearance: 87 yo F in nAD, AAOx2, very poor historian Eyes: No Scleral Icterus, PERRLA Ears/Nose/Mouth/Throat: NL Teeth, Lips, Gums, Mucous Membranes Moist Neck: NL Appearance and Movements; NL JVP, Trachea Midline Respiratory: Symmetrical Chest Expansion and Respiratory Effort, Clear to Auscultation Cardiovascular: NL Sounds; No Murmurs; No JVD, RRR Abdominal: - - + epigastric tenderness, no rebound, no guarding, BS+. @ drain placed in RUQ once draining serous fluid tinged wth blood, the other one draining bile with purulent material Lymphatic: No Cervical Adenopathy Extremities: No Edema Skin: No Rash or Ulcers, No Nodules or Sclerosis Neurological: NL Muscle Strength and Tone Result Diagrams: 07/23/18 08:50 07/23/18 08:50 Microbiology and Other Data: Microbiology 07/19/18 19:31 Aerobic Blood Culture - Preliminary Blood Venous No Growth Day 1 Anaerobic Blood Culture - Preliminary No Growth Day 1 07/19/18 17:34 Aerobic Blood Culture - Preliminary Blood Venous No Growth Day 1 Anaerobic Blood Culture - Preliminary No Growth Day 1 Assess/Plan/Problems-Billing Assessment: Mrs Tellez is an 87yo F with PMH of depression, dementia, DVT/PE, chronic back pain, iron deficiency anemia, HTN, constipation, GERD, UTI, who presented to ED with c/o abdominal pain, found to have sepsis secondary to UTI. - Patient Problems (1) Emphysematous cholecystitis Comment: - s/p drains placement by IR - one in the GB and another in the abscess - will flush q6h. - F/u cultures. - Antibiotics broadened to Cefepime and Metronidazole.Appears to be doing better today, advancing diet to soft - ID consult. - Surgery consult appreciated - will need another CT later this week for follow up. Depending on the course, may need to d/w radiology to upsize her drains. (2) Severe sepsis SNOMED Code(s): 18341591 Comment: - Presentation compatible with severe sepsis, with tachycardia and leukocytosis, complicated by ASUNCION. - Source is emphyesematous cholecystitis and perihepatic abscess. (3) ASUNCION (acute kidney injury) Comment: - Improving with fluid resuscitation. (4) Elevated troponin I level Comment: - Likely demand ischemia in the setting of sepsis. - Echo shows EF 60-65% with no wall motion abnormalities. (5) Hypernatremia Comment: - Resolved (6) Thrombocytopenia Comment: - Has had thrombocytopenia on prior admissions. - D/w Hematology (Dr Worthington on 07/21/18) - would monitor platelet count for now. Patient may have mild MDS, exacerbated by her infection now. - No signs of bleeding. - Trending up. (7) DVT (deep venous thrombosis) Comment: - Unclear when she was dx with DVT of the lower leg - Pt is a poor historian and no records at [facility] to confirm - Per patient's family has been on coumadin for approx 25 years after having a DVT, family denied any knowledge of clotting disorders or recurrent DVT's. Grandson Jin stated that patient has not had a DVT within the last 10 years while he was caring for her and has no known history heart disease or irregular heart beat. - Plan to hold coumadin per above (8) DVT prophylaxis Comment: - SQ heparin. - Will not resume Warfarin for now, as she may need more procedures. Status and Disposition: Inpatient.
[2018-07-24] MEDS: metroNIDAZOLE IV 500 MG/100ML* 500 MG/100 ML BAG IVPB SCH ×3 (00:01→15:55)
[2018-07-24] MEDS: Cefepime 2 GM in Dextrose(*) 2 GM/50 ML BAG IV SCH (01:21)
[2018-07-24] MEDS: Lactated Ringers 1000 ML Bag* 1,000 ML IV SCH (02:13)
[2018-07-24] MEDS: Heparin VIAL(*) 5000 UNITS/ML VIAL (FIVE THOUSAND) SUBCUT SCH ×3 (06:12→22:10)
[2018-07-24] MEDS: fentaNYL Patch Check Q Shift 1 NOTE FOLLOW UP SCH ×2 (06:48→18:47)
[2018-07-24 08:17] LABS: Albumin 2.1 g/dL (3.2-5.2); Albumin/Globulin Ratio 0.6 (1-3); Calcium 7.8 mg/dL (8.6-10.3); EGFR African American 63.8 (>60); EGFR Non-African American 52.7 (>60); Globulin 3.3 g/dL (2-4); Potassium 3.4 mmol/L (3.5-5.0); Total Bilirubin 0.6 mg/dL (0.2-1.0); Total Protein 5.4 g/dL (6.4-8.9)
[2018-07-24 08:19] LABS: ABS Basophils 0 10^3/ul (0-0.2); ABS Eosinophils 0.2 10^3/ul (0-0.6); ABS Lymphocytes 0.7 10^3/ul (1.0-4.8); ABS Neutrophils 12.9 10^3/ul (1.5-7.7); ABS Nucleated RBC 0 10^3/ul; Eosinophil % 1.2 %; Hematocrit 36 % (33-41); Hemoglobin 11.7 g/dL (12.0-16.0); Lymphocyte % 4.7 %; Mean Corpuscular HGB Conc 33 g/dL (31-36); Mean Corpuscular Hemoglobin 27 pg (27-31); Mean Corpuscular Volume 82 fL (80-97); Mean Platelet Volume 11.6 fL (7.4-10.4); Nucleated Red Blood Cells % 0; Platelet Count 77 10^3/uL (150-450); Red Blood Count 4.33 10^6 /uL (3.70-4.87); Red Cell Distribution Width 16 % (10.5-15); White Blood Count 14.8 10^3/uL (3.5-10.8)
[2018-07-24] MEDS: amLODIPine TAB* 5 MG PO SCH (08:23)
[2018-07-24] MEDS: Ferrous Sulfate TAB* 325 MG PO SCH (08:23)
[2018-07-24] MEDS: Sertraline* 50 MG TAB PO SCH (08:24)
[2018-07-24] MEDS: Carvedilol TAB* 3.125 MG PO SCH ×2 (08:24→22:10)
--- NOTE | 2018-07-24 09:26 | PN ---
Progress Note - Progress Note Date of Service: 07/24/18 Note: Surgery Progress Note S: Patient says she doesn't feel well this morning. She is tolerating a soft diet and denies nausea, emesis. She has BM. Has RUQ pain still, around drains. Remains afebrile. O: Vital Signs: Temp Pulse Resp BP Pulse Ox 97.5 F 68 14 147/78 96 07/24/18 08:00 07/24/18 08:00 07/24/18 08:00 07/24/18 08:00 07/24/18 08:00 Laboratory Results - last 24 hr 07/21/18 07/21/18 07/23/18 17:36 18:29 08:50 WBC RBC Hgb Hct MCV MCH MCHC RDW Plt Count MPV Neut % (Auto) Lymph % (Auto) [place]alle % (Auto) Eos % (Auto) Baso % (Auto) Absolute Neuts (auto) Absolute Lymphs (auto) Absolute Monos (auto) Absolute Eos (auto) Absolute Basos (auto) Absolute Nucleated RBC Nucleated RBC % Sodium 142 Potassium 3.7 Chloride 112 H Carbon Dioxide 25 Anion Gap 5 BUN 34 H Creatinine 1.10 H Est GFR ( Amer) 57.1 Est GFR (Non-Af Amer) 47.2 BUN/Creatinine Ratio 30.9 H Glucose 120 H Calcium 7.9 L Total Bilirubin 0.60 AST 14 ALT 13 Alkaline Phosphatase 85 C-Reactive Protein 93.06 H Total Protein 5.4 L Albumin 2.1 L Globulin 3.3 Albumin/Globulin Ratio 0.6 L Fluid Cell Count Rvw By 07/24/18 07/24/18 07:54 07:54 WBC 14.8 H RBC 4.33 Hgb 11.7 L Hct 36 MCV 82 MCH 27 MCHC 33 RDW 16 H Plt Count 77 L MPV 11.6 H Neut % (Auto) 87.2 Lymph % (Auto) 4.7 [place]alle % (Auto) 6.7 Eos % (Auto) 1.2 Baso % (Auto) 0.2 Absolute Neuts (auto) 12.9 H Absolute Lymphs (auto) 0.7 L Absolute Monos (auto) 1.0 H Absolute Eos (auto) 0.2 Absolute Basos (auto) 0 Absolute Nucleated RBC 0 Nucleated RBC % 0 Sodium 139 Potassium 3.4 L Chloride 110 Carbon Dioxide 24 Anion Gap 5 BUN 26 H Creatinine 1.00 H Est GFR ( Amer) 63.8 Est GFR (Non-Af Amer) 52.7 BUN/Creatinine Ratio 26.0 H Glucose 137 H Calcium 7.8 L Total Bilirubin 0.60 AST 14 ALT 11 Alkaline Phosphatase 80 C-Reactive Protein Total Protein 5.4 L Albumin 2.1 L Globulin 3.3 Albumin/Globulin Ratio 0.6 L Fluid Cell Count Rvw By Intake & Output 07/23/18 07/24/18 07/24/18 22:59 06:59 14:59 Intake Total 440 120 Output Total 35 Balance 405 120 Weight 160 lb 9.6 oz Intake: IV Fluids 20 ns 0.9% 20 IVPB 100 flagyl 100 Oral 440 Output: MARJ #1 10 MARJ #2 25 Other: Estimated Void Large Large # Bowel Movements 0 # Voids 1 1 Drains: #1- 120 #2- 155 Physical exam: Abdomen- soft, tender in RUQ, drains x 2 with bilious and serosanguinous fluid present A/P: 87 F with likely perforated gallbladder and abscess, s/p drainage and cholecystostomy tube. - Continue IV abx, awaiting sensitivities of cx from gallbladder fluid - Continue soft diet
[2018-07-24] MEDS ORDERED: Potassium Chlor TAB* 20 MEQ TAB.ER PO ONE (11:27)
--- NOTE | 2018-07-24 11:40 | PN ---
Subjective Date of Service: 07/24/18 Interval History: pt still c/o significant mid and RUQ abd pain. stated that she ate god breakfast Family History: Unchanged from Admission Social History: Unchanged from Admission Past Medical History: Unchanged from Admission Objective Active Medications: Acetaminophen (Tylenol Tab*) 650 mg PO Q6H PRN PRN Reason: FEVER/PAIN Amlodipine Besylate (Norvasc Tab*) 5 mg PO DAILY [facility] Last Admin: 07/24/18 08:23 Dose: 5 mg Carvedilol (Coreg Tab*) 3.125 mg PO BID [facility] Last Admin: 07/24/18 08:24 Dose: 3.125 mg Fentanyl (Duragesic Patch 12 Mcg/Hr *) 12 mcg TRANSDERM Q72H [facility] Last Admin: 07/21/18 19:35 Dose: 12 mcg Ferrous Sulfate (Ferrous Sulfate Tab*) 325 mg PO DAILY [facility] Last Admin: 07/24/18 08:23 Dose: 325 mg Heparin Sodium (Porcine) (Heparin Vial(*)) 5,000 units SUBCUT Q8HR [facility] Last Admin: 07/24/18 06:12 Dose: 5,000 units Metronidazole/Sodium Chloride (Flagyl 500 Mg Ivpb*) 500 mg in 100 mls @ 100 mls /hr IVPB Q8H [facility] Last Admin: 07/24/18 08:22 Dose: 100 mls/hr Lactated Ringer's (Lactated Ringers 1000 Ml Bag*) 1,000 mls @ 50 mls/hr IV PER RATE [facility] Last Admin: 07/24/18 02:13 Dose: 50 mls/hr Ceftriaxone Sodium 1 gm/ (Sodium Chloride) 50 mls @ 200 mls/hr IVPB Q24H [facility] Morphine Sulfate (Morphine 4 Mg/Ml Vial (1 Ml)) 1 mg IV Q1H PRN PRN Reason: SEVERE PAIN Last Admin: 07/22/18 13:56 Dose: 1 mg Pharmacy Profile Note (Fentanyl Patch Check Q Shift) 1 note FOLLOW UP 0700, 1900 [facility] Last Admin: 07/24/18 06:48 Dose: 1 note Prochlorperazine Edisylate (Compazine Inj*) 5 mg IV Q6H PRN PRN Reason: NAUSEA/VOMITING Sertraline HCl (Zoloft*) 50 mg PO DAILY [facility] Last Admin: 07/24/18 08:24 Dose: 50 mg Vital Signs - 8 hr 07/24/18 07/24/18 04:06 08:00 Temperature 98.1 F 97.5 F Pulse Rate 70 68 Respiratory 18 14 Rate Blood Pressure 148/81 147/78 (mmHg) O2 Sat by Pulse 96 96 Oximetry Oxygen Devices in Use Now: None Appearance: 87 yo m in nAD, AAOx2. poor historian Eyes: No Scleral Icterus, PERRLA Ears/Nose/Mouth/Throat: NL Teeth, Lips, Gums, Mucous Membranes Moist Neck: NL Appearance and Movements; NL JVP, Trachea Midline Respiratory: Symmetrical Chest Expansion and Respiratory Effort, Clear to Auscultation Cardiovascular: RRR Abdominal: - - soft tender in epigastric and RUQ region, no rebound, no guarding , bS+. two MARJ drain in RUQ draining bile+ purulent material Lymphatic: No Cervical Adenopathy Extremities: No Edema, No Clubbing, Cyanosis Skin: No Rash or Ulcers, No Nodules or Sclerosis Neurological: NL Muscle Strength and Tone Result Diagrams: 07/24/18 07:54 07/24/18 07:54 Microbiology and Other Data: Microbiology 07/19/18 19:31 Aerobic Blood Culture - Preliminary Blood Venous No Growth Day 1 Anaerobic Blood Culture - Preliminary No Growth Day 1 07/19/18 17:34 Aerobic Blood Culture - Preliminary Blood Venous No Growth Day 1 Anaerobic Blood Culture - Preliminary No Growth Day 1 Assess/Plan/Problems-Billing Assessment: Mrs Tellez is an 87yo F with PMH of depression, dementia, DVT/PE, chronic back pain, iron deficiency anemia, HTN, constipation, GERD, UTI, who presented to ED with c/o abdominal pain, found to have sepsis secondary to UTI. - Patient Problems (1) Emphysematous cholecystitis Comment: - s/p drains placement by IR - one in the GB and another in the abscess - will flush q6h. - cx showing Klebsiella . - Antibiotics changed to Ceftriaxone, cont Metronidazole. cont soft diet - ID consult. - Surgery consult appreciated - will need another CT later this week for follow up. Depending on the course, may need to d/w radiology to upsize her drains. (2) Severe sepsis SNOMED Code(s): 44067964 Comment: - Presentation compatible with severe sepsis, with tachycardia and leukocytosis, complicated by ASUNCION. - Source is emphyesematous cholecystitis and perihepatic abscess. (3) ASUNCION (acute kidney injury) Comment: - Improving with fluid resuscitation. (4) Elevated troponin I level Comment: - Likely demand ischemia in the setting of sepsis. - Echo shows EF 60-65% with no wall motion abnormalities. (5) Hypernatremia Comment: - Resolved (6) Thrombocytopenia Comment: - Has had thrombocytopenia on prior admissions. - D/w Hematology (Dr Worthington on 07/21/18) - would monitor platelet count for now. Patient may have mild MDS, exacerbated by her infection now. - No signs of bleeding. - stable (7) DVT (deep venous thrombosis) Comment: - Unclear when she was dx with DVT of the lower leg - Pt is a poor historian and no records at [facility] [place] [facility] to confirm - Per patient's family has been on coumadin for approx 25 years after having a DVT, family denied any knowledge of clotting disorders or recurrent DVT's. Grandanjali Abdi stated that patient has not had a DVT within the last 10 years while he was caring for her and has no known history heart disease or irregular heart beat. - Plan to hold coumadin due to thrombocytopenia and possible need of further intervention (8) DVT prophylaxis Comment: - SQ heparin. - Will not resume Warfarin for now, as she may need more procedures and is thrombocytopenic Status and Disposition: Inpatient.
[2018-07-24] MEDS ORDERED: Magnesium Sulfate 1 GM IV* 1 GM/100 ML BAG IV ONE (18:00)
[2018-07-24] MEDS: fentaNYL PATCH 12 MCG/HR TRANSDERM SCH (18:46)
[2018-07-25] MEDS: metroNIDAZOLE IV 500 MG/100ML* 500 MG/100 ML BAG IVPB SCH ×3 (00:08→15:54)
[2018-07-25] MEDS: Heparin VIAL(*) 5000 UNITS/ML VIAL (FIVE THOUSAND) SUBCUT SCH ×3 (05:29→20:57)
[2018-07-25] MEDS: Lactated Ringers 1000 ML Bag* 1,000 ML IV SCH (05:29)
[2018-07-25] MEDS: fentaNYL Patch Check Q Shift 1 NOTE FOLLOW UP SCH ×2 (07:11→18:31)
[2018-07-25] MEDS: Ferrous Sulfate TAB* 325 MG PO SCH (08:51)
[2018-07-25] MEDS: Carvedilol TAB* 3.125 MG PO SCH ×2 (08:51→20:57)
[2018-07-25] MEDS: Sertraline* 50 MG TAB PO SCH (08:51)
[2018-07-25] MEDS: amLODIPine TAB* 5 MG PO SCH (08:51)
[2018-07-25 09:23] LABS: ABS Basophils 0 10^3/ul (0-0.2); ABS Eosinophils 0.1 10^3/ul (0-0.6); ABS Lymphocytes 0.6 10^3/ul (1.0-4.8); ABS Monocytes 1.1 10^3/ul (0-0.8); ABS Neutrophils 12.3 10^3/ul (1.5-7.7); ABS Nucleated RBC 0 10^3/ul; Eosinophil % 0.8 %; Hematocrit 35 % (33-41); Hemoglobin 11.1 g/dL (12.0-16.0); Lymphocyte % 4.4 %; Mean Corpuscular HGB Conc 32 g/dL (31-36); Mean Corpuscular Hemoglobin 26 pg (27-31); Mean Corpuscular Volume 83 fL (80-97); Mean Platelet Volume 11.8 fL (7.4-10.4); Nucleated Red Blood Cells % 0; Platelet Count 86 10^3/uL (150-450); Red Blood Count 4.22 10^6 /uL (3.70-4.87); Red Cell Distribution Width 16 % (10.5-15); White Blood Count 14.1 10^3/uL (3.5-10.8)
[2018-07-25 09:27] LABS: Calcium 7.9 mg/dL (8.6-10.3); EGFR African American 63.8 (>60); EGFR Non-African American 52.7 (>60); Potassium 3.5 mmol/L (3.5-5.0)
--- NOTE | 2018-07-25 11:42 | PN ---
Subjective Date of Service: 07/25/18 Interval History: Pt still c/o significant RUQ pain. Ate breakfast today. As per d/w RN abd drains still draining bile Family History: Unchanged from Admission Social History: Unchanged from Admission Past Medical History: Unchanged from Admission Objective Active Medications: Acetaminophen (Tylenol Tab*) 650 mg PO Q6H PRN PRN Reason: FEVER/PAIN Amlodipine Besylate (Norvasc Tab*) 5 mg PO DAILY [facility] Last Admin: 07/25/18 08:51 Dose: 5 mg Carvedilol (Coreg Tab*) 3.125 mg PO BID [facility] Last Admin: 07/25/18 08:51 Dose: 3.125 mg Fentanyl (Duragesic Patch 12 Mcg/Hr *) 12 mcg TRANSDERM Q72H [facility] Last Admin: 07/24/18 18:46 Dose: 12 mcg Ferrous Sulfate (Ferrous Sulfate Tab*) 325 mg PO DAILY [facility] Last Admin: 07/25/18 08:51 Dose: 325 mg Heparin Sodium (Porcine) (Heparin Vial(*)) 5,000 units SUBCUT Q8HR [facility] Last Admin: 07/25/18 05:29 Dose: 5,000 units Metronidazole/Sodium Chloride (Flagyl 500 Mg Ivpb*) 500 mg in 100 mls @ 100 mls /hr IVPB Q8H [facility] Last Admin: 07/25/18 08:52 Dose: 100 mls/hr Lactated Ringer's (Lactated Ringers 1000 Ml Bag*) 1,000 mls @ 50 mls/hr IV PER RATE [facility] Last Admin: 07/25/18 05:29 Dose: 50 mls/hr Ceftriaxone Sodium 1 gm/ (Sodium Chloride) 50 mls @ 200 mls/hr IVPB Q24H [facility] Morphine Sulfate (Morphine 4 Mg/Ml Vial (1 Ml)) 1 mg IV Q1H PRN PRN Reason: SEVERE PAIN Last Admin: 07/22/18 13:56 Dose: 1 mg Pharmacy Profile Note (Fentanyl Patch Check Q Shift) 1 note FOLLOW UP 0700, 1900 [facility] Last Admin: 07/25/18 07:11 Dose: 1 note Prochlorperazine Edisylate (Compazine Inj*) 5 mg IV Q6H PRN PRN Reason: NAUSEA/VOMITING Sertraline HCl (Zoloft*) 50 mg PO DAILY [facility] Last Admin: 07/25/18 08:51 Dose: 50 mg Vital Signs - 8 hr 07/25/18 07/25/18 07:38 08:00 Temperature 97.3 F Pulse Rate 72 Respiratory 18 18 Rate Blood Pressure 137/80 (mmHg) O2 Sat by Pulse 97 Oximetry Oxygen Devices in Use Now: None Appearance: 87 yo F in nAD, oriented to self only Eyes: No Scleral Icterus, PERRLA Ears/Nose/Mouth/Throat: NL Teeth, Lips, Gums, Mucous Membranes Moist Neck: NL Appearance and Movements; NL JVP, Trachea Midline Respiratory: Symmetrical Chest Expansion and Respiratory Effort, Clear to Auscultation Cardiovascular: NL Sounds; No Murmurs; No JVD, RRR Abdominal: - - soft, BS+, tender in epigastrium and RUQ, RUQ drains in plaace with billous material in both bags Lymphatic: No Cervical Adenopathy Extremities: No Edema Skin: No Nodules or Sclerosis Neurological: NL Muscle Strength and Tone Result Diagrams: 07/25/18 08:34 07/25/18 08:33 Microbiology and Other Data: Microbiology 07/19/18 19:31 Aerobic Blood Culture - Preliminary Blood Venous No Growth Day 1 Anaerobic Blood Culture - Preliminary No Growth Day 1 07/19/18 17:34 Aerobic Blood Culture - Preliminary Blood Venous No Growth Day 1 Anaerobic Blood Culture - Preliminary No Growth Day 1 Assess/Plan/Problems-Billing Assessment: Mrs Tellez is an 87yo F with PMH of depression, dementia, DVT/PE, chronic back pain, iron deficiency anemia, HTN, constipation, GERD, UTI, who presented to ED with c/o abdominal pain, found to have sepsis secondary to UTI. - Patient Problems (1) Emphysematous cholecystitis Comment: - s/p drains placement by IR - one in the GB and another in the abscess - will flush q6h. - cx showing Klebsiella . - Antibiotics changed to Ceftriaxone, cont Metronidazole. cont soft diet - Surgery consult appreciated - pt is not improving dramatically. Family is not interested in surgery. Dr. Pappas will see pt prn. will d/c daughter possibility of palliative consult for comfort care (2) Severe sepsis SNOMED Code(s): 69444584 Comment: - Presentation compatible with severe sepsis, with tachycardia and leukocytosis, complicated by ASUNCION. - Source is emphyesematous cholecystitis and perihepatic abscess. (3) ASUNCION (acute kidney injury) Comment: - Improving with fluid resuscitation. (4) Elevated troponin I level Comment: - Likely demand ischemia in the setting of sepsis. - Echo shows EF 60-65% with no wall motion abnormalities. (5) Hypernatremia Comment: - Resolved (6) Thrombocytopenia Comment: - Has had thrombocytopenia on prior admissions. - D/w Hematology (Dr Worthington on 07/21/18) - would monitor platelet count for now. Patient may have mild MDS, exacerbated by her infection now. - No signs of bleeding. - stable (7) DVT (deep venous thrombosis) Comment: - Unclear when she was dx with DVT of the lower leg - Pt is a poor historian and no records at [facility] to confirm - Per patient's family has been on coumadin for approx 25 years after having a DVT, family denied any knowledge of clotting disorders or recurrent DVT's. Grandson Jin stated that patient has not had a DVT within the last 10 years while he was caring for her and has no known history heart disease or irregular heart beat. - Plan to hold coumadin due to thrombocytopenia (8) DVT prophylaxis Comment: - SQ heparin. - Will not resume Warfarin for now, due to thrombocytopenia Status and Disposition: Inpatient.
[2018-07-25] MEDS: cefTRIAXone(*) 1 GM in NS 0.9% 50 ML* 50 ML IVPB SCH (11:46)
--- NOTE | 2018-07-25 11:59 | PN ---
Progress Note - Progress Note Date of Service: 07/25/18 Note: Surgery Progress Note I discussed patient with hospitalist, Dr. Berman. Patient remains stable but not dramatically improved s/p cholecystostomy tube and drainage of perihepatic abscess. She remains afebrile, VSS, WBC stable around 14 and able to tolerate a diet. However, she continues to complain of significant abdominal pain. Drain output not recorded since 07/23. I discussed with Dr. Berman that if the daughter still wishes to decline operative intervention (open subtotal cholecystectomy, abdominal washout, intraabdominal abscess drainage) then the only other options are to reimage and continue IR drainge (potentially upsize the drains or more aspiration of the abscess) and continue jail antibiotics or do nothing further. Dr. Berman plans to speak to daughter regarding her goals of care. Surgery will see as needed. Please call back with any further questions.
[2018-07-26] MEDS: metroNIDAZOLE IV 500 MG/100ML* 500 MG/100 ML BAG IVPB SCH ×3 (00:06→15:16)
[2018-07-26] MEDS: Heparin VIAL(*) 5000 UNITS/ML VIAL (FIVE THOUSAND) SUBCUT SCH ×3 (05:33→20:44)
[2018-07-26] MEDS: Lactated Ringers 1000 ML Bag* 1,000 ML IV SCH (05:34)
[2018-07-26] MEDS: fentaNYL Patch Check Q Shift 1 NOTE FOLLOW UP SCH ×2 (06:11→18:59)
[2018-07-26] MEDS: amLODIPine TAB* 5 MG PO SCH (08:05)
[2018-07-26] MEDS: Sertraline* 50 MG TAB PO SCH (08:05)
[2018-07-26] MEDS: Carvedilol TAB* 3.125 MG PO SCH ×2 (08:05→20:44)
[2018-07-26] MEDS: Ferrous Sulfate TAB* 325 MG PO SCH (08:05)
[2018-07-26] MEDS: cefTRIAXone(*) 1 GM in NS 0.9% 50 ML* 50 ML IVPB SCH (11:16)
--- NOTE | 2018-07-26 13:00 | PN ---
Progress Note - Progress Note Date of Service: 07/26/18 Note: Spoke with daughter Linh Tellez who is her HCP home # & work# at [employer]. I have set up an appointment for 7pm randy to complete MOLST and get a better idea of goals of care. Deepa Abdi Harsha is her POA.
--- NOTE | 2018-07-26 14:10 | PN ---
Subjective Date of Service: 07/26/18 Interval History: Pt appears unchanged, poor PO intake, lethargic, confused. c/o abd pain Family History: Unchanged from Admission Social History: Unchanged from Admission Past Medical History: Unchanged from Admission Objective Active Medications: Acetaminophen (Tylenol Tab*) 650 mg PO Q6H PRN PRN Reason: FEVER/PAIN Amlodipine Besylate (Norvasc Tab*) 5 mg PO DAILY [facility] Last Admin: 07/26/18 08:05 Dose: 5 mg Carvedilol (Coreg Tab*) 3.125 mg PO BID [facility] Last Admin: 07/26/18 08:05 Dose: 3.125 mg Fentanyl (Duragesic Patch 12 Mcg/Hr *) 12 mcg TRANSDERM Q72H [facility] Last Admin: 07/24/18 18:46 Dose: 12 mcg Ferrous Sulfate (Ferrous Sulfate Tab*) 325 mg PO DAILY [facility] Last Admin: 07/26/18 08:05 Dose: 325 mg Heparin Sodium (Porcine) (Heparin Vial(*)) 5,000 units SUBCUT Q8HR [facility] Last Admin: 07/26/18 14:02 Dose: 5,000 units Metronidazole/Sodium Chloride (Flagyl 500 Mg Ivpb*) 500 mg in 100 mls @ 100 mls /hr IVPB Q8H [facility] Last Admin: 07/26/18 08:05 Dose: 100 mls/hr Lactated Ringer's (Lactated Ringers 1000 Ml Bag*) 1,000 mls @ 50 mls/hr IV PER RATE [facility] Last Admin: 07/26/18 05:34 Dose: 50 mls/hr Ceftriaxone Sodium 1 gm/ (Sodium Chloride) 50 mls @ 200 mls/hr IVPB Q24H [facility] Last Admin: 07/26/18 11:16 Dose: 200 mls/hr Morphine Sulfate (Morphine 4 Mg/Ml Vial (1 Ml)) 1 mg IV Q1H PRN PRN Reason: SEVERE PAIN Last Admin: 07/22/18 13:56 Dose: 1 mg Pharmacy Profile Note (Fentanyl Patch Check Q Shift) 1 note FOLLOW UP 0700, 1900 [facility] Last Admin: 07/26/18 06:11 Dose: 1 note Prochlorperazine Edisylate (Compazine Inj*) 5 mg IV Q6H PRN PRN Reason: NAUSEA/VOMITING Sertraline HCl (Zoloft*) 50 mg PO DAILY [facility] Last Admin: 07/26/18 08:05 Dose: 50 mg Vital Signs - 8 hr 07/26/18 07/26/18 07/26/18 07:40 07:48 08:00 Temperature 98.2 F 98.2 F Pulse Rate 65 65 Respiratory 16 16 18 Rate Blood Pressure 154/74 154/74 (mmHg) O2 Sat by Pulse 95 95 Oximetry 07/26/18 07/26/18 09:08 12:09 Temperature 98.0 F Pulse Rate 68 Respiratory 18 18 Rate Blood Pressure 122/72 (mmHg) O2 Sat by Pulse 97 Oximetry Oxygen Devices in Use Now: None Appearance: 87 yo F in nAD, oriented to self only, lethargic Eyes: No Scleral Icterus, PERRLA Ears/Nose/Mouth/Throat: NL Teeth, Lips, Gums, Mucous Membranes Moist Neck: NL Appearance and Movements; NL JVP, Trachea Midline Respiratory: Symmetrical Chest Expansion and Respiratory Effort, Clear to Auscultation Cardiovascular: NL Sounds; No Murmurs; No JVD, RRR Abdominal: - - soft, drain in RUQ draining bile, tender in epigastrium, BS+ Lymphatic: No Cervical Adenopathy Extremities: No Edema Skin: No Nodules or Sclerosis Neurological: NL Muscle Strength and Tone Result Diagrams: 07/25/18 08:34 07/25/18 08:33 Microbiology and Other Data: Microbiology 07/19/18 19:31 Aerobic Blood Culture - Preliminary Blood Venous No Growth Day 1 Anaerobic Blood Culture - Preliminary No Growth Day 1 07/19/18 17:34 Aerobic Blood Culture - Preliminary Blood Venous No Growth Day 1 Anaerobic Blood Culture - Preliminary No Growth Day 1 Assess/Plan/Problems-Billing Assessment: Mrs Tellez is an 87yo F with PMH of depression, dementia, DVT/PE, chronic back pain, iron deficiency anemia, HTN, constipation, GERD, UTI, who presented to ED with c/o abdominal pain, found to have sepsis secondary to UTI. - Patient Problems (1) Emphysematous cholecystitis Comment: - s/p drains placement by IR - one in the GB and another in the abscess - will flush q6h. - cx showing Klebsiella . - Antibiotics changed to Ceftriaxone, cont Metronidazole. cont soft diet - Surgery consult appreciated - pt is not improving. Family is not interested in surgery. Dr. Pappas will see pt prn. Dr. Owens will d/w daughter possibility of comfort care (2) Severe sepsis SNOMED Code(s): 22320171 Comment: - Presentation compatible with severe sepsis, with tachycardia and leukocytosis, complicated by ASUNCION. - Source is emphyesematous cholecystitis and perihepatic abscess. (3) ASUNCION (acute kidney injury) Comment: - Improving with fluid resuscitation. (4) Elevated troponin I level Comment: - Likely demand ischemia in the setting of sepsis. - Echo shows EF 60-65% with no wall motion abnormalities. (5) Hypernatremia Comment: - Resolved (6) Thrombocytopenia Comment: - Has had thrombocytopenia on prior admissions. - D/w Hematology (Dr Worthington on 07/21/18) - would monitor platelet count for now. Patient may have mild MDS, exacerbated by her infection now. - No signs of bleeding. - stable (7) DVT (deep venous thrombosis) Comment: - Unclear when she was dx with DVT of the lower leg - Pt is a poor historian and no records at [facility] to confirm - Per patient's family has been on coumadin for approx 25 years after having a DVT, family denied any knowledge of clotting disorders or recurrent DVT's. Grandson Jin stated that patient has not had a DVT within the last 10 years while he was caring for her and has no known history heart disease or irregular heart beat. - Plan to hold coumadin due to thrombocytopenia (8) DVT prophylaxis Comment: - SQ heparin. - Will not resume Warfarin for now, due to thrombocytopenia Status and Disposition: Inpatient.
--- NOTE | 2018-07-26 21:09 | CONSULT ---
Palliative / Hospice Consult Ordering Provider: Lori Berman - Dr Calista Carrillo - Subjective Code Status: DNR Advance Directives Location: No Advance Directives MOLST Part A Completed: Yes - updated today with daughter MOLST Part E Completed:: Yes - updated today with daughter - History or Present Illness History or Present Illness: 87yo female resident of [facility] with moderate severe dementia who was transported to ER because of change in appetite, activity and abdominal pain. PMH is significant for chronic back pain, iron deficiency anemia, GERD, depression, DVT/PE on coumadin, HTN and aortic aneurysms repaired. Pertinent labs CXR- low lung volumes, Ekg-old infarct, ECHO EF 60-65%, Abd U/S stones no obstruction and free fluid near R lobe of liver, CT abd/pelvis- gallbladder with air, H/H 11.1/35, wbc 14.1, plt 86, BUN/Cr 21/1 egfr 52.7, Ca 7.9, tprot 5.4 & alb 2.1. Gallbladder fluid cultured showed klebsiella. Pt was diagnosed with emphysematous gallbladder and drains were placed because family didn't want surgery and pt would be a poor surgical risk. Pt is a non smoker/no etoh/ no drug use, with 2 children. Lab Values: Laboratory Last Values WBC 14.1 10^3/uL (3.5-10.8) H 07/25/18 08:34 RBC 4.22 10^6 /uL (3.70-4.87) 07/25/18 08:34 Hgb 11.1 g/dL (12.0-16.0) L 07/25/18 08:34 Hct 35 % (33-41) 07/25/18 08:34 MCV 83 fL (80-97) 07/25/18 08:34 MCH 26 pg (27-31) L 07/25/18 08:34 MCHC 32 g/dL (31-36) 07/25/18 08:34 RDW 16 % (10.5-15) H 07/25/18 08:34 Plt Count 86 10^3/uL (150-450) L 07/25/18 08:34 MPV 11.8 fL (7.4-10.4) H 07/25/18 08:34 Neut % (Auto) 87.1 % 07/25/18 08:34 Lymph % (Auto) 4.4 % 07/25/18 08:34 [place] % (Auto) 7.5 % 07/25/18 08:34 Eos % (Auto) 0.8 % 07/25/18 08:34 Baso % (Auto) 0.2 % 07/25/18 08:34 Absolute Neuts (auto) 12.3 10^3/ul (1.5-7.7) H 07/25/18 08:34 Absolute Lymphs (auto) 0.6 10^3/ul (1.0-4.8) L 07/25/18 08:34 Absolute Monos (auto) 1.1 10^3/ul (0-0.8) H 07/25/18 08:34 Absolute Eos (auto) 0.1 10^3/ul (0-0.6) 07/25/18 08:34 Absolute Basos (auto) 0 10^3/ul (0-0.2) 07/25/18 08:34 Absolute Nucleated RBC 0 10^3/ul 07/25/18 08:34 Nucleated RBC % 0 07/25/18 08:34 INR (Anticoag Therapy) 1.44 (0.77-1.02) H 07/22/18 05:14 Sodium 135 mmol/L (135-145) 07/25/18 08:33 Potassium 3.5 mmol/L (3.5-5.0) 07/25/18 08:33 Chloride 105 mmol/L (101-111) 07/25/18 08:33 Carbon Dioxide 25 mmol/L (22-32) 07/25/18 08:33 Anion Gap 5 mmol/L (2-11) 07/25/18 08:33 BUN 21 mg/dL (6-24) 07/25/18 08:33 Creatinine 1.00 mg/dL (0.51-0.95) H 07/25/18 08:33 Est GFR ( Amer) 63.8 (>60) 07/25/18 08:33 Est GFR (Non-Af Amer) 52.7 (>60) 07/25/18 08:33 BUN/Creatinine Ratio 21.0 (8-20) H 07/25/18 08:33 Glucose 124 mg/dL (70-100) H 07/25/18 08:33 POC Glucose (mg/dL) 141 mg/dL (70-100) H 07/20/18 21:00 Lactic Acid 1.4 mmol/L (0.5-2.0) 07/19/18 13:52 Calcium 7.9 mg/dL (8.6-10.3) L 07/25/18 08:33 Magnesium 2.8 mg/dL (1.9-2.7) H 07/19/18 13:52 Total Bilirubin 0.60 mg/dL (0.2-1.0) 07/24/18 07:54 GGT 41 U/L (9-64.0) 07/21/18 05:54 AST 14 U/L (13-39) 07/24/18 07:54 ALT 11 U/L (7-52) 07/24/18 07:54 Alkaline Phosphatase 80 U/L (34-104) 07/24/18 07:54 Troponin I 0.04 ng/mL (<0.04) H* 07/19/18 23:45 C-Reactive Protein 93.06 mg/L (<8.01) H 07/23/18 08:50 Total Protein 5.4 g/dL (6.4-8.9) L 07/24/18 07:54 Albumin 2.1 g/dL (3.2-5.2) L 07/24/18 07:54 Globulin 3.3 g/dL (2-4) 07/24/18 07:54 Albumin/Globulin Ratio 0.6 (1-3) L 07/24/18 07:54 Amylase 35 U/L (29-103) 07/21/18 05:54 Lipase 17 U/L (11.0-82.0) 07/21/18 05:54 TSH 1.14 mcIU/mL (0.34-5.60) 07/19/18 13:52 Urine Color [place] 07/19/18 13:52 Urine Appearance Turbid 07/19/18 13:52 Urine pH 5.0 (5-9) 07/19/18 13:52 Ur Specific [place] 1.018 (1.010-1.030) 07/19/18 13:52 Urine Protein 2+(100 mg/dl) (Negative) A 07/19/18 13:52 Urine Ketones Negative (Negative) 07/19/18 13:52 Urine Blood 3+ (Negative) A 07/19/18 13:52 Urine Nitrate Positive (Negative) A 07/19/18 13:52 Urine Bilirubin Negative (Negative) 07/19/18 13:52 Urine Urobilinogen Negative (Negative) 07/19/18 13:52 Ur Leukocyte Esterase 1+ (Negative) A 07/19/18 13:52 Urine WBC (Auto) 1+(6-10/hpf) (Absent) A 07/19/18 13:52 Urine RBC (Auto) 3+(>10/hpf) (Absent) A 07/19/18 13:52 Ur Squamous Epith Cells Present (Absent) A 07/19/18 13:52 Urine Bacteria 3+ (Absent) A 07/19/18 13:52 Hyaline Casts Present (Absent) A 07/19/18 13:52 Urine Glucose Negative (Negative) 07/19/18 13:52 Urine Ascorbic Acid * (Negative) A 07/19/18 13:52 Fluid Source Oth 07/21/18 18:29 Fluid Volume 14 mL 07/21/18 18:29 Fluid Color Red 07/21/18 18:29 Fluid Appearance Cloudy 07/21/18 18:29 Fluid WBC 3081 /mcL (0-388248) 07/21/18 18:29 Fluid RBC 30242 /mcL 07/21/18 18:29 Fluid Tot Cell Count 100 07/21/18 18:29 Fluid Neutrophils 81 % 07/21/18 18:29 Fluid Lymphocytes 10 % 07/21/18 18:29 Fluid Monocytes 9 % 07/21/18 18:29 Fluid Cell Count Rvw By 07/21/18 18:29 - Objective Active Medications: Acetaminophen (Tylenol Tab*) 650 mg PO Q6H PRN PRN Reason: FEVER/PAIN Amlodipine Besylate (Norvasc Tab*) 5 mg PO DAILY [facility] Last Admin: 07/26/18 08:05 Dose: 5 mg Carvedilol (Coreg Tab*) 3.125 mg PO BID [facility] Last Admin: 07/26/18 20:44 Dose: 3.125 mg Fentanyl (Duragesic Patch 12 Mcg/Hr *) 12 mcg TRANSDERM Q72H [facility] Last Admin: 07/24/18 18:46 Dose: 12 mcg Ferrous Sulfate (Ferrous Sulfate Tab*) 325 mg PO DAILY [facility] Last Admin: 07/26/18 08:05 Dose: 325 mg Heparin Sodium (Porcine) (Heparin Vial(*)) 5,000 units SUBCUT Q8HR [facility] Last Admin: 07/26/18 20:44 Dose: 5,000 units Metronidazole/Sodium Chloride (Flagyl 500 Mg Ivpb*) 500 mg in 100 mls @ 100 mls /hr IVPB Q8H [facility] Last Admin: 07/26/18 15:16 Dose: 100 mls/hr Lactated Ringer's (Lactated Ringers 1000 Ml Bag*) 1,000 mls @ 50 mls/hr IV PER RATE [facility] Last Admin: 07/26/18 05:34 Dose: 50 mls/hr Ceftriaxone Sodium 1 gm/ (Sodium Chloride) 50 mls @ 200 mls/hr IVPB Q24H [facility] Last Admin: 07/26/18 11:16 Dose: 200 mls/hr Morphine Sulfate (Morphine 4 Mg/Ml Vial (1 Ml)) 1 mg IV Q1H PRN PRN Reason: SEVERE PAIN Last Admin: 07/22/18 13:56 Dose: 1 mg Pharmacy Profile Note (Fentanyl Patch Check Q Shift) 1 note FOLLOW UP 0700, 1900 [facility] Last Admin: 07/26/18 18:59 Dose: 1 note Prochlorperazine Edisylate (Compazine Inj*) 5 mg IV Q6H PRN PRN Reason: NAUSEA/VOMITING Sertraline HCl (Zoloft*) 50 mg PO DAILY [facility] Last Admin: 07/26/18 08:05 Dose: 50 mg Vital Signs: Vital Signs: Temp Pulse Resp BP Pulse Ox 98.2 F 73 18 133/74 93 07/26/18 19:57 07/26/18 19:57 07/26/18 19:57 07/26/18 19:57 07/26/18 19:57 Patient Weight: Weight 74.933 kg Intake and Output: Intake & Output 07/24/18 07/25/18 07/26/18 07/27/18 06:59 06:59 06:59 06:59 Intake Total 2004 724 9886 750 Output Total 935 250 Balance 441 098 8380 500 Weight 72.847 kg 74.208 kg 74.933 kg Intake: IV Fluids 20 842 LR 842 ns 0.9% 20 IVPB 100 100 380 flagyl 100 100 380 Oral 1140 720 360 750 Output: MARJ #1 120 70 MARJ #2 155 180 Urine 420 Sykes 240 Other: Estimated Void Large Large Small Medium Date of Last Bowel 07/23/18 Movement # Bowel Movements 0 0 0 Estimated Stool Amount Medium Medium # Voids 1 2 0 2 ADLs: Meal Record Start: 07/19/18 14: 42 Freq: DAILY@0900,1400,1800 Status: Active Protocol: Created 07/19/18 14:42 System (Rec: 07/19/18 14:42 System MED-C13) Document 07/19/18 18:00 [id number] (Rec: 07/19/18 18:33 [id number] MED-C09) Document 07/20/18 08:14 [id number] (Rec: 07/20/18 08:14 [id number] MED-C09) Document 07/20/18 14:00 [id number] (Rec: 07/20/18 14:00 [id number] MED-C11) Document 07/20/18 18:00 [id number] (Rec: 07/20/18 21:10 [id number] MED-C11) Document 07/21/18 09:00 [id number] (Rec: 07/21/18 09:56 [id number] MED-C11) Document 07/21/18 13:32 [id number] (Rec: 07/21/18 13:32 [id number] MED-C11) Document 07/21/18 18:00 [id number] (Rec: 07/21/18 18:33 [id number] MED-C11) Document 07/22/18 09:00 RQF5701 (Rec: 07/22/18 09:35 [id number] MED-C11) Document 07/22/18 14:00 DCW1701 (Rec: 07/22/18 14:38 [id number] MED-C11) Document 07/22/18 16:00 OQL7688 (Rec: 07/22/18 18:11 [id number] MED-C11) Document 07/22/18 18:00 [id number] (Rec: 07/22/18 18:40 [id number] MED-C11) Document 07/23/18 09:00 [id number] (Rec: 07/23/18 09:18 [id number] MED-C09) Document 07/23/18 14:00 NCG0177 (Rec: 07/23/18 15:29 [id number] MED-C07) Document 07/23/18 18:00 QBD1282 (Rec: 07/23/18 18:08 [id number] MED-C11) Document 07/23/18 20:00 [id number] (Rec: 07/23/18 21:58 [id number] MED-C04) Document 07/24/18 09:00 TGJ5182 (Rec: 07/24/18 10:12 FJV4267 MED-C09) Document 07/24/18 14:00 IGB9029 (Rec: 07/24/18 17:21 [id number] MED-C09) Document 07/24/18 18:00 [id number] (Rec: 07/24/18 18:56 [id number] MED-C09) Document 07/25/18 09:00 LBP9274 (Rec: 07/25/18 09:58 RFD6564 MED-C11) Document 07/25/18 14:00 MEX0171 (Rec: 07/25/18 19:18 [id number] MED-C09) Document 07/25/18 18:00 XQV2364 (Rec: 07/25/18 19:21 IPQ1762 MED-C09) Document 07/26/18 08:00 IEH4861 (Rec: 07/26/18 10:47 BFJ7115 MED-C05) Document 07/26/18 09:04 ETV3493 (Rec: 07/26/18 09:05 [id number] MED-C13) Document 07/26/18 14:00 FZF1259 (Rec: 07/26/18 14:23 AZT2424 MED-C05) Document 07/26/18 18:00 FOE3085 (Rec: 07/26/18 18:24 [id number] MED-C05) Intake and Output Start: 07/19/18 13: 06 Freq: Status: Complete Protocol: Created 07/19/18 13:06 System (Rec: 07/19/18 13:06 System EDRM-C08) Intake and Output Start: 07/19/18 14: 42 Freq: DAILY@0600,1400,2200 Status: Active Protocol: Created 07/19/18 14:42 System (Rec: 07/19/18 14:42 System MED-C13) Document 07/19/18 21:35 [id number] (Rec: 07/19/18 21:38 [id number] MED-C12) Document 07/20/18 05:19 EMM2332 (Rec: 07/20/18 05:20 [id number] MED-C12) Document 07/20/18 13:20 OMI4626 (Rec: 07/20/18 13:21 [id number] MED-C11) Document 07/20/18 21:59 NQB0595 (Rec: 07/20/18 22:00 [id number] MED-C11) Document 07/21/18 06:00 [id number] (Rec: 07/21/18 06:15 [id number] MED-C09) Document 07/21/18 14:00 UXS9799 (Rec: 07/21/18 15:50 [id number] MED-C11) Document 07/21/18 22:00 [id number] (Rec: 07/21/18 22:11 [id number] MED-C11) Document 07/22/18 05:57 HRJ0482 (Rec: 07/22/18 05:59 MKV6517 MED-C11) Document 07/22/18 08:07 NQJ8629 (Rec: 07/22/18 08:10 PLC1849 MED-M02) Document 07/22/18 08:10 PVN0083 (Rec: 07/22/18 08:10 [id number] MED-M02) Document 07/22/18 14:00 ZFJ3202 (Rec: 07/22/18 14:38 [id number] MED-C11) Document 07/22/18 19:00 DCZ7177 (Rec: 07/22/18 19:00 XQB9134 MED-M02) Document 07/22/18 19:11 BOC5164 (Rec: 07/22/18 19:15 [id number] MED-M02) Document 07/22/18 20:55 ZUI5260 (Rec: 07/22/18 20:57 JDR6662 MED-C09) Document 07/23/18 06:00 HJG9446 (Rec: 07/23/18 06:38 [id number] MED-C11) Document 07/23/18 09:53 RQD8478 (Rec: 07/23/18 09:54 LOP8551 MED-C07) Document 07/23/18 14:00 HWV1502 (Rec: 07/23/18 14:09 NIX0500 MED-C11) Document 07/23/18 16:17 TKL8123 (Rec: 07/23/18 16:17 MQE6113 MED-C07) Document 07/23/18 17:15 ZUK6708 (Rec: 07/23/18 17:15 NPI7552 MED-C07) Document 07/23/18 21:54 [id number] (Rec: 07/23/18 21:57 UVT8162 MED-C04) Document 07/24/18 14:00 MNU9029 (Rec: 07/24/18 17:21 [id number] MED-C09) Document 07/24/18 23:48 KGP0977 (Rec: 07/24/18 23:48 PKS8270 MED-M18) Document 07/25/18 05:20 WCE6109 (Rec: 07/25/18 05:20 VGC1819 MED-C09) Document 07/25/18 14:00 YLH5097 (Rec: 07/25/18 19:20 [id number] MED-C09) Document 07/25/18 22:00 YQE4550 (Rec: 07/25/18 22:18 [id number] MED-C07) Document 07/26/18 05:44 TYL0468 (Rec: 07/26/18 05:46 TLJ5355 MED-C07) Document 07/26/18 08:35 SHT7763 (Rec: 07/26/18 16:04 [id number] MED-C16) Document 07/26/18 14:00 LQC4472 (Rec: 07/26/18 14:24 VIC6093 MED-C05) Document 07/26/18 16:51 KXC9544 (Rec: 07/26/18 16:52 LOQ9396 MED-C16) Eyes: No Scleral Icterus, PERRLA Ears/Nose/Mouth/Throat: NL Teeth, Lips, Gums, Mucous Membranes Moist Neck: NL Appearance and Movements; NL JVP, Trachea Midline Cardiovascular: NL Sounds; No Murmurs; No JVD, RRR Respiratory: Clear to Auscultation Abdominal: NL Sounds; No Tenderness; No Distention Extremities: No Edema Neurological: NL Muscle Strength and Tone - Assessment Assessment: 87yo female with moderate severe dementia and emphysematous gallbladder currently with drains and receiving antibiotics - Plan Consult Plan (MU): Palliative Plan: Long discussion with daughter Laura [phone] about care options. Daughter would like to have mother go to [facility] since it is closer to the daughter. She wants to know how long the antibiotics and drain will be needed. We updated the MOLST form DNR/DNI with comfort care measures. She doesn't want her mother to suffer or prolong her life with heroic measures. For now she is okay with her receiving the antibiotics as long as her mother is improving if she starts to decline she is ok with stopping them. She feels the same about the drains. Pt had been in a nursing facility(1yr) in [place] where her grandson lives who is the POA then he moved to [place] and pt moved to [facility]. She was hospitalized at [facility] and sent to [facility] for rehab and her stay was converted to placement(1yr) . Daughter feels her mother would not want to return to the hospital. We discussed hospice and it's benefits but daughter would have to self refer once mom is at retirement. Hospice brochure was given and information for [facility]. Daughter is aware that her mother may due to infection if it has spread to the abdominal cavity. She also realizes the antibiotics may not continue to work and the drains may get clogged. If that happens she doesn't want them to be reinserted. Since her mother looks much better than when she was admitted she wants to continue the antibiotics and the drains for now. - Time On Unit Date of Evaluation: 07/26/18 Hospice Consult Time in: 18:30 Hospice Consult Time Out: 20:00 Hospice Consult Time Total: 90 > 50% of Time Spend In Counseling or Coordinating Care: Yes
[2018-07-27] MEDS: metroNIDAZOLE IV 500 MG/100ML* 500 MG/100 ML BAG IVPB SCH (00:18)
[2018-07-27] MEDS: Lactated Ringers 1000 ML Bag* 1,000 ML IV SCH (05:15)
[2018-07-27] MEDS: Heparin VIAL(*) 5000 UNITS/ML VIAL (FIVE THOUSAND) SUBCUT SCH ×3 (05:15→21:03)
[2018-07-27] MEDS: fentaNYL Patch Check Q Shift 1 NOTE FOLLOW UP SCH ×2 (07:18→18:47)
[2018-07-27] MEDS: Amoxicillin/Clavulanate TAB* 500 MG PO SCH ×3 (09:50→21:03)
[2018-07-27] MEDS: Sertraline* 50 MG TAB PO SCH (09:51)
[2018-07-27] MEDS: Carvedilol TAB* 3.125 MG PO SCH ×2 (09:51→21:03)
[2018-07-27] MEDS: Ferrous Sulfate TAB* 325 MG PO SCH (09:51)
[2018-07-27] MEDS: amLODIPine TAB* 5 MG PO SCH (09:51)
--- NOTE | 2018-07-27 13:48 | PN ---
Subjective Date of Service: 07/27/18 Interval History: pt feels well today, up in a chair. the abd pain is "minimal" Family History: Unchanged from Admission Social History: Unchanged from Admission Past Medical History: Unchanged from Admission Objective Active Medications: Acetaminophen (Tylenol Tab*) 650 mg PO Q6H PRN PRN Reason: FEVER/PAIN Last Admin: 07/27/18 09:56 Dose: 650 mg Amlodipine Besylate (Norvasc Tab*) 5 mg PO DAILY [facility] Last Admin: 07/27/18 09:51 Dose: 5 mg Amoxicillin/Clavulanate Potassium (Augmentin Tab*) 500 mg PO TID [facility] Last Admin: 07/27/18 13:30 Dose: 500 mg Carvedilol (Coreg Tab*) 3.125 mg PO BID [facility] Last Admin: 07/27/18 09:51 Dose: 3.125 mg Fentanyl (Duragesic Patch 12 Mcg/Hr *) 12 mcg TRANSDERM Q72H [facility] Last Admin: 07/24/18 18:46 Dose: 12 mcg Ferrous Sulfate (Ferrous Sulfate Tab*) 325 mg PO DAILY [facility] Last Admin: 07/27/18 09:51 Dose: 325 mg Heparin Sodium (Porcine) (Heparin Vial(*)) 5,000 units SUBCUT Q8HR [facility] Last Admin: 07/27/18 13:30 Dose: 5,000 units Morphine Sulfate (Morphine 4 Mg/Ml Vial (1 Ml)) 1 mg IV Q1H PRN PRN Reason: SEVERE PAIN Last Admin: 07/22/18 13:56 Dose: 1 mg Pharmacy Profile Note (Fentanyl Patch Check Q Shift) 1 note FOLLOW UP 0700, 1900 [facility] Last Admin: 07/27/18 07:18 Dose: 1 note Prochlorperazine Edisylate (Compazine Inj*) 5 mg IV Q6H PRN PRN Reason: NAUSEA/VOMITING Sertraline HCl (Zoloft*) 50 mg PO DAILY [facility] Last Admin: 07/27/18 09:51 Dose: 50 mg Vital Signs - 8 hr 07/27/18 07/27/18 07/27/18 07:51 08:00 11:15 Temperature 98.2 F 98.2 F Pulse Rate 71 78 Respiratory 16 18 16 Rate Blood Pressure 144/74 131/74 (mmHg) O2 Sat by Pulse 97 Oximetry Oxygen Devices in Use Now: None Appearance: 87 yo F in nAD, AAOx2 Eyes: No Scleral Icterus, PERRLA Ears/Nose/Mouth/Throat: NL Teeth, Lips, Gums, Mucous Membranes Moist Neck: NL Appearance and Movements; NL JVP, Trachea Midline Respiratory: Symmetrical Chest Expansion and Respiratory Effort, Clear to Auscultation Cardiovascular: NL Sounds; No Murmurs; No JVD, RRR Abdominal: - - mild epigastric tenderness, BS+, 2x drain in RUQ draining bile Lymphatic: No Cervical Adenopathy Extremities: No Edema, No Clubbing, Cyanosis Skin: No Rash or Ulcers Neurological: NL Muscle Strength and Tone Result Diagrams: 07/25/18 08:34 07/25/18 08:33 Microbiology and Other Data: Microbiology 07/19/18 19:31 Aerobic Blood Culture - Preliminary Blood Venous No Growth Day 1 Anaerobic Blood Culture - Preliminary No Growth Day 1 07/19/18 17:34 Aerobic Blood Culture - Preliminary Blood Venous No Growth Day 1 Anaerobic Blood Culture - Preliminary No Growth Day 1 Assess/Plan/Problems-Billing Assessment: Mrs Tellez is an 87yo F with PMH of depression, dementia, DVT/PE, chronic back pain, iron deficiency anemia, HTN, constipation, GERD, UTI, who presented to ED with c/o abdominal pain, found to have sepsis secondary to UTI. - Patient Problems (1) Emphysematous cholecystitis Comment: - s/p drains placement by IR - one in the GB and another in the abscess - cont flushing q6h. - cx showing Klebsiella . - Antibiotics changed to Augmentin today. cont soft diet - Surgery consult appreciated . Family is not interested in surgery. Dr. Pappas will see pt prn. Dr. Owens will d/w daughter possibility of comfort care to which daughter agrees. Daughter requested placement in [facility] Swing is possible daughter OK with continuation of antibiotics (2) Severe sepsis SNOMED Code(s): 82505510 Comment: - Presentation compatible with severe sepsis, with tachycardia and leukocytosis, complicated by ASUNCION. - Source is emphyesematous cholecystitis and perihepatic abscess. (3) ASUNCION (acute kidney injury) Comment: - Improving with fluid resuscitation. (4) Elevated troponin I level Comment: - Likely demand ischemia in the setting of sepsis. - Echo shows EF 60-65% with no wall motion abnormalities. (5) Hypernatremia Comment: - Resolved (6) Thrombocytopenia Comment: - Has had thrombocytopenia on prior admissions. - D/w Hematology (Dr Worthington on 07/21/18) Patient may have mild MDS, exacerbated by her infection now. - No signs of bleeding. - stable (7) DVT (deep venous thrombosis) Comment: - Unclear when she was dx with DVT of the lower leg - Pt is a poor historian and no records [place] [facility] [place] - Per patient's family has been on coumadin for approx 25 years after having a DVT, family denied any knowledge of clotting disorders or recurrent DVT's. Grandanjali Abdi stated that patient has not had a DVT within the last 10 years while he was caring for her and has no known history heart disease or irregular heart beat. - Plan to hold coumadin due to thrombocytopenia (8) DVT prophylaxis Comment: - SQ heparin. - Will not resume Warfarin for now, due to thrombocytopenia Status and Disposition: Inpatient. comfort care, awaiting placement
[2018-07-27] MEDS: fentaNYL PATCH 12 MCG/HR TRANSDERM SCH (18:46)
[2018-07-28] MEDS: Heparin VIAL(*) 5000 UNITS/ML VIAL (FIVE THOUSAND) SUBCUT SCH ×3 (05:24→21:40)
[2018-07-28] MEDS: fentaNYL Patch Check Q Shift 1 NOTE FOLLOW UP SCH ×2 (07:15→18:56)
[2018-07-28] MEDS: Ferrous Sulfate TAB* 325 MG PO SCH (09:20)
[2018-07-28] MEDS: amLODIPine TAB* 5 MG PO SCH (09:21)
[2018-07-28] MEDS: Amoxicillin/Clavulanate TAB* 500 MG PO SCH ×3 (09:21→20:39)
[2018-07-28] MEDS: Carvedilol TAB* 3.125 MG PO SCH ×2 (09:21→20:39)
[2018-07-28] MEDS: Sertraline* 50 MG TAB PO SCH (09:21)
[2018-07-28] MEDS ORDERED: Morphine ORAL CONCENTRATE* 5 MG/0.25 ML ORAL.SYRIN SL PRN (10:45)
[2018-07-28] MEDS ORDERED: Atropine 1% (ORAL/SL)* 15 ML BTL SL PRN (10:45)
--- NOTE | 2018-07-28 10:50 | PN ---
Subjective Date of Service: 07/28/18 Interval History: Pt refused to eat today, lethargic, c/o no pain Family History: Unchanged from Admission Social History: Unchanged from Admission Past Medical History: Unchanged from Admission Objective Active Medications: Acetaminophen (Tylenol Tab*) 650 mg PO Q6H PRN PRN Reason: FEVER/PAIN Last Admin: 07/27/18 09:56 Dose: 650 mg Amlodipine Besylate (Norvasc Tab*) 5 mg PO DAILY [facility] Last Admin: 07/28/18 09:21 Dose: 5 mg Amoxicillin/Clavulanate Potassium (Augmentin Tab*) 500 mg PO TID [facility] Last Admin: 07/28/18 09:21 Dose: 500 mg Atropine Sulfate (Atropine 1% (Oral/Sl)*) 2 drop SL Q2H PRN PRN Reason: DISCOMFORT Carvedilol (Coreg Tab*) 3.125 mg PO BID [facility] Last Admin: 07/28/18 09:21 Dose: 3.125 mg Fentanyl (Duragesic Patch 12 Mcg/Hr *) 12 mcg TRANSDERM Q72H [facility] Last Admin: 07/27/18 18:46 Dose: 12 mcg Ferrous Sulfate (Ferrous Sulfate Tab*) 325 mg PO DAILY [facility] Last Admin: 07/28/18 09:20 Dose: 325 mg Heparin Sodium (Porcine) (Heparin Vial(*)) 5,000 units SUBCUT Q8HR [facility] Last Admin: 07/28/18 05:24 Dose: 5,000 units Morphine Sulfate (Morphine 4 Mg/Ml Vial (1 Ml)) 1 mg IV Q1H PRN PRN Reason: SEVERE PAIN Last Admin: 07/22/18 13:56 Dose: 1 mg Morphine Sulfate (Morphine Oral Concentrate*) 5 mg SL Q2H PRN PRN Reason: PAIN Pharmacy Profile Note (Fentanyl Patch Check Q Shift) 1 note FOLLOW UP 0700, 1900 [facility] Last Admin: 07/28/18 07:15 Dose: 1 note Prochlorperazine Edisylate (Compazine Inj*) 5 mg IV Q6H PRN PRN Reason: NAUSEA/VOMITING Sertraline HCl (Zoloft*) 50 mg PO DAILY [facility] Last Admin: 07/28/18 09:21 Dose: 50 mg Vital Signs - 8 hr 07/28/18 07/28/18 07/28/18 02:54 03:22 07:32 Temperature 97.4 F 97.4 F 97.6 F Pulse Rate 69 69 70 Respiratory 18 18 16 Rate Blood Pressure 159/79 159/79 139/67 (mmHg) O2 Sat by Pulse 96 96 96 Oximetry 07/28/18 09:26 Temperature Pulse Rate Respiratory 17 Rate Blood Pressure (mmHg) O2 Sat by Pulse Oximetry Oxygen Devices in Use Now: None Appearance: 87 yo F in nAD, aAOx2, lethargic Eyes: No Scleral Icterus, PERRLA Ears/Nose/Mouth/Throat: NL Teeth, Lips, Gums, Mucous Membranes Moist Neck: NL Appearance and Movements; NL JVP, Trachea Midline Respiratory: Symmetrical Chest Expansion and Respiratory Effort, Clear to Auscultation Cardiovascular: NL Sounds; No Murmurs; No JVD, RRR Abdominal: - - tender in epigastric region, RUQ 2x drains and bile in drain bags , BS+, no rebound, no guarding Lymphatic: No Cervical Adenopathy Extremities: No Edema Skin: No Nodules or Sclerosis Neurological: NL Muscle Strength and Tone Result Diagrams: 07/25/18 08:34 07/25/18 08:33 Microbiology and Other Data: Microbiology 07/19/18 19:31 Aerobic Blood Culture - Preliminary Blood Venous No Growth Day 1 Anaerobic Blood Culture - Preliminary No Growth Day 1 07/19/18 17:34 Aerobic Blood Culture - Preliminary Blood Venous No Growth Day 1 Anaerobic Blood Culture - Preliminary No Growth Day 1 Assess/Plan/Problems-Billing Assessment: Mrs Tellez is an 87yo F with PMH of depression, dementia, DVT/PE, chronic back pain, iron deficiency anemia, HTN, constipation, GERD, UTI, who presented to ED with c/o abdominal pain, found to have sepsis secondary to UTI. - Patient Problems (1) Emphysematous cholecystitis Comment: - s/p drains placement by IR - one in the GB and another in the abscess - cont flushing q6h. - cx showing Klebsiella . - Antibiotics to Augmentin today. cont soft diet - Surgery consult appreciated . Family is not interested in surgery. Dr. Pappas will see pt prn. Dr. Owens will d/w daughter possibility of comfort care to which daughter agreed.Pt placed on comfort care on 07/27/18. Daughter requested placement in [facility] Swing is possible daughter OK with continuation of antibiotics (2) Severe sepsis SNOMED Code(s): 93319188 Comment: - Presentation compatible with severe sepsis, with tachycardia and leukocytosis, complicated by ASUNCION. - Source is emphyesematous cholecystitis and perihepatic abscess. (3) ASUNCION (acute kidney injury) Comment: due to sepssis comfort care (4) Elevated troponin I level Comment: - Likely demand ischemia in the setting of sepsis. - Echo shows EF 60-65% with no wall motion abnormalities. (5) Hypernatremia Comment: - Resolved (6) Thrombocytopenia Comment: - Has had thrombocytopenia on prior admissions. - No signs of bleeding. -comfort care (7) DVT (deep venous thrombosis) Comment: - Plan to hold coumadin due to thrombocytopenia (8) DVT prophylaxis Comment: no prophylaxis due to comfort care Status and Disposition: Inpatient. comfort care, awaiting placement
[2018-07-29] MEDS: Heparin VIAL(*) 5000 UNITS/ML VIAL (FIVE THOUSAND) SUBCUT SCH (05:40)
[2018-07-29] MEDS: fentaNYL Patch Check Q Shift 1 NOTE FOLLOW UP SCH ×2 (07:25→18:55)
[2018-07-29] MEDS: amLODIPine TAB* 5 MG PO SCH (08:42)
[2018-07-29] MEDS: Ferrous Sulfate TAB* 325 MG PO SCH (08:42)
[2018-07-29] MEDS: Carvedilol TAB* 3.125 MG PO SCH ×2 (08:42→20:57)
[2018-07-29] MEDS: Sertraline* 50 MG TAB PO SCH (08:42)
[2018-07-29] MEDS: Amoxicillin/Clavulanate TAB* 500 MG PO SCH ×3 (08:42→20:57)
--- NOTE | 2018-07-29 12:48 | PN ---
Subjective Date of Service: 07/29/18 Interval History: Pt c/o no pain. Poor PO intake. Lethargic today Family History: Unchanged from Admission Social History: Unchanged from Admission Past Medical History: Unchanged from Admission Objective Active Medications: Acetaminophen (Tylenol Tab*) 650 mg PO Q6H PRN PRN Reason: FEVER/PAIN Last Admin: 07/27/18 09:56 Dose: 650 mg Amlodipine Besylate (Norvasc Tab*) 5 mg PO DAILY [facility] Last Admin: 07/29/18 08:42 Dose: 5 mg Amoxicillin/Clavulanate Potassium (Augmentin Tab*) 500 mg PO TID [facility] Last Admin: 07/29/18 08:42 Dose: 500 mg Atropine Sulfate (Atropine 1% (Oral/Sl)*) 2 drop SL Q2H PRN PRN Reason: DISCOMFORT Carvedilol (Coreg Tab*) 3.125 mg PO BID [facility] Last Admin: 07/29/18 08:42 Dose: 3.125 mg Fentanyl (Duragesic Patch 12 Mcg/Hr *) 12 mcg TRANSDERM Q72H [facility] Last Admin: 07/27/18 18:46 Dose: 12 mcg Ferrous Sulfate (Ferrous Sulfate Tab*) 325 mg PO DAILY [facility] Last Admin: 07/29/18 08:42 Dose: 325 mg Heparin Sodium (Porcine) (Heparin Vial(*)) 5,000 units SUBCUT Q8HR [facility] Last Admin: 07/29/18 05:40 Dose: 5,000 units Morphine Sulfate (Morphine 4 Mg/Ml Vial (1 Ml)) 1 mg IV Q1H PRN PRN Reason: SEVERE PAIN Last Admin: 07/22/18 13:56 Dose: 1 mg Morphine Sulfate (Morphine Oral Concentrate*) 5 mg SL Q2H PRN PRN Reason: PAIN Pharmacy Profile Note (Fentanyl Patch Check Q Shift) 1 note FOLLOW UP 0700, 1900 [facility] Last Admin: 07/29/18 07:25 Dose: 1 note Prochlorperazine Edisylate (Compazine Inj*) 5 mg IV Q6H PRN PRN Reason: NAUSEA/VOMITING Sertraline HCl (Zoloft*) 50 mg PO DAILY [facility] Last Admin: 07/29/18 08:42 Dose: 50 mg Vital Signs - 8 hr 07/29/18 07/29/18 07/29/18 07:50 08:55 11:34 Temperature 97.1 F 97.3 F Pulse Rate 80 72 Respiratory 16 18 16 Rate Blood Pressure 146/87 119/64 (mmHg) O2 Sat by Pulse 97 95 Oximetry Oxygen Devices in Use Now: None Appearance: 87 yo F in nAD, AAOx1 Eyes: No Scleral Icterus Ears/Nose/Mouth/Throat: NL Teeth, Lips, Gums, Mucous Membranes Moist Neck: NL Appearance and Movements; NL JVP, Trachea Midline Respiratory: Symmetrical Chest Expansion and Respiratory Effort, Clear to Auscultation Cardiovascular: NL Sounds; No Murmurs; No JVD Abdominal: - - soft, tender in epigastrium, no rebound, no guarding, BS+, 2x drains in place one from abscess with mimal purulent drainage, the one from gallbladder with bile in bag Lymphatic: No Cervical Adenopathy Extremities: No Edema Skin: No Nodules or Sclerosis Neurological: NL Muscle Strength and Tone Result Diagrams: 07/25/18 08:34 07/25/18 08:33 Microbiology and Other Data: Microbiology 07/19/18 19:31 Aerobic Blood Culture - Preliminary Blood Venous No Growth Day 1 Anaerobic Blood Culture - Preliminary No Growth Day 1 07/19/18 17:34 Aerobic Blood Culture - Preliminary Blood Venous No Growth Day 1 Anaerobic Blood Culture - Preliminary No Growth Day 1 Assess/Plan/Problems-Billing Assessment: Mrs Tellez is an 87yo F with PMH of depression, dementia, DVT/PE, chronic back pain, iron deficiency anemia, HTN, constipation, GERD, UTI, who presented to ED with c/o abdominal pain, found to have sepsis secondary to UTI. - Patient Problems (1) Emphysematous cholecystitis Comment: - s/p drains placement by IR - one in the GB and another in the abscess - cont flushing q6h. - cx showing Klebsiella . - Antibiotics changed to PO Augmentin ,cont soft diet - Surgery consult appreciated . Family is not interested in surgery. Dr. Pappas will see pt prn. Dr. Owens will d/w daughter possibility of comfort care to which daughter agreed.Pt placed on comfort care on 07/27/18. Daughter requested placement in [facility] Swing is possible daughter OK with continuation of antibiotics (2) Severe sepsis SNOMED Code(s): 72981823 Comment: - Presentation compatible with severe sepsis, with tachycardia and leukocytosis, complicated by ASUNCION. - Source is emphyesematous cholecystitis and perihepatic abscess. (3) ASUNCION (acute kidney injury) Comment: due to sepsis comfort care (4) Elevated troponin I level Comment: - Likely demand ischemia in the setting of sepsis. - Echo shows EF 60-65% with no wall motion abnormalities. (5) Hypernatremia Comment: - Resolved (6) Thrombocytopenia Comment: - Has had thrombocytopenia on prior admissions. - No signs of bleeding. -comfort care (7) DVT (deep venous thrombosis) Comment: - Plan to hold coumadin due to thrombocytopenia (8) DVT prophylaxis Comment: no prophylaxis due to comfort care Status and Disposition: Inpatient. comfort care, awaiting placement
[2018-07-30] MEDS: fentaNYL Patch Check Q Shift 1 NOTE FOLLOW UP SCH ×2 (06:59→19:24)
[2018-07-30] MEDS: Amoxicillin/Clavulanate TAB* 500 MG PO SCH ×3 (10:30→21:35)
[2018-07-30] MEDS: Sertraline* 50 MG TAB PO SCH (10:30)
[2018-07-30] MEDS: amLODIPine TAB* 5 MG PO SCH (10:30)
[2018-07-30] MEDS: Carvedilol TAB* 3.125 MG PO SCH ×2 (10:30→21:35)
[2018-07-30] MEDS: Ferrous Sulfate TAB* 325 MG PO SCH (10:30)
--- NOTE | 2018-07-30 13:44 | PN ---
Subjective Date of Service: 07/30/18 Interval History: Pt feels well, denies pain. per d/w RN she was noted to have problems with swallowing liquids. Speech eval ordered. Pt has poor PO intake Family History: Unchanged from Admission Social History: Unchanged from Admission Past Medical History: Unchanged from Admission Objective Active Medications: Acetaminophen (Tylenol Tab*) 650 mg PO Q6H PRN PRN Reason: FEVER/PAIN Last Admin: 07/27/18 09:56 Dose: 650 mg Amlodipine Besylate (Norvasc Tab*) 5 mg PO DAILY [facility] Last Admin: 07/30/18 10:30 Dose: 5 mg Amoxicillin/Clavulanate Potassium (Augmentin Tab*) 500 mg PO TID [facility] Last Admin: 07/30/18 10:30 Dose: 500 mg Atropine Sulfate (Atropine 1% (Oral/Sl)*) 2 drop SL Q2H PRN PRN Reason: DISCOMFORT Carvedilol (Coreg Tab*) 3.125 mg PO BID [facility] Last Admin: 07/30/18 10:30 Dose: 3.125 mg Fentanyl (Duragesic Patch 12 Mcg/Hr *) 12 mcg TRANSDERM Q72H [facility] Last Admin: 07/27/18 18:46 Dose: 12 mcg Ferrous Sulfate (Ferrous Sulfate Tab*) 325 mg PO DAILY [facility] Last Admin: 07/30/18 10:30 Dose: 325 mg Morphine Sulfate (Morphine 4 Mg/Ml Vial (1 Ml)) 1 mg IV Q1H PRN PRN Reason: SEVERE PAIN Last Admin: 07/22/18 13:56 Dose: 1 mg Morphine Sulfate (Morphine Oral Concentrate*) 5 mg SL Q2H PRN PRN Reason: PAIN Pharmacy Profile Note (Fentanyl Patch Check Q Shift) 1 note FOLLOW UP 0700, 1900 [facility] Last Admin: 07/30/18 06:59 Dose: 1 note Prochlorperazine Edisylate (Compazine Inj*) 5 mg IV Q6H PRN PRN Reason: NAUSEA/VOMITING Sertraline HCl (Zoloft*) 50 mg PO DAILY [facility] Last Admin: 07/30/18 10:30 Dose: 50 mg Oxygen Devices in Use Now: None Appearance: 87 yo F in nAD, AAOx1 Eyes: No Scleral Icterus, PERRLA Ears/Nose/Mouth/Throat: NL Teeth, Lips, Gums, Mucous Membranes Moist Neck: NL Appearance and Movements; NL JVP, Trachea Midline Respiratory: Symmetrical Chest Expansion and Respiratory Effort Cardiovascular: NL Sounds; No Murmurs; No JVD, RRR Abdominal: - - soft, tender in epigastrium , no rebound, no guarding, BS+, 2x drain present in RUQ , one bag with bile in it, the other draining scant puss Lymphatic: No Cervical Adenopathy Extremities: No Edema Skin: No Rash or Ulcers, No Nodules or Sclerosis Neurological: NL Muscle Strength and Tone Result Diagrams: 07/25/18 08:34 07/25/18 08:33 Microbiology and Other Data: Microbiology 07/19/18 19:31 Aerobic Blood Culture - Preliminary Blood Venous No Growth Day 1 Anaerobic Blood Culture - Preliminary No Growth Day 1 07/19/18 17:34 Aerobic Blood Culture - Preliminary Blood Venous No Growth Day 1 Anaerobic Blood Culture - Preliminary No Growth Day 1 Assess/Plan/Problems-Billing Assessment: Mrs Tellez is an 87yo F with PMH of depression, dementia, DVT/PE, chronic back pain, iron deficiency anemia, HTN, constipation, GERD, UTI, who presented to ED with c/o abdominal pain, found to have sepsis secondary to UTI. - Patient Problems (1) Emphysematous cholecystitis Comment: - s/p drains placement by IR - one in the GB and another in the abscess - cont flushing q6h. - cx showing Klebsiella . - Antibiotics changed to PO Augmentin ,cont soft diet - Surgery consult appreciated . Family is not interested in surgery. Dr. Pappas will see pt prn. Dr. Owens will d/w daughter possibility of comfort care to which daughter agreed. Pt placed on comfort care on 07/27/18. Daughter requested placement in [facility] Swing is possible daughter OK with continuation of antibiotics (2) Severe sepsis SNOMED Code(s): 62150399 Comment: - Presentation compatible with severe sepsis, with tachycardia and leukocytosis, complicated by ASUNCION. - Source is emphyesematous cholecystitis and perihepatic abscess. (3) ASUNCION (acute kidney injury) Comment: due to sepsis comfort care (4) Elevated troponin I level Comment: - Likely demand ischemia in the setting of sepsis. - Echo shows EF 60-65% with no wall motion abnormalities. (5) Hypernatremia Comment: - Resolved (6) Thrombocytopenia Comment: - Has had thrombocytopenia on prior admissions. - No signs of bleeding. -comfort care (7) DVT (deep venous thrombosis) Comment: - Plan to hold coumadin due to thrombocytopenia (8) DVT prophylaxis Comment: no prophylaxis due to comfort care Status and Disposition: Inpatient. comfort care, awaiting placement
[2018-07-30] MEDS: fentaNYL PATCH 12 MCG/HR TRANSDERM SCH (19:23)
[2018-07-31] MEDS: fentaNYL Patch Check Q Shift 1 NOTE FOLLOW UP SCH (07:54)
[2018-07-31 09:42] VITALS: BP 128/70
[2018-07-31] MEDS: amLODIPine TAB* 5 MG PO SCH (09:49)
[2018-07-31] MEDS: Ferrous Sulfate TAB* 325 MG PO SCH (09:49)
[2018-07-31] MEDS: Amoxicillin/Clavulanate TAB* 500 MG PO SCH ×2 (09:49→13:43)
[2018-07-31] MEDS: Sertraline* 50 MG TAB PO SCH (09:49)
[2018-07-31] MEDS: Carvedilol TAB* 3.125 MG PO SCH (09:49)
--- NOTE | 2018-07-31 13:39 | DS ---
[facility] * DATE OF ADMISSION: 07/19/2018. DATE OF DISCHARGE: 07/31/2018. PRINCIPAL DISCHARGE DIAGNOSES: 1. Emphysematous cholecystitis. 2. Sepsis, now resolved. 3. Comfort care. 4. Acute kidney injury. 5. Supratherapeutic INR. 6. Hypernatremia. SECONDARY DISCHARGE DIAGNOSES: 1. Dementia. 2. Hypertension. 3. Iron deficiency anemia. 4. History of DVT/PE. 5. Chronic back pain. PERTINENT IMAGING FROM THIS ADMISSION: Abdomen and pelvis CT from 07/21/2018 showed a distended gallbladder with air within the gallbladder wall and gallbladder itself. Findings are suspicious for emphysematous cholecystitis. Adjacent fluid collection is also present. PROCEDURES DONE DURING THIS HOSPITALIZATION: On 07/21/2018, Dr. Potts from Interventional Radiology placed a cholecystotomy tube under CT guidance. An 8 Swedish abscess drainage catheter was placed in the perihepatic abscess. PHYSICAL EXAMINATION AT THE TIME OF DISCHARGE: General: Alert, elderly female in no distress. She is resting comfortably in bed. Vital Signs: Temperature 96.3, heart rate 73, respiratory rate 19, pulse ox 96 percent on room air, blood pressure 144/82. HEENT: Pupils equal, round, and reactive to light. Oral mucosa is moist. Neck: No JVP, no adenopathy. Chest: She is in a regular rate and rhythm with no murmurs. Lungs: Clear bilaterally. Abdomen: Her abdomen has a MARJ drain in the right upper quadrant, draining brown clear fluid. Her abdomen is soft and mildly tender diffusely to palpation with no guarding or rebound and no CVA tenderness. Extremities: No edema, rashes or ulcers. Neurologic: Her strength is 5/5 in all extremities. HOSPITAL COURSE BY PROBLEM: 1. Acute emphysematous cholecystitis with sepsis: She came to the emergency department with abdominal pain. Please see Dr. Spence's history and physical from July 19 for a complete description of the history of present illness. An abdominal ultrasound was performed on that same day and showed free fluid along the lateral inferior margin of the right lobe of the liver and cholelithiasis without signs of biliary obstruction or acute cholecystitis. She continued to have abdominal pain; however, she had an ASUNCION, so a CT was not initially pursued. When her renal function improved, she got a CT abdomen and pelvis with contrast which showed concern for emphysematous cholecystitis. Then Dr. Pappas from Surgery evaluated her; however, Ms. Tellez's daughter did not want surgery for the patient. Based on this decision, comfort care was pursued and Dr. Owens of Palliative Care was consulted and agreed with this plan. Her daughter agreed to a cholecystotomy tube which was placed under CT guidance on July 21 and has continued to drain adequately. She has been continued on Augmentin and this will be continued indefinitely. Her family was not ready to pursue hospice, so the continuation of antibiotics will need to be re-evaluated depending on Ms. Tellez progresses over the next coming days and weeks. The drain is to be maintained and emptied and flushed b.i.d. 2. Sepsis: As mentioned, she met sepsis criteria at admission which resolved on IV fluids and antibiotics. 3. Acute kidney injury: This resolved with IV fluid resuscitation and was likely related to sepsis. 4. History of PE and DVT: Anticoagulation was held because when she arrived her INR was 9.6; however, it was not resumed after comfort care was decided. 5. Hypernatremia: At admission, her sodium was 155. This was slowly corrected and normalized with gentle free water repletion. 6. Elevated troponin: Her troponin was 0.05 at admission and trended down from there. This was thought to be related to sepsis and no further work-up was obtained. She was monitored on telemetry with no events. DISPOSITION: Ms. Tellez is being discharged to [facility] under comfort care. Her pain is well-controlled at this time. Her family is not ready to pursue hospice yet; however, she may be an appropriate candidate depending on how she progresses over the next days to weeks. Amoxicillin/Clavulanate is currently to be continued indefinitely; however, this can be reassessed depending on whether she continues to improve or declines at [facility]. The drain is to be maintained indefinitely as well. TIME SPENT: 45 minutes were spent on this discharge. [id number]/CPS #: [id number] DEMARIO
== END 2018-07-31 14:10 | DRG 871 ==
LOC: ED 12:32 → MED 13:29
PROVIDERS: ADMIT Internal Medicine; ATTEND Internal Medicine
PROC: 0F9430Z Drainage of Gallbladder with Drainage Device, Percutaneous Approach (ICD-10-PCS; principal; 2018-07-21)
PROC: 0F9130Z Drainage of Right Lobe Liver with Drainage Device, Percutaneous Approach (ICD-10-PCS; 2018-07-21)
DX: A41.9 Sepsis, unspecified organism (principal); K75.0 Abscess of liver; N17.9 Acute kidney failure, unspecified; K80.00 Calculus of gallbladder with acute cholecystitis without obstruction; K82.A2 Perforation of gallbladder in cholecystitis; E87.0 Hyperosmolality and hypernatremia; I24.8 Other forms of acute ischemic heart disease; N39.0 Urinary tract infection, site not specified; D69.6 Thrombocytopenia, unspecified; F03.90 Unspecified dementia, unspecified severity, without behavioral disturbance, psychotic disturbance, mood disturbance, and anxiety; R65.20 Severe sepsis without septic shock; Z66 Do not resuscitate; K21.9 Gastro-esophageal reflux disease without esophagitis; I10 Essential (primary) hypertension; E87.6 Hypokalemia; F32.9 Major depressive disorder, single episode, unspecified; R79.1 Abnormal coagulation profile; D50.9 Iron deficiency anemia, unspecified; D46.9 Myelodysplastic syndrome, unspecified; Z51.5 Encounter for palliative care; R74.8 Abnormal levels of other serum enzymes; M54.9 Dorsalgia, unspecified; K59.00 Constipation, unspecified; Z96.641 Presence of right artificial hip joint; Z86.711 Personal history of pulmonary embolism; Z86.718 Personal history of other venous thrombosis and embolism; Z87.440 Personal history of urinary (tract) infections; Z88.5 Allergy status to narcotic agent; Z88.8 Allergy status to other drugs, medicaments and biological substances; Z91.011 Allergy to milk products; Z79.01 Long term (current) use of anticoagulants; Z79.899 Other long term (current) drug therapy
CPT/HCPCS: 36415; 49406; 71045; 74177; 76700; 80048; 80053; 81003; 82150; 82247; 82977; 83605; 83690; 83735; 84443; 84450; 84460; 84484; 85025; 85610; 86140; 87040; 87070; 87077; 87186; 87205; 88112; 88173; 89051; 93005; 93306; 99284; A9270-GY; C1729; C1769; C9132; G8978-GP-CM; G8979-GP-CJ; J0692; J0696; J1644; J2270; J3010; J3475; J3480; J3490; Q9967